=== PATIENT | female | born 1990 | race Caucasian/White ===

== ENCOUNTER 2018-06-25 11:14 | Inpatient (IN) ==
[2018-06-25] MEDS ORDERED: HUMULIN R SUBQ ONE (11:35)
[2018-06-25] MEDS ORDERED: NS 1,000 ML IV ONE ×2 (12:18→12:47)
[2018-06-25] MEDS ORDERED: LEVAQUIN 500 MG/D5W 500 MG/100 ML IVPB IV ONE (12:19)
[2018-06-25 12:46] LABS: BASO# 0.04 X1000 (0.0-0.2); BASO% 0.4 % (0.0-0.8); EOS# 0.04 X1000 (0.0-0.7); EOS% 0.4 % (0.0-10.0); HEMATOCRIT 44.8 % (37.0-47.0); IMM GRAN# 0.03 X1000 (0.0-0.04); IMM GRAN% 0.3 % (0.0-0.5); LYMPH# 1.05 X1000 (1.2-3.4); MCHC 33.5 g/dL (33-37); MCV 95.5 FL (81-99); MONO# 0.85 X1000 (0.11-0.59); MONO% 8.9 % (1.7-9.3); MPV 9.2 FL (7.4-10.4); NEUT# 7.51 X1000 (1.4-6.5); PLT 399 X1000 (130-400); RBC 4.69 XMIL (4.2-5.4); RDW 11.7 % (11.5-14.5); WBC 9.52 X1000 (4.8-10.8)
[2018-06-25 13:30] LABS: AGAP 16; ALB/GLOB RATIO 0.9; ALBUMIN 3.8 g/dL (3.5-5.0); ALKALINE PHOSPHATASE 236 U/L (32-104); BUN 30 mg/dL (8-22); CALCIUM 9.1 mg/dL (8.8-10.2); CHLORIDE 88 mmol/L (98-107); COSMO 284; CREATININE 0.9 mg/dL (0.5-0.9); ESTIMATED GFR > 60; GLUCOSE 478 mg/dL (70-104); GOT 57 U/L (10-30); GPT 42 U/L (10-36); POTASSIUM 5.7 mmol/L (3.5-5.1); SODIUM 128 mmol/L (136-145); TCO2 24 mmol/L (25-35); TOTAL BILIRUBIN 0.63 mg/dL (0.20-1.00); TOTAL PROTEIN 8.1 g/dL (6.3-8.3)
[2018-06-25 13:40] LABS: URINE SOURCE CLEAN CATCH
[2018-06-25 13:48] LABS: BILIRUBIN URINE NEGATIVE (NEGATIVE); BLOOD URINE MODERATE (NEGATIVE); COLOR ORANGE; GLUCOSE URINE >1000 mg/dL (NEGATIVE); KETONE URINE 10 mg/dL (NEGATIVE); LEUKOCYTES URINE LARGE (NEGATIVE); NITRITE URINE POSITIVE (NEGATIVE); PH URINE 5.5; PROTEIN URINE 50 mg/dL (NEGATIVE); SP GRAVITY URINE 1.021; TURBIDITY URINE TURBID (CLEAR); UROBILINOGEN URINE NORMAL (NORMAL)
[2018-06-25 13:54] LABS: UR EPITHELIAL CELLS <10 /HPF (<10); URINE BACTERIA 4+ /HPF; URINE WBC TNTC /HPF (<10)
[2018-06-25 14:04] LABS: URINE YEAST NONE SEEN
[2018-06-25] MEDS ORDERED: SODIUM BICARBONATE 4.2% IV ONE (14:09)
[2018-06-25] MEDS ORDERED: SODIUM BICARBONATE 8.4% IV PUSH ONE (14:16)
[2018-06-25] MEDS ORDERED: ZOFRAN IV PRN (14:18)
[2018-06-25] MEDS ORDERED: TYLENOL PO PRN (14:18)
[2018-06-25 14:32] LABS: ALLEN TEST NO; BE -5.4 mmoll (-3.0-3.0); BLOOD TYPE ARTERIAL; HCO3-(ACT) 20.7 mmoll (20.0-26.0); METHB 0.5 % (0.0-1.5); MODALITY ROOM AIR; O2(CT) 18.4 mL/dL (15.0-23.0); O2HB 95.9 % (95.0-99.0); PCO2(98.6) 41 mmHg (35-45); PO2(98.6) 91 mmHg (60-100); SAMPLE BLOOD; THB 13.6 g/dL (11.5-17.4); pH(98.6) 7.31 (7.35-7.45)
[2018-06-25] MEDS ORDERED: KAYEXALATE PO ONE (14:41)
[2018-06-25] MEDS: MAXIPIME 1 GM in NS 50 ML IV SCH (14:45)
[2018-06-25] MEDS: NS 1,000 ML IV SCH ×2 (15:30→22:18)
--- NOTE | 2018-06-25 15:31 | PROVIDER DOCUMENTATION ---
This chart was entered by Pilar Wong Scribe, acting as scribe for Augusto Du MD. HPI-General Adult - General Chief Complaint: High Blood Sugar Stated Complaint: HIGH BLOOD SUGAR Time Seen by Provider: 06/25/18 11:31 Source: patient, family Allergies/Adverse Reactions: Patient Allergies Allergy/AdvReac Type Severity Reaction Status Date / Time sulfamethoxazole Allergy Intermediate HIVES Verified 06/25/18 13:35 [From Bactrim] trimethoprim [From Bactrim] Allergy Intermediate HIVES Verified 06/25/18 13:35 Home Medications: Home Medication List Medication Instructions Recorded Confirmed Last Taken Type Insulin Glargine [Lantus] 30 units SQ QAM 08/16/15 06/25/18 06/25/18 History Insulin Lispro [Humalog] 10 unit SUBQ TID 08/26/15 06/25/18 06/25/18 History Insulin NPH Hum/Reg Insulin Hm 100 unit SQ BID 30 Days #1 05/27/18 06/25/18 Rx [Humulin 70/30 Kwikpen] insuln.pen - History of Present Illness -Gen Adult Nature of Presenting Problems: 28 y/o female presents to ED with hyperglycemia and dysuria onset 11 hours ago. Pt reports she ran out of insulin 11 hours ago. Pt states she "feels awful." Pt also reports painful urination and vomiting. Pt is alert and oriented. Location of Pain/Injury: reports: generalized Pain Radiation: reports: no radiation Quality of Pain: reports: aching, burning, sharp Severity: reports: mild Onset/Duration: reports: this morning (11 hours ago) Timing: reports: still present Context/Activities at Onset: reports: none Modifying Factors: improves with: other medication (insulin). worse with: urinating Associated Symptoms: reports: vomiting, other (hyperglycemia; "feels awful;" dysuria; painful urination) Similar Symptoms Previously?: No Recently seen or treated by another doctor?: No - Diabetes Related Context Context: reports: high blood sugar Review of Systems - Adult - REVIEW OF SYSTEMS - ADULT Constitutional: reports: other ("feels awful"). denies: chills, fever Eyes: reports: no symptoms reported Ears, Nose, Mouth & Throat: reports: no symptoms reported Cardiovascular: denies: chest pain, palpitations Respiratory: denies: cough, shortness of breath Gastrointestinal: reports: vomiting. denies: abdominal pain, diarrhea, nausea Genitourinary: reports: dysuria, other (painful urination) Musculoskeletal: denies: back pain, joint pain Integumentary: reports: no symptoms reported Neurological: denies: dizziness/vertigo, seizure Psychiatric: reports: no symptoms reported Endocrine: reports: other (hyperglycemia). denies: goiter Hematologic/Lymphatic: reports: no symptoms reported Allergic/Immunologic: reports: no symptoms reported All Other Systems: Reviewed and Negative Past History - Adult - PAST MEDICAL HISTORY-ADULT Review of Records: reports: Old Records Reviewed, Nursing Assessment Review, Medications Reviewed Major Childhood Illnesses: reports: denies history Cardiovascular: reports: denies history Respiratory: reports: denies history Gastrointestinal: reports: denies history Obstetrical/Gynecological: reports: denies history Genitourinary: reports: denies history Musculoskeletal: reports: denies history Neurological: reports: denies history Psychiatric: reports: denies history Endocrine/Immune: reports: Diabetes Other Conditions: reports: denies history - PRIOR SURGERIES/PROCEDURES Surgical/Procedure History: reports: BTL, , orthopedic (extremity) (R knee), other (D&C) - PRIOR HOSPITALIZATIONS Prior Hospitalizations: reports: none - IMMUNIZATION STATUS Childhood Immunizations: See Nurse Assessment Flu Vaccine: See Nurse Assessment - FAMILY HISTORY Family History: reviewed, not pertinent - SOCIAL HISTORY Smoking: less than 1 pack/day Provider spent 3-5 mins advising pt. on dangers of tobacco.: Discussed manners to quit use, and f/u contacts for add'l counseling. Substance Use: other Alcohol Use Frequency: occasionally Living Situation: family Physical Exam-General - PHYSICAL EXAM-ADULT Initial Vital Signs Reviewed: Yes - CONSTITUTIONAL General Appearance: appears well, no apparent distress, lethargic - EYES Eyes: PERRL/EOMI, pink conjunctivae - HEAD, EARS, NOSE, MOUTH & THROAT HENMT: normocephalic/atraumatic, moist mucous membranes, normal ENT inspection - NECK Neck: non-tender, full range of motion - RESPIRATORY Respiratory: chest non-tender, lungs clear, normal breath sounds - CARDIOVASCULAR Cardiovascular: tachycardia - GASTROINTESTINAL (ABDOMEN) Abdominal Exam: normal bowel sounds, soft, tenderness (suprapubic) - MUSCULOSKELETAL Back Exam: normal inspection, no CVA tenderness Extremity: normal range of motion, non-tender, normal gait - SKIN Integumentary: normal color, warm/dry - NEUROLOGIC Neurologic: grossly normal - PSYCHIATRIC Psych/Mental Status: normal mood/affect, normal thought content, normal thought process Progress - PLAN OF CARE/RESULTS Progress/Plan/Lab Results: Vital Signs - 8 hr 06/25/18 11:19 Temperature 98.2 F Pulse Rate 136 H Respiratory Rate 16 Blood Pressure 108/90 O2 Sat by Pulse Oximetry 99 Laboratory Results - last 24 hr 06/25/18 06/25/18 11:24 12:30 WBC 9.52 RBC 4.69 Hgb 15.0 Hct 44.8 MCV 95.5 MCH 32.0 H MCHC 33.5 RDW Std Deviation 11.7 Plt Count 399 MPV 9.2 Immature Gran % (Auto) 0.3 Neut % (Auto) 79.0 H Lymph % (Auto) 11.0 L Gillespie % (Auto) 8.9 Eos % (Auto) 0.4 Baso % (Auto) 0.4 Immature Gran # (Auto) 0.03 Neut # (Auto) 7.51 H Lymph # (Auto) 1.05 L Gillespie # (Auto) 0.85 H Eos # (Auto) 0.04 Baso # (Auto) 0.04 POC Glucose 474 H Orders Category Date Time Status Glucose Finger Stick [FSBS/Accucheck Result] NOW Care 06/25/18 12:55 Active Saline Loc NOW Care 06/25/18 11:34 Active CBC WITH ELECTRONIC DIFF [HEME] Stat Lab 06/25/18 12:30 Completed COMPREHENSIVE METABOLIC PANEL [CHEM] Stat Lab 06/25/18 12:30 Received MAGNESIUM [CHEM] Stat Lab 06/25/18 12:30 Received UA [URINALYSIS W/POSS RFLX CULT] [URINALYSIS] Stat Lab 06/25/18 11:34 Uncollected 0.9% Sodium Chloride Inj [Ns] 1,000 ml Med 06/25/18 12:18 Active IV 999 mls/hr 0.9% Sodium Chloride Inj [Ns] 1,000 ml Med 06/25/18 12:47 Active IV 999 mls/hr Insulin Human Regular [Humulin R] Med 06/25/18 11:35 Discontinued 6 unit SUBQ NOW ONE Levofloxacin 500 mg/D5w [Levaquin 500 mg/D5w] Med 06/25/18 12:19 Active 500 mg in 100 ml IV NOW EKG [EKG] Stat Ther 06/25/18 11:25 Ordered Laboratory Tests 06/25/18 06/25/18 06/25/18 11:24 12:30 12:30 WBC 9.52 RBC 4.69 Hgb 15.0 Hct 44.8 MCV 95.5 MCH 32.0 H MCHC 33.5 RDW Std Deviation 11.7 Plt Count 399 MPV 9.2 Immature Gran % (Auto) 0.3 Neut % (Auto) 79.0 H Lymph % (Auto) 11.0 L Gillespie % (Auto) 8.9 Eos % (Auto) 0.4 Baso % (Auto) 0.4 Immature Gran # (Auto) 0.03 Neut # (Auto) 7.51 H Lymph # (Auto) 1.05 L Gillespie # (Auto) 0.85 H Eos # (Auto) 0.04 Baso # (Auto) 0.04 Sodium 128 L Potassium 5.7 H Chloride 88 L Carbon Dioxide 24 L Anion Gap 16 BUN 30 H Creatinine 0.9 Estimated GFR/1.73 m2 > 60 BUN/Creatinine Ratio 33 Glucose 478 H* POC Glucose 474 H Calculated Osmolality 284 Calcium 9.1 Magnesium Total Bilirubin 0.63 AST 57 H ALT 42 H Alkaline Phosphatase 236 H Total Protein 8.1 Albumin 3.8 Globulin 4.3 Albumin/Globulin Ratio 0.9 Urine Source Urine Color Urine Turbidity Urine pH Ur Specific Vina Urine Protein Ur Glucose (Stick) Ur Ketones (Stick) Urine Blood Urine Nitrite Urine Bilirubin Urobilinogen Dipstick Urine Leukocytes Urine WBC (Auto) Urine RBC (Auto) U Epithel Cells (Auto) Urine Bacteria (Auto) Urine Crystals Small Round Cells Urine Casts Urine Yeast-like Cells 06/25/18 06/25/18 06/25/18 12:30 13:15 13:29 WBC RBC Hgb Hct MCV MCH MCHC RDW Std Deviation Plt Count MPV Immature Gran % (Auto) Neut % (Auto) Lymph % (Auto) Gillespie % (Auto) Eos % (Auto) Baso % (Auto) Immature Gran # (Auto) Neut # (Auto) Lymph # (Auto) Gillespie # (Auto) Eos # (Auto) Baso # (Auto) Sodium Potassium Chloride Carbon Dioxide Anion Gap BUN Creatinine Estimated GFR/1.73 m2 BUN/Creatinine Ratio Glucose POC Glucose 476 H Calculated Osmolality Calcium Magnesium 1.9 Total Bilirubin AST ALT Alkaline Phosphatase Total Protein Albumin Globulin Albumin/Globulin Ratio Urine Source CLEAN CATCH Urine Color ORANGE Urine Turbidity TURBID Urine pH 5.5 Ur Specific Vina 1.021 Urine Protein 50 A Ur Glucose (Stick) >1000 A Ur Ketones (Stick) 10 A Urine Blood MODERATE A Urine Nitrite POSITIVE A Urine Bilirubin NEGATIVE Urobilinogen Dipstick NORMAL Urine Leukocytes LARGE A Urine WBC (Auto) TNTC A Urine RBC (Auto) 10-20 A U Epithel Cells (Auto) <10 Urine Bacteria (Auto) 4+ Urine Crystals Not Reportable Small Round Cells Not Reportable Urine Casts Not Reportable Urine Yeast-like Cells NONE SEEN A/P: Pt in DKA, started DKA protocol. will admit to ICU for higher level of care. Result Diagrams: 06/25/18 12:30 06/25/18 12:30 - REASSESSMENT Reassessment #1 Time Reassessed: 11:45 Status: unchanged Reassessment #2 Time Reassessed: 13:30 Status: unchanged (awiaitng Tx) - EKG 1 Time of EKG reading by physician:: 12:30 EKG Read and Signed by:: Augusto Du EKG Interpretation (*Must complete 3 of following elements*): Abnormal Rate: 123 Rhythm: Unusual P axis, possible ectopic atrial tach [place]: normal QRS: other (L posterior fascicular block; cannot rule out anterior infarct) OK Interval: normal ST Wave: normal - CONSULTS/PCP/HOSPITALIST Notification #1 *Consult/PCP/Hospitalist*: Ivis sharma Dr. Time Discussed: 14:29 Reason/Comments: DKA Consult Disposition: Admit Departure - Departure Date of Disposition Decision: 06/25/18 Time of Disposition Decision: 14:29 DIAGNOSIS: Tobacco abuse disorder DKA (diabetic ketoacidoses) Qualifiers: Diabetes mellitus complication detail: without coma UTI (urinary tract infection) Qualifiers: Urinary tract infection type: site unspecified Hematuria presence: with hematuria Qualified Code(s): N39.0 - Urinary tract infection, site not specified ; R31.9 - Hematuria, unspecified Disposition: ADMITTED INPATIENT 09 Certified Medical Emergency: Emergent Condition: Fair - Critical Care Note This patient required my direct & personal management of CC.: No Attestation - Physician/ ALFREDO Attestation Patient care was provided by Advanced Practice Provider:: No The physician spent face to face time with patient:: Yes Advanced Practice Provider documentation review:: Supervising physician onsite and consulted in the evaluation and care of this patient. The physician did have a face to face encounter with the patient. This chart was documented by the indicated scribe, (Pilar Wong, Eddie) and accurately reflects the services I performed and decisions made by me, Augusto Du MD, as attested by the provider's signature.
--- NOTE | 2018-06-25 15:45 | HISTORY AND PHYSICAL ---
PRIMARY CARE PROVIDER: Dr. Foster. CHIEF COMPLAINT: Nausea, vomiting, burning with urination. HISTORY OF PRESENT ILLNESS: Ms. Eugene Nuñez is a 28-year-old female with a medical history of diabetes mellitus type 1, frequent DKA, anxiety, depression, who states that the only insulin she has been able to take is regular insulin with her last dose being this morning. Her other prescription insulin she has not had filled due to her Medicaid being stopped. She states that she applied one month ago and is waiting for a response. She claims to have had some nausea and vomiting with abdominal pain. The last time she had vomiting was yesterday morning or Tuesday morning with generalized stomach pain. She is able to tolerate fluids now. She also has complaints of urinary urgency with dysuria and foul smell. Denies any fever with this. She claims that her sugar has been running high, so when she came here her blood glucose level was 478 with a decreased anion gap and acidosis. So, will admit and treat her for DKA. She is alert and will answer questions without any problems. Will admit to [facility]. PAST MEDICAL HISTORY: 1. Diabetes mellitus type 1. 2. Frequent DKA, at least two times in the last six months. 3. Anxiety. 4. Depression. SOCIAL HISTORY: Half pack per day for three years. Denies alcohol or illicit drug use. FAMILY HISTORY: She denies any medical family history with her mother or father. ALLERGIES: Bactrim. HOME MEDICATIONS: 1. Lantus 30 units subcutaneously daily, but she has not been taking that. 2. Insulin Lispro 10 units subcutaneously t.i.d. She has also not been taking that. 3. Humulin 70/30 100 units subcutaneously twice a day. She has not been able to take that as well. 4. She states she takes insulin that she can get from [facility]. REVIEW OF SYSTEMS: A 14-point review of systems are complete and all are negative except for those mentioned above in the HPI. Positives are burning with voiding, foul smell with urine, urinary frequency, nausea, vomiting, and stomach pain for two days. PHYSICAL EXAMINATION: VITAL SIGNS: Temperature 98.2, heart rate 136, respiratory rate 16, blood pressure 108/90, O2 saturation 99% on room air. She is 5 ft 5 inches tall and weighs 115 pounds. BMI is 19.9. GENERAL: Ms. Eugene Nuñez is a 28-year-old female. She is in no acute distress. She is able to answer questions appropriately. HEENT: Atraumatic, normocephalic. Pupils are equal, round, and reactive to light. Extraocular movements intact. Mucous membranes are dry. NECK: Trachea midline. CARDIOVASCULAR: S1 and S2. Tachycardic rate and rhythm. No rubs, gallops or murmurs. No lower extremity edema. Has +2 dorsalis and radial pulses. Negative JVD or carotid bruits. PULMONARY: Clear to auscultate. Bilateral breath sounds. No accessory muscle use or work of breathing noted. GI: Soft. Tender. Nondistended. Positive bowel sounds x4. EXTREMITIES: Moves all extremities equally with full range of motion. NEUROLOGIC: Alert and oriented x3. Follows commands. Sensory is intact. SKIN: Warm, dry, intact. LABORATORY DATA: White blood cells 9000, hemoglobin 15, hematocrit 44, platelet count 399. ABGs on room air, pH 7.31, pCO2 41, pO2 91, bicarb 20, base excess negative 5, saturation 95%. Lactate 4.8. Sodium 128, potassium 5.7, BUN 30, creatinine 0.9, glucose 478. Calcium 9.1, phosphorus 5.1, magnesium 1.9, bilirubin 0.63. AST 57, ALT 42, alkaline phosphatase 236, albumin 3.8. Triglycerides 203. Total cholesterol 177. LDL 117. HDL 38. Urinalysis with 50 protein, over 1000 glucose, 10 ketones, moderate blood, positive nitrites, large leukocytes, too numerous to count white blood cells, 10 to 20 red blood cells, 4+ bacteria. IMAGING: None. ASSESSMENT/PLAN: 1. Diabetes mellitus type 1 with diabetic ketoacidosis. Mild diabetic ketoacidosis. Will initiate diabetic ketoacidosis protocol. Give her intravenous fluids. Start her on an insulin drip and moderate her in the [facility]. She is not severely acidotic so she can go ahead and start having clears. Will do antiemetics for nausea. 2. Lactic acidosis. This is secondary to diabetic ketoacidosis. She will receive intravenous fluid hydration. 3. Urinary tract infection with normal white blood cell count and she has bacteria and nitrates in her urine with urinary symptoms, so she will be on cefepime. She did get a one-time dose of Levaquin. 4. Anxiety and depression. 5. Tobacco abuse. Cessation discussed. 6. Medical noncompliance. She states is due to losing her Medicaid. Apparently she has applied for it about a month ago and is waiting for results or response. 7. Deep venous thrombosis prophylaxis with sequential compression devices. Dictated by DAPHNE Villasenor for Zachariah Chaves MD Addendum: Patient seen and examined by myself. Agree with DECORATING MACHINE OPERATOR note. It reflects my assessment and plan. Patient is being admitted to hospital for DKA. She was not using her insulin recently but it is mild. Will start insulin drip. I think it could have been triggered by UTI. Urine culture ordered. Will start Cefepime and adjust antibiotics accordingly. cc: DAPHNE Villasenor MD Kenneth E. Mashburn, MD [facility] HOSPITALJames
[2018-06-25] MEDS: HUMULIN R 100 UNIT in NS 100 ML IV SCH ×2 (16:30→17:47)
[2018-06-25 17:38] LABS: AMYLASE 19 U/L (20-200); CK PROFILE 40 U/L (24-173); LIPASE 16 U/L (13-60)
[2018-06-25 17:41] LABS: HEMOGLOBIN A1C 9.6 % (4.8-6.0)
[2018-06-25 18:00] LABS: ACETONE SERUM NEGATIVE (NEGATIVE)
--- NOTE | 2018-06-25 18:28 | Diag Imaging Result Doc PS360 ---
EXAM: US RENAL 2 (RETROPER) COMPLETE INDICATION: suspected pyelonephritis TECHNIQUE: COMPARISON: None. FINDINGS: The kidneys are grossly normal in echotexture with no discrete renal mass or hydronephrosis. The right kidney measures 12.1 cm and the left kidney measures 9.5 cm in the greatest longitudinal axes. The renal cortices measure up to 0.8 cm in thickness. Urinary bladder is at least partially distended. The urinary bladder wall is somewhat thickened diffusely measuring up to 7 mm in thickness. Correlate clinically to exclude cystitis. IMPRESSION: Diffuse thickening of the urinary bladder wall suggesting possible cystitis. Grossly unremarkable kidneys. Electronically signed by Ga Gallagher 06/25/2018 6:26 PM
[2018-06-25 18:46] LABS: ALLEN TEST NO; BE 1.7 mmoll (-3.0-3.0); BLOOD TYPE ARTERIAL; HCO3-(ACT) 26.2 mmoll (20.0-26.0); METHB 0.1 % (0.0-1.5); O2(CT) 17.6 mL/dL (15.0-23.0); O2HB 96.4 % (95.0-99.0); PCO2(98.6) 42 mmHg (35-45); PO2(98.6) 93 mmHg (60-100); SAMPLE BLOOD; SAO2 98.7 % (95.0-100.0); THB 12.9 g/dL (11.5-17.4); pH(98.6) 7.41 (7.35-7.45)
[2018-06-25] MEDS ORDERED: D5 NS 1,000 ML ONE (18:55)
[2018-06-25] MEDS ORDERED: MAGNESIUM SULFATE 2 GM/S.W.I. 2 GM/50 ML IVPB IV PRN (18:59)
[2018-06-25] MEDS ORDERED: POTASSIUM CHLORIDE 40 MEQ/SWI 40 MEQ/100 ML IVPB IV PRN (18:59)
[2018-06-25] MEDS ORDERED: POTASSIUM CHLORIDE 20% LIQUID PO PRN (18:59)
[2018-06-25] MEDS ORDERED: SODIUM BICARBONATE 8.4% 100 MEQ in D5W 500 ML IV PRN (18:59)
[2018-06-25] MEDS: D5 NS 1,000 ML IV SCH (18:59)
[2018-06-25] MEDS ORDERED: D50W SYRINGE IV PRN (18:59)
[2018-06-25] MEDS ORDERED: SODIUM BICARBONATE 8.4% 50 MEQ in D5W 250 ML IV PRN (18:59)
[2018-06-25] MEDS ORDERED: POTASSIUM CHLORIDE 20 MEQ/SWI 20 MEQ/100 ML IVPB IV PRN (18:59)
[2018-06-25] MEDS ORDERED: SODIUM PHOSPHATE 30 MMOL in D5W 250 ML IV PRN (18:59)
[2018-06-25] MEDS ORDERED: POTASSIUM CHLORIDE 10% LIQUID PO PRN (18:59)
[2018-06-26 00:10] LABS: AGAP 13; BUN 13 mg/dL (8-22); CALCIUM 7.7 mg/dL (8.8-10.2); CHLORIDE 97 mmol/L (98-107); COSMO 275; CREATININE 0.6 mg/dL (0.5-0.9); ESTIMATED GFR > 60; GLUCOSE 160 mg/dL (70-104); MAGNESIUM 1.6 mg/dL (1.5-2.7); POTASSIUM 3.6 mmol/L (3.5-5.1); SODIUM 136 mmol/L (136-145); TCO2 26 mmol/L (25-35)
[2018-06-26] MEDS: D5 NS 1,000 ML IV SCH (02:56)
[2018-06-26] MEDS: MAXIPIME 1 GM in NS 50 ML IV SCH ×2 (03:00→17:17)
[2018-06-26 05:30] LABS: BASO# 0.02 X1000 (0.0-0.2); BASO% 0.4 % (0.0-0.8); EOS# 0.09 X1000 (0.0-0.7); EOS% 1.9 % (0.0-10.0); HEMATOCRIT 36.2 % (37.0-47.0); LYMPH# 1.55 X1000 (1.2-3.4); LYMPH% 32.5 % (20.5-51.1); MCH 32.2 PG (27-31); MCHC 33.1 g/dL (33-37); MCV 97.1 FL (81-99); MONO# 0.56 X1000 (0.11-0.59); MONO% 11.7 % (1.7-9.3); MPV 8.5 FL (7.4-10.4); NEUT# 2.55 X1000 (1.4-6.5); NEUT% 53.5 % (42.2-75.2); PLT 290 X1000 (130-400); RBC 3.73 XMIL (4.2-5.4); RDW 11.5 % (11.5-14.5); WBC 4.77 X1000 (4.8-10.8)
[2018-06-26 05:45] LABS: AGAP 11; BUN 10 mg/dL (8-22); CHLORIDE 101 mmol/L (98-107); COSMO 282; CREATININE 0.5 mg/dL (0.5-0.9); ESTIMATED GFR > 60; GLUCOSE 166 mg/dL (70-104); MAGNESIUM 1.7 mg/dL (1.5-2.7); PHOSPHORUS 2.7 mg/dL (2.7-4.5); POTASSIUM 3.2 mmol/L (3.5-5.1); SODIUM 140 mmol/L (136-145); TCO2 28 mmol/L (25-35)
[2018-06-26 06:04] LABS: ALLEN TEST YES; BE 3.9 mmoll (-3.0-3.0); BLOOD TYPE ARTERIAL; HCO3-(ACT) 27.9 mmoll (20.0-26.0); METHB 0.8 % (0.0-1.5); MODALITY ROOM AIR; O2(CT) 16.2 mL/dL (15.0-23.0); O2HB 95.6 % (95.0-99.0); PCO2(98.6) 46 mmHg (35-45); PO2(98.6) 94 mmHg (60-100); SAMPLE BLOOD; SAO2 97.9 % (95.0-100.0); pH(98.6) 7.41 (7.35-7.45)
[2018-06-26] MEDS: NS 1,000 ML IV SCH ×4 (06:30→21:11)
[2018-06-26] MEDS ORDERED: POTASSIUM CHLORIDE 20% LIQUID PO ONE (06:31)
--- NOTE | 2018-06-26 07:01 | EKG Report ---
Test Performed on : 06/26/2018 06:53:16 AM Test Reason : dka Blood Pressure : / mmHG Vent. Rate : 096 BPM Atrial Rate : 096 BPM P-R Int : 134 ms QRS Dur : 080 ms QT Int : 404 ms P-R-T Axes : 077 057 061 degrees QTc Int : 510 ms Normal sinus rhythm. Normal ECG When compared with ECG of 25-JUN-2018 11:31, (Unconfirmed) Arm lead reversal is now corrected Nonspecific T wave abnormality now evident in Anterior leads Confirmed by Ami HERRERA, Corwin Rivera ([id number]) on 06/26/2018 11:54:47 AM
[2018-06-26] MEDS: HUMALOG SUBQ SCH ×6 (08:00→20:50)
--- NOTE | 2018-06-26 08:22 | EKG Report ---
Test Performed on : 06/25/2018 11:31:28 AM Test Reason : TACHYCARDIA/HYPERGLYCEMIA Blood Pressure : / mmHG Vent. Rate : 123 BPM Atrial Rate : 123 BPM P-R Int : 120 ms QRS Dur : 084 ms QT Int : 314 ms P-R-T Axes : 146 136 140 degrees QTc Int : 449 ms Suspect arm lead reversal, interpretation assumes no reversal Unusual P axis, possible ectopic atrial tachycardia. Left posterior fascicular block Cannot rule out Anterior infarct , age undetermined Abnormal ECG When compared with ECG of 18-MAY-2014 22:52, Ectopic atrial rhythm. has replaced Sinus rhythm. Nonspecific T wave abnormality now evident in Inferior leads Nonspecific T wave abnormality now evident in Lateral leads Unconfirmed Result
[2018-06-26] MEDS: PRILOSEC PO SCH (10:00)
[2018-06-26] MEDS ORDERED: LEVAQUIN 500 MG in NS 100 ML IV SCH (12:00)
[2018-06-26] MEDS ORDERED: OFIRMEV 1000 MG/ISOTONIC SOLN 1,000 MG/100 ML BOTTLE IV PRN (14:14)
--- NOTE | 2018-06-26 14:29 | PROGRESS NOTE ---
DATE: 06/26/2018 SUBJECTIVE: Patient reports feeling fine. Reports no nausea or vomiting. Reports moderate to severe back pain and she requests pain medications for that. OBJECTIVE: Vital Signs: Temperature degrees 97.2, heart rate 88, respiratory rate 16, blood pressure 104/70, O2 saturation 100% on room air. General Examination: This is a 28-year-old female lying in bed, in no acute distress. Cardiovascular: S1, S2 heard. No murmurs, gallops, or rubs. Regular rate and rhythm. Respiratory: Clear bilaterally to auscultation. No work of breathing or using accessory muscles. Abdomen: Soft. Nontender to palpation. Bowel sounds present. No organomegaly. Extremities: No clubbing, cyanosis, or edema. Peripheral pulses present in both legs. Neurological: Patient is alert and oriented x3. Moves 4 extremities. LABORATORY DATA: White cell count 4.77, hemoglobin 12.0, hematocrit 36.2, platelets 220,000. ABG shows pH 7.41, with pCO2 46, PO2 94. BMP remarkable for glucose 166, potassium 3.2. The microbiology shows urine culture that is positive for gram-negative rods. ASSESSMENT AND PLAN: 1. Diabetic ketoacidosis. That condition is resolved. She has been placed on home medications and insulin sliding scale. We will continue with the same management. 2. Urinary tract infection. Clinically, this patient is feeling better. No burning on urination. The patient is on cefepime. We are awaiting results of urine culture. 3. Anxiety and depression. We will continue home medications. 4. Tobacco abuse. Patient advised to stop smoking. 5. Back pain. We will provide pain medications for her. 6. Disposition. I think if we have the results of the urine culture tomorrow and we can treat the infection with oral antibiotics she can be discharged. cc: Zachariah Chaves MD
[2018-06-26 20:35] LABS: AGAP 15; BUN 11 mg/dL (8-22); CHLORIDE 97 mmol/L (98-107); COSMO 277; CREATININE 0.6 mg/dL (0.5-0.9); ESTIMATED GFR > 60; GLUCOSE 194 mg/dL (70-104); POTASSIUM 3.1 mmol/L (3.5-5.1); SODIUM 136 mmol/L (136-145); TCO2 24 mmol/L (25-35)
[2018-06-26] MEDS ORDERED: INSULIN PEN NEEDLES ONE (22:28)
[2018-06-26] MEDS: BASAGLAR SUBQ SCH (23:13)
[2018-06-27] MEDS ORDERED: KLOR-CON PO ONE (00:08)
[2018-06-27] MEDS ORDERED: OXY IR PO ONE (00:09)
[2018-06-27] MEDS: MAXIPIME 1 GM in NS 50 ML IV SCH ×3 (03:43→15:37)
[2018-06-27] MEDS: NS 1,000 ML IV SCH ×3 (04:48→15:45)
[2018-06-27] MEDS: HUMALOG SUBQ SCH ×6 (05:59→21:21)
[2018-06-27 07:58] LABS: AGAP 10; BUN 12 mg/dL (8-22); CALCIUM 7.9 mg/dL (8.8-10.2); CHLORIDE 98 mmol/L (98-107); COSMO 284; CREATININE 0.5 mg/dL (0.5-0.9); ESTIMATED GFR > 60; GLUCOSE 381 mg/dL (70-104); POTASSIUM 4.6 mmol/L (3.5-5.1); SODIUM 134 mmol/L (136-145); TCO2 26 mmol/L (25-35)
[2018-06-27] MEDS: PRILOSEC PO SCH (08:54)
[2018-06-27] MEDS: LEVAQUIN 500 MG/D5W 500 MG/100 ML IVPB IV SCH (21:20)
[2018-06-27] MEDS: BASAGLAR SUBQ SCH (21:20)
[2018-06-27] MEDS: AMBIEN PO PRN (21:21)
--- NOTE | 2018-06-27 23:38 | PROGRESS NOTE ---
DATE: 06/27/2018 SUBJECTIVE: This patient states that she is feeling better, but she is complaining of lower back pain. Her blood sugar is still uncontrolled. As per the patient, when she takes the insulin glargine during the night, the next day in the morning, her blood sugar is between high 60s and 120. Then her blood sugar increases and is really high before lunch and before dinner, so I have increased her dose of Humalog from 10 to 15 before breakfast and before lunch. I will keep the Humalog 10 before dinner. I will continue with sliding scale insulin and pattern of blood sugar. She seems to be feeling a little bit better. Also, she is complaining of insomnia. I will start this patient on a low dose of Ambien. OBJECTIVE: Vital Signs: Temperature 98.2 degrees, pulse 95, respiratory rate 20, blood pressure 117/68, oxygen saturation 97 on room air. HEENT: Head normocephalic, no trauma. PERRLA. Neck: Supple. No JVD. No masses. Central trachea. Chest: Clear to auscultation. No wheezing. No rales. Abdomen: Soft. A little bit tender to palpation at the level of the periumbilical area. Extremities: No edema. No clubbing. No cyanosis. Neurological: The patient is alert and oriented x3. No focal deficits. LABORATORY: Sodium 134, potassium 4.6, chloride 98, bicarbonate 26, BUN 12, creatinine 0.5, glucose 381, calcium 7.9. ASSESSMENT AND PLAN: 1. Diabetic ketoacidosis, resolved. We have placed this patient back on her home medications. Also, I have placed this patient on Humalog 3 times a day, but I increased a little bit the dose before breakfast and lunch. We will continue with sliding scale insulin and pattern of blood sugar as well. 2. Urinary tract infection. I have placed this patient on levofloxacin because she has a positive culture that showed Escherichia coli that is basically pansensitive. We will continue with the same management. 3. Uncontrolled diabetes. Her hemoglobin A1c is 9.6. I explained to her that she needs to follow a diet and use her medications as prescribed. 4. Tobacco abuse. This patient has been highly advised against tobacco use. I will continue with daily cessation education. 5. Anxiety and depression. She is not taking anything at home, but she is complaining of insomnia during the night. She asked for any kind of medication, so I will put her on a low dose of Ambien and I will monitor. 6. Back pain. Continue with the same management. 7. Disposition: This patient seems to be doing better. Blood culture showed E. coli which is pansensitive. I have started this patient on levofloxacin. I will try to control her blood sugar so she can go home. cc: Dash Velarde MD
[2018-06-28] MEDS: NS 1,000 ML IV SCH ×3 (03:04→20:44)
[2018-06-28] MEDS: HUMALOG SUBQ SCH ×6 (06:17→22:00)
[2018-06-28 07:48] LABS: AGAP 10; BUN 10 mg/dL (8-22); CALCIUM 7.9 mg/dL (8.8-10.2); CHLORIDE 102 mmol/L (98-107); COSMO 280; CREATININE 0.4 mg/dL (0.5-0.9); ESTIMATED GFR > 60; GLUCOSE 65 mg/dL (70-104); POTASSIUM 3.3 mmol/L (3.5-5.1); SODIUM 142 mmol/L (136-145); TCO2 30 mmol/L (25-35)
[2018-06-28] MEDS: PRILOSEC PO SCH (09:28)
[2018-06-28] MEDS ORDERED: KLOR-CON PO ONE (11:15)
--- NOTE | 2018-06-28 13:49 | PROGRESS NOTE ---
DATE: 06/28/2018 SUBJECTIVE: This patient states that she is feeling better. Her blood sugar in the morning is better controlled. I will continue with the plan that I had yesterday, I increased the Humalog before breakfast and lunch. Hopefully, tomorrow we will be able to discharge this patient if the blood sugar is controlled. OBJECTIVE: Vital Signs: Temperature 97.2, pulse 80, respiratory rate 16, blood pressure 132/92, oxygen saturation 100% on room air. HEENT: Head normocephalic. No trauma. PERRLA. Neck: Supple. No JVD. No masses. Central trachea. Chest: Clear to auscultation. No wheezing. No rales. Abdomen: Soft, a little bit tender to palpation at the level of the periumbilical area. Extremities: No edema. No clubbing. No cyanosis. Neurological: The patient is alert and oriented x3. No focal deficits. LABORATORY: Sodium 142, potassium 3.3 chloride 102, bicarbonate 30, BUN 10, creatinine 0.4, glucose 65 in the morning and 128 recently. Calcium 7.9. ASSESSMENT AND PLAN: 1. Diabetic ketoacidosis, resolved. I will continue with the same management for now. It looks like the blood sugar is better controlled. We will monitor. 2. Uncontrolled diabetes. Hemoglobin A1c is 9.6. I have increased the dose of the Humalog at breakfast and lunch. Let us see how she does but it has been controlled so far. 3. Urinary tract infection. Continue with levofloxacin. 4. Tobacco use. This patient has been highly advised against tobacco use. I will continue with daily cessation education. 5. Anxiety and depression, aware. She is not depressed or anxious at this moment. 6. Back pain. Continue with same management. DISPOSITION: This patient is doing better. Hopefully, I will be able to discharge this patient after controlling her blood sugar. cc: Dash Velarde MD
[2018-06-28] MEDS ORDERED: HUMALOG SUBQ SCH ×2 (16:00)
[2018-06-28] MEDS: AMBIEN PO PRN (20:44)
[2018-06-28] MEDS: LEVAQUIN 500 MG/D5W 500 MG/100 ML IVPB IV SCH (20:44)
[2018-06-28] MEDS: BASAGLAR SUBQ SCH (22:00)
[2018-06-29] MEDS ORDERED: TYLENOL PO ONE (02:38)
[2018-06-29 06:55] LABS: AGAP 8; BUN 16 mg/dL (8-22); CALCIUM 8.3 mg/dL (8.8-10.2); CHLORIDE 102 mmol/L (98-107); COSMO 283; CREATININE 0.4 mg/dL (0.5-0.9); ESTIMATED GFR > 60; GLUCOSE 72 mg/dL (70-104); SODIUM 142 mmol/L (136-145); TCO2 32 mmol/L (25-35)
[2018-06-29] MEDS: HUMALOG SUBQ SCH ×4 (07:40→10:54)
[2018-06-29] MEDS: NS 1,000 ML IV SCH (08:17)
[2018-06-29] MEDS: PRILOSEC PO SCH (08:18)
[2018-06-29] MEDS ORDERED: INSULIN PEN NEEDLES ONE (14:49)
[2018-06-29 15:25] VITALS: BP 135/94
--- NOTE | 2018-07-01 02:19 | DISCHARGE SUMMARY ---
ADMISSION DATE: 06/25/2018 DISCHARGE DATE: 06/29/2018 DISCHARGE DIAGNOSES: 1. Diabetic ketoacidosis, resolved. 2. Uncontrolled diabetes with a hemoglobin A1c of 9.6. 3. Urinary tract infection due to Escherichia coli. 4. Tobacco abuse. 5. Anxiety and depression. HOSPITAL COURSE: A 36-year-old female with a past medical history of type 1 diabetes, frequent DKA, anxiety and depression, admitted on 07/03/2018. As per the patient, the only insulin that she was able to take was the regular insulin, with her last dose being the morning of admission, but she had not been being able to fill the rest of the prescription because she lost her insurance. She came in with hyperglycemia and signs of DKA. She had some nausea, vomiting, and abdominal pain. Also, she has urinary frequency with dysuria and foul smell. She denies any fever or chills. She claims that her sugar has been running high. Upon admission, the blood sugar was around 478 with high anion gap. We initiated the DKA protocol. She received IV fluids. We took care of electrolytes. This patient was placed on antibiotics as well. Probably DKA was triggered by the UTI and the medication noncompliance. The patient was improving on a daily basis. The anion gap closed. We received a urine culture that showed E. Coli. On discharge examination, the patient is alert and oriented x3, no focal deficits. LABORATORY: Sodium 142, potassium 4,0, chloride 102, bicarbonate 32, BUN 16, creatinine 0.4, anion gap 8, glucose 72, calcium 8.3. DISCHARGE PLAN: Followup by her primary care doctor in 1 or 2 weeks. 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 DISCHARGE MEDICATIONS: 1. Insulin glargine 40 units subcutaneous at bedtime. 2. Insulin lispro 15 units subcutaneous before breakfast and lunch, and 10 units before dinner. 3. Zolpidem 5 mg p.o. at bedtime as needed for insomnia. 4. Levofloxacin 500 mg p.o. daily. TIME DISCHARGING THIS PATIENT: 35 minutes. cc: Dash Velarde MD
== END 2018-06-29 16:28 | disposition home or self-care (01) | DRG 638 ==
LOC: ED 11:14 → SUATTDRO 14:33 → EDIPHOLD 14:33 → 4N 06-26 10:03
PROVIDERS: ATTEND Internal Medicine
CPT/HCPCS: 76770; 80048; 80053; 80061; 81001; 82009; 82150; 82550; 82805; 82948; 83036; 83605; 83690; 83721; 83735; 84100; 84484; 84703; 85025; 87040; 87077; 87088; 87186; 93005; 96365; 96366; 96368; 99285; A9270; J0131; J0692; J1815; J1956; J7030; J7042; XXXXX

== ENCOUNTER 2019-01-04 09:49 | Inpatient (IN) ==
[2019-01-04] MEDS ORDERED: NS 1,000 ML IV ONE (09:57)
[2019-01-04] MEDS ORDERED: HUMULIN R IV ONE (09:57)
--- NOTE | 2019-01-04 09:57 | PROVIDER DOCUMENTATION ---
HPI-Abdominal Pain/GI Problem - General Stated Complaint: hyperglycemic Time Seen by Provider: 01/04/19 09:52 Allergies/Adverse Reactions: Patient Allergies Allergy/AdvReac Type Severity Reaction Status Date / Time sulfamethoxazole Allergy Intermediate HIVES Verified 07/24/18 18:45 [From Bactrim] trimethoprim [From Bactrim] Allergy Intermediate HIVES Verified 07/24/18 18:45 Home Medications: Home Medication List Medication Instructions Recorded Confirmed Last Taken Type Insulin Lispro [Humalog] 10 unit SUBQ TID AC 08/26/15 06/26/18 06/25/18 History Insulin Glargine [Basaglar] 40 unit SUBQ QHS #1 insuln.pen 06/29/18 Unknown Rx Levofloxacin [Levaquin] 500 mg PO DAILY #3 tab 06/29/18 Unknown Rx Zolpidem [Ambien] 5 mg PO HS PRN PRN #10 tab 06/29/18 Unknown Rx Naproxen Sodium [Anaprox Ds] 550 mg PO Q12H PRN #20 tab 08/28/18 Unknown Rx Past History - Adult - PAST MEDICAL HISTORY-ADULT Major Childhood Illnesses: reports: denies history Cardiovascular: reports: denies history Respiratory: reports: denies history Gastrointestinal: reports: denies history Obstetrical/Gynecological: reports: denies history Genitourinary: reports: denies history Musculoskeletal: reports: denies history Neurological: reports: denies history Psychiatric: reports: denies history Endocrine/Immune: reports: Diabetes Other Conditions: reports: denies history - PRIOR SURGERIES/PROCEDURES Surgical/Procedure History: reports: BTL, , orthopedic (extremity) (R knee), other (D&C) - PRIOR HOSPITALIZATIONS Prior Hospitalizations: reports: none - IMMUNIZATION STATUS Childhood Immunizations: See Nurse Assessment Flu Vaccine: See Nurse Assessment - FAMILY HISTORY Family History: reviewed, not pertinent Progress - PLAN OF CARE/RESULTS Progress/Plan/Lab Results: Orders Category Date Time Status ED: Urine Bedside ORDERED Care 01/04/19 09:53 Ordered Nursing- Obtain EKG ONCE Care 01/04/19 09:53 Ordered ABG [RESP] Stat Lab 01/04/19 09:53 Ordered CBC WITH ELECTRONIC DIFF [HEME] Stat Lab 01/04/19 09:53 Uncollected COMPREHENSIVE METABOLIC PANEL [CHEM] Stat Lab 01/04/19 09:53 Uncollected URINALYSIS W/POSS RFLX CULT [URINALYSIS] Stat Lab 01/04/19 09:53 Uncollected EKG [EKG] Stat Ther 01/04/19 09:53 Ordered Departure - Departure Referrals and Follow-Ups: Mikie Bui Jr, MD [Primary Care Provider] -
[2019-01-04] MEDS ORDERED: ZOFRAN IV ONE (09:58)
[2019-01-04 10:27] LABS: BASO# 0.06 X1000 (0.0-0.2); BASO% 0.7 % (0.0-0.8); EOS# 0.04 X1000 (0.0-0.7); EOS% 0.4 % (0.0-10.0); HEMATOCRIT 50.6 % (37.0-47.0); HEMOGLOBIN 16.7 g/dL (12.0-16.0); IMM GRAN# 0.03 X1000 (0.0-0.04); IMM GRAN% 0.3 % (0.0-0.5); LYMPH# 1.99 X1000 (1.2-3.4); LYMPH% 22.4 % (20.5-51.1); MCH 30.8 PG (27-31); MCV 93.4 FL (81-99); MONO# 0.23 X1000 (0.11-0.59); MONO% 2.6 % (1.7-9.3); MPV 8.9 FL (7.4-10.4); NEUT# 6.54 X1000 (1.4-6.5); NEUT% 73.6 % (42.2-75.2); PLT 546 X1000 (130-400); RBC 5.42 XMIL (4.2-5.4); RDW 12.9 % (11.5-14.5); WBC 8.89 X1000 (4.8-10.8)
[2019-01-04 10:41] LABS: ALLEN TEST YES; BE -13.6 mmoll (-3.0-3.0); BLOOD TYPE ARTERIAL; HCO3-(ACT) 14.3 mmoll (20.0-26.0); METHB 0.7 % (0.0-1.5); O2HB 96.3 % (95.0-99.0); PCO2(98.6) 23 mmHg (35-45); PO2(98.6) 110 mmHg (60-100); SAMPLE BLOOD; SAO2 98.6 % (95.0-100.0); THB 16.9 g/dL (11.5-17.4); pH(98.6) 7.28 (7.35-7.45)
[2019-01-04 10:54] LABS: ALBUMIN 4.3 g/dL (3.5-5.0); CALCIUM 9.9 mg/dL (8.8-10.2); CREATININE 1.2 mg/dL (0.5-0.9); MAGNESIUM 2.2 mg/dL (1.5-2.7); PHOSPHORUS 5.2 mg/dL (2.7-4.5); POTASSIUM 4.5 mmol/L (3.5-5.1); TOTAL BILIRUBIN 0.35 mg/dL (0.20-1.00); TOTAL PROTEIN 8.7 g/dL (6.3-8.3)
--- NOTE | 2019-01-04 11:10 | EKG Report ---
Test Performed on : 01/04/2019 11:07:45 AM Test Reason : possible dka Blood Pressure : / mmHG Vent. Rate : 134 BPM Atrial Rate : 134 BPM P-R Int : 096 ms QRS Dur : 086 ms QT Int : 384 ms P-R-T Axes : 041 064 045 degrees QTc Int : 573 ms Sinus tachycardia. with short [place] T wave abnormality, consider inferior ischemia Abnormal ECG When compared with ECG of 26-JUN-2018 06:53, Nonspecific T wave abnormality now evident in Lateral leads Unconfirmed Result
--- NOTE | 2019-01-04 11:14 | PROVIDER DOCUMENTATION ---
This chart was entered by Farideh Calderon Scribe, acting as scribe for Luan Sam MD. HPI-Abdominal Pain/GI Problem - General Chief Complaint: High Blood Sugar Stated Complaint: hyperglycemic Time Seen by Provider: 01/04/19 09:52 Source: patient, EMS Allergies/Adverse Reactions: Patient Allergies Allergy/AdvReac Type Severity Reaction Status Date / Time sulfamethoxazole Allergy Intermediate HIVES Verified 07/24/18 18:45 [From Bactrim] trimethoprim [From Bactrim] Allergy Intermediate HIVES Verified 07/24/18 18:45 Home Medications: Home Medication List Medication Instructions Recorded Confirmed Last Taken Type Insulin Lispro [Humalog] 10 unit SUBQ TID AC 08/26/15 06/26/18 06/25/18 History Insulin Glargine [Basaglar] 40 unit SUBQ QHS #1 insuln.pen 06/29/18 Unknown Rx Levofloxacin [Levaquin] 500 mg PO DAILY #3 tab 06/29/18 Unknown Rx Zolpidem [Ambien] 5 mg PO HS PRN PRN #10 tab 06/29/18 Unknown Rx Naproxen Sodium [Anaprox Ds] 550 mg PO Q12H PRN #20 tab 08/28/18 Unknown Rx - History of Present Illness-ABD Nature of Presenting Problems: 28 yof presents to the ed with c/o elevated BGL greater then 500 and has not been able to stabilize with insulin. pt has previous DKA and this feels the same. pt has had nausea but denies vomiting Abdominal Pain Onset Location: reports: generalized abdomen Pain Radiation: reports: no radiation Quality of Pain: reports: other (nausea) Severity in ED: reports: moderate Onset/Duration: reports: last night Timing: reports: still present, getting worse Activities at Onset: reports: light activity Exposure to sick contacts?: No Modifying Factors: improves with: nothing Associated Symptoms: reports: genitourinary problems (frequent urination), malaise, nausea. denies: back/neck pain, chest pain, cough, fever/chills, shortness of breath, vomiting Last BM: last night Dark Stools Present?: reports: none noticed Rectal Bleeding: reports: none # of Diarrhea Episodes: 0 Rectal Pain: reports: none # of Vomiting Episodes: 0 Bruising or Bleeding Gums?: No Similar Symptoms Previously?: Yes (DKA) Recently seen or treated by another doctor?: No Review of Systems - Adult - REVIEW OF SYSTEMS - ADULT Constitutional: reports: see HPItrista. denies: chills, fever Eyes: reports: no symptoms reported Ears, Nose, Mouth & Throat: reports: no symptoms reported Cardiovascular: denies: orthopnea, palpitations, syncope Respiratory: denies: shortness of breath, wheezing Gastrointestinal: reports: see HPI, abdominal pain, nausea. denies: diarrhea, vomiting Genitourinary: reports: see HPI, frequency Musculoskeletal: reports: no symptoms reported Integumentary: reports: no symptoms reported Neurological: denies: dizziness/vertigo, headache/migraines Psychiatric: reports: no symptoms reported Endocrine: reports: no symptoms reported Hematologic/Lymphatic: reports: no symptoms reported Allergic/Immunologic: reports: no symptoms reported All Other Systems: Reviewed and Negative Past History - Adult - PAST MEDICAL HISTORY-ADULT Review of Records: reports: Old Records Reviewed, Nursing Assessment Review, Medications Reviewed, Social history reviewed & non-contributory. Major Childhood Illnesses: reports: denies history Cardiovascular: reports: denies history Respiratory: reports: denies history Gastrointestinal: reports: denies history Obstetrical/Gynecological: reports: denies history Genitourinary: reports: denies history Musculoskeletal: reports: denies history Neurological: reports: denies history Psychiatric: reports: denies history Endocrine/Immune: reports: Diabetes Diabetes Type: Type 1 Diabetes controlled by:: Insulin Dependent Other Conditions: reports: denies history - PRIOR SURGERIES/PROCEDURES Surgical/Procedure History: reports: BTL, , orthopedic (extremity) (R knee), other (D&C) - PRIOR HOSPITALIZATIONS Prior Hospitalizations: reports: none - IMMUNIZATION STATUS Childhood Immunizations: See Nurse Assessment Flu Vaccine: See Nurse Assessment - FAMILY HISTORY Family History: reviewed, not pertinent - SOCIAL HISTORY Smoking: cigarettes, greater than 1 pack/day Provider spent 3-5 mins advising pt. on dangers of tobacco.: Discussed manners to quit use, and f/u contacts for add'l counseling. Substance Use: denies Alcohol Use Frequency: never Living Situation: family Physical Exam-General - PHYSICAL EXAM-ADULT Initial Vital Signs Reviewed: Yes - CONSTITUTIONAL General Appearance: alert, mild distress, thin - EYES Eyes: PERRL/EOMI, pink conjunctivae - HEAD, EARS, NOSE, MOUTH & THROAT HENMT: moist mucous membranes - NECK Neck: full range of motion, supple, normal inspection - RESPIRATORY Respiratory: chest non-tender, lungs clear, normal breath sounds - CARDIOVASCULAR Cardiovascular: normal peripheral pulses, tachycardia (138) - GASTROINTESTINAL (ABDOMEN) Abdominal Exam: normal bowel sounds, non tender, soft - LYMPHATIC Lymphatic: no adenopathy - MUSCULOSKELETAL Back Exam: normal inspection, no CVA tenderness, no vertebral tenderness Extremity: normal range of motion, non-tender, normal gait, normal inspection, no pedal edema, no calf tenderness, normal capillary refill, pelvis stable - SKIN Integumentary: normal color, normal turgor, warm/dry - NEUROLOGIC Neurologic: grossly normal - PSYCHIATRIC Psych/Mental Status: normal mood/affect, normal thought content, normal thought process, oriented x 3 Progress - PLAN OF CARE/RESULTS Progress/Plan/Lab Results: Vital Signs - 8 hr 01/04/19 10:17 Temperature 98 F Pulse Rate 138 H Respiratory Rate 16 Blood Pressure 162/95 O2 Sat by Pulse Oximetry 99 Laboratory Results - last 24 hr 01/04/19 01/04/19 01/04/19 10:11 10:11 10:29 WBC 8.89 RBC 5.42 H Hgb 16.7 H Hct 50.6 H MCV 93.4 MCH 30.8 MCHC 33.0 RDW Std Deviation 12.9 Plt Count 546 H MPV 8.9 Immature Gran % (Auto) 0.3 Neut % (Auto) 73.6 Lymph % (Auto) 22.4 [place] % (Auto) 2.6 Eos % (Auto) 0.4 Baso % (Auto) 0.7 Immature Gran # (Auto) 0.03 Neut # (Auto) 6.54 H Lymph # (Auto) 1.99 [place] # (Auto) 0.23 Eos # (Auto) 0.04 Baso # (Auto) 0.06 POC Glucose 399 H Acetone Level MODERATE A Orders Category Date Time Status ED: Urine Bedside ORDERED Care 01/04/19 09:53 Active Nursing- Obtain EKG ONCE Care 01/04/19 09:53 Active cxr [CHEST-1 VIEW] [RAD] Stat Exams 01/04/19 09:57 Ordered ABG [RESP] Routine Lab 01/04/19 09:53 Ordered ACETONE SERUM [CHEM] Stat Lab 01/04/19 10:11 Completed AMYLASE [CHEM] Stat Lab 01/04/19 10:11 Received CBC WITH ELECTRONIC DIFF [HEME] Stat Lab 01/04/19 10:11 Completed COMPREHENSIVE METABOLIC PANEL [CHEM] Stat Lab 01/04/19 10:11 Received LIPASE [CHEM] Stat Lab 01/04/19 10:11 Received MAGNESIUM [CHEM] Stat Lab 01/04/19 10:11 Received TROPONIN T Stat Lab 01/04/19 10:01 Received URINALYSIS W/POSS RFLX CULT [URINALYSIS] Stat Lab 01/04/19 09:53 Uncollected phos [PHOSPHORUS] [CHEM] Stat Lab 01/04/19 10:11 Received 0.9% Sodium Chloride Inj [Ns] 1,000 ml Med 01/04/19 09:57 Active IV 999 mls/hr Insulin Human Regular [Humulin R] Med 01/04/19 09:57 Discontinued 10 unit IV NOW ONE Ondansetron [Zofran] Med 01/04/19 09:58 Discontinued 4 mg IV NOW ONE EKG [EKG] Stat Ther 01/04/19 09:53 Ordered Result Diagrams: 01/04/19 10:11 01/04/19 10:11 - REASSESSMENT Reassessment #1 Time Reassessed: 10:22 (BGL is improving pt still does not feel good) Status: improving Reassessment #2 Time Reassessed: 11:07 ( at beside) Status: unchanged - EKG 1 Time of EKG reading by physician:: 11:07 EKG Read and Signed by:: Luan Sam EKG Interpretation (*Must complete 3 of following elements*): Abnormal Rate: 134 Rhythm: sinus tachycardia with short MA [place]: normal QRS: normal MA Interval: normal ST Wave: normal Comments: T wave abnormality, consider inferior ischemia - XRAY 1 XRAY: Bilateral XRAY Study: Chest Impression: See EMR Report (waiting on results) - CONSULTS/PCP/HOSPITALIST Notification #1 *Consult/PCP/Hospitalist*: hospitalist dr huber Time Discussed: 11:09 Consult Disposition: Admit Departure - Departure Date of Disposition Decision: 01/04/19 Time of Disposition Decision: 11:09 DIAGNOSIS: Tobacco abuse disorder DKA (diabetic ketoacidoses) Qualifiers: Diabetes mellitus type: type 1 Diabetes mellitus complication detail: without coma Qualified Code(s): E10.10 - Type 1 diabetes mellitus with ketoacidosis without coma Disposition: ADMITTED INPATIENT 09 Certified Medical Emergency: Emergent Condition: Fair Referrals and Follow-Ups: Mikie Bui Jr, MD [Primary Care Provider] - - Critical Care Note This patient required my direct & personal management of CC.: Yes Total Time (mins): 38 Critical Care Statement: This patient required my direct personal management to treat or rule out processes, the absence of which, could potentiallly result in sudden, clinically significant life or limb threatening deterioration. Attestation - Physician/ ALFREDO Attestation Patient care was provided by Advanced Practice Provider:: No The physician spent face to face time with patient:: Yes Advanced Practice Provider documentation review:: Supervising physician onsite and consulted in the evaluation and care of this patient. The physician did have a face to face encounter with the patient. This chart was documented by the indicated scribe, (Farideh Calderon Scribe) and accurately reflects the services I performed and decisions made by me, Luan Sam MD, as attested by the provider's signature.
--- NOTE | 2019-01-04 11:49 | Diag Imaging Result Doc PS360 ---
CHEST-1 VIEW - 01/04/2019 INDICATION: dka COMPARISON: 05/25/2018 FINDINGS: The lungs are normally expanded and clear. Heart size and mediastinal contours are normal. No pneumothorax or pleural effusion. IMPRESSION: Negative exam. Electronically signed by Mikie Villarreal 01/04/2019 11:46 AM
[2019-01-04] MEDS ORDERED: HUMALOG SUBQ ONE (12:54)
[2019-01-04] MEDS ORDERED: ZOFRAN IV PRN (12:54)
[2019-01-04] MEDS ORDERED: NS 500 ML IV ONE (13:27)
[2019-01-04] MEDS: D5 NS 1,000 ML IV SCH ×2 (13:39→22:09)
[2019-01-04] MEDS: TYLENOL PO PRN (13:42)
--- NOTE | 2019-01-04 13:47 | HISTORY AND PHYSICAL ---
PRIMARY CARE PHYSICIAN: Dr. Mikie Bui. CHIEF COMPLAINT: Elevated blood sugar greater than 500. Unable to stabilize with insulin. Also, she had nausea but no vomiting. HISTORY OF PRESENTING ILLNESS: This is a 28-year-old female who presents to [facility] ER with complaints of increased blood sugar at home of greater than 500, was unable to stabilize it with her insulin. She also had some nausea but no vomiting. When she arrived, she had a blood glucose of 529, an acetone level of moderate. Her sodium was 132, BUN of 28 and creatinine 1.2. Her anion gap was 4, so she will be admitted to the intensive care unit for further evaluation and treatment. PAST MEDICAL HISTORY: Diabetes type 1, frequent DKA's, anxiety and depression. PAST SURGICAL HISTORY: None. FAMILY HISTORY: Reviewed and noncontributory. SOCIAL HISTORY: She currently lives with family. Denies any tobacco, alcohol or illicit drug use. Smokes a half a pack of cigarettes a day, and has done so for the past 3 to 4 years. Denies any alcohol or illicit drug use. ALLERGIES: Sulfa. HOME MEDICATIONS: Current list will need to be obtained, reviewed, reconciled and restarted as appropriate. We will place an order for nursing to update and confirm home medications. LABORATORY DATA: White blood cell count of 8.89, hemoglobin 16.7, hematocrit 50.6, and platelets 546,000. ABG with a pH of 7.28, pCO2 of 23, PO2 110, and bicarb 14.3, and this was on room air. Sodium 132, potassium 4.5, chloride 81, CO2 11, anion gap 40, BUN of 28, creatinine 1.2, glucose 529, magnesium 2.2, amylase 22, lipase 16, and acetone level was moderate. REVIEW OF SYSTEMS: She denied any fever, chills, blurred vision, dizziness, chest pain, coughing, or shortness of breath. She denied any abdominal pain, constipation, diarrhea, burning or hurting with urination. PHYSICAL EXAMINATION: On arrival, she had a temperature of 98 degrees, pulse 138, respirations 16, blood pressure 162/95, and saturating 99% on room air. GENERAL: This is a 28-year-old female who is lying in the bed. HEENT: Normocephalic, atraumatic. Normal ENT inspection. Oropharynx and nares are clear. Pupils are equal, round, and reactive to light and accommodation. Extraocular movements are intact. NECK: Normal inspection. Normal range of motion. LUNGS: Clear to auscultation bilaterally with equal lung expansion and chest wall movement. HEART: Regular rate and rhythm. No murmurs, rubs, or gallops. ABDOMEN: Soft, nontender, and nondistended. Bowel sounds are present x4 quadrants. MUSCULOSKELETAL: She has 5/5 strength x4 extremities. NEUROLOGICAL: The cranial nerves 2-12 appear grossly intact. ASSESSMENT: 1. Diabetes type 1 with diabetic ketoacidosis. 2. Tachycardia secondary to #1. 3. Mild acute kidney injury secondary to #1. PLAN: She will be admitted to the intensive care unit, and placed on the DKA protocol. Insulin drip per the protocol with algorithm 1. Placed on a diabetic diet. Update and confirm home medications as previously identified. Further orders after seen by attending. Dictated by DAPHNE Torrez for Reid Allen MD cc: DAPHNE Torrez MD
[2019-01-04 15:22] LABS: AGAP 22; BUN 23 mg/dL (8-22); CHLORIDE 92 mmol/L (98-107); COSMO 273; CREATININE 0.8 mg/dL (0.5-0.9); ESTIMATED GFR > 60; GLUCOSE 79 mg/dL (70-104); MAGNESIUM 1.8 mg/dL (1.5-2.7); POTASSIUM 4.1 mmol/L (3.5-5.1); SODIUM 135 mmol/L (136-145); TCO2 21 mmol/L (25-35)
[2019-01-04 16:33] LABS: AGAP 15; BUN 21 mg/dL (8-22); CALCIUM 8.4 mg/dL (8.8-10.2); CHLORIDE 95 mmol/L (98-107); COSMO 272; CREATININE 0.8 mg/dL (0.5-0.9); ESTIMATED GFR > 60; GLUCOSE 76 mg/dL (70-104); MAGNESIUM 1.7 mg/dL (1.5-2.7); POTASSIUM 4.1 mmol/L (3.5-5.1); SODIUM 135 mmol/L (136-145); TCO2 25 mmol/L (25-35)
[2019-01-04 17:21] LABS: URINE SOURCE CATH
[2019-01-04 17:30] LABS: BILIRUBIN URINE SMALL (NEGATIVE); BLOOD URINE NEGATIVE (NEGATIVE); COLOR YELLOW; GLUCOSE URINE >1000 mg/dL (NEGATIVE); KETONE URINE 80 mg/dL (NEGATIVE); LEUKOCYTES URINE NEGATIVE (NEGATIVE); NITRITE URINE NEGATIVE (NEGATIVE); PH URINE 5.5; PROTEIN URINE TRACE mg/dL (NEGATIVE); SP GRAVITY URINE 1.022; TURBIDITY URINE CLEAR (CLEAR); UROBILINOGEN URINE 3 mg/dL (NORMAL)
[2019-01-04 17:31] LABS: UR EPITHELIAL CELLS <10 /HPF (<10); URINE BACTERIA NEGATIVE /HPF; URINE RBC <10 /HPF (<10); URINE WBC <10 /HPF (<10)
[2019-01-04 17:33] LABS: UR AMPHETAMINES QUAL PRESUMPTIVE POSITIVE (NONE DETECT); UR BARBITUATES QUAL NONE DETECTED (NONE DETECT); UR BENZODIAZEPIN QUAL NONE DETECTED (NONE DETECT); UR OPIATES QUAL NONE DETECTED (NONE DETECT)
[2019-01-04 17:34] LABS: UR CANNABINOIDS QUAL NONE DETECTED (NONE DETECT); UR COCAINE QUAL NONE DETECTED (NONE DETECT); UR METHADONE QUAL NONE DETECTED (NONE DETECT); UR OXYCODONE QUAL NONE DETECTED (NONE DETECT); UR PCP QUAL NONE DETECTED (NONE DETECT)
[2019-01-04] MEDS: HUMALOG SUBQ SCH ×2 (20:13→22:10)
[2019-01-05] MEDS: D5 NS 1,000 ML IV SCH (05:59)
[2019-01-05] MEDS: HUMALOG SUBQ SCH ×6 (06:14→23:21)
[2019-01-05 06:44] LABS: BASO# 0.04 X1000 (0.0-0.2); BASO% 0.7 % (0.0-0.8); EOS% 1.9 % (0.0-10.0); HEMATOCRIT 38.8 % (37.0-47.0); HEMOGLOBIN 13.1 g/dL (12.0-16.0); IMM GRAN# 0.02 X1000 (0.0-0.04); IMM GRAN% 0.4 % (0.0-0.5); LYMPH# 2.74 X1000 (1.2-3.4); LYMPH% 50.7 % (20.5-51.1); MCH 31.3 PG (27-31); MCHC 33.8 g/dL (33-37); MCV 92.8 FL (81-99); MONO# 0.47 X1000 (0.11-0.59); MONO% 8.7 % (1.7-9.3); NEUT# 2.03 X1000 (1.4-6.5); NEUT% 37.6 % (42.2-75.2); PLT 384 X1000 (130-400); RBC 4.18 XMIL (4.2-5.4); RDW 12.6 % (11.5-14.5)
[2019-01-05 06:58] LABS: AGAP 13; BUN 11 mg/dL (8-22); CHLORIDE 98 mmol/L (98-107); COSMO 284; CREATININE 0.6 mg/dL (0.5-0.9); ESTIMATED GFR > 60; GLUCOSE 252 mg/dL (70-104); POTASSIUM 4.1 mmol/L (3.5-5.1); SODIUM 138 mmol/L (136-145); TCO2 27 mmol/L (25-35)
[2019-01-05] MEDS: NS 1,000 ML IV SCH ×2 (08:55→20:45)
--- NOTE | 2019-01-05 09:10 | PROGRESS NOTE ---
DATE: 01/05/2019 SUBJECTIVE: She does feel better. She is less drowsy. She is hungry. She ate most of her breakfast and said she is still hungry. OBJECTIVE: Temperature 99.5 degrees, pulse 95, respirations 14, and blood pressure 124/82. Pupils are equal and round.Lungs: Clear in all lung pimentel. Cardiovascular: Regular rhythm and rate without murmur or S3. Abdomen: Soft. Skin: Warm and dry. Urine output is 2600 mL. ASSESSMENT AND PLAN: Diabetes mellitus type 1 with ketoacidosis and volume depletion with dehydration. Doing better with fluids. She is on sliding scale got her on p.o. intake so we will continue. Her blood sugars have been 413 and 186, 252 and 358. I am going to stop her IV fluids from D5 normal saline, change her normal saline at 85 mL an hour. Her home regimen for insulin was insulin glargine. She is taking hemoglobin 10 to 15 units subcu t.i.d. We may try and put her on her 70/30 and keep her base at 40 units, and give her 70/30 twice a day. cc: Reid Allen MD
[2019-01-05] MEDS: NOVOLOG MIX 70/30 SUBQ SCH ×2 (09:17→20:45)
[2019-01-05] MEDS ORDERED: INSULIN PEN NEEDLES ONE (09:19)
[2019-01-05] MEDS: TYLENOL PO PRN (20:45)
[2019-01-06] MEDS: HUMALOG SUBQ SCH ×5 (04:58→20:53)
[2019-01-06 05:41] LABS: AGAP 11; BUN 11 mg/dL (8-22); CALCIUM 7.7 mg/dL (8.8-10.2); CHLORIDE 102 mmol/L (98-107); COSMO 281; CREATININE 0.5 mg/dL (0.5-0.9); ESTIMATED GFR > 60; GLUCOSE 172 mg/dL (70-104); MAGNESIUM 1.8 mg/dL (1.5-2.7); POTASSIUM 3.8 mmol/L (3.5-5.1); SODIUM 139 mmol/L (136-145); TCO2 26 mmol/L (25-35)
[2019-01-06] MEDS: NS 1,000 ML IV SCH (07:59)
[2019-01-06] MEDS: NOVOLOG MIX 70/30 SUBQ SCH ×2 (08:00→20:56)
--- NOTE | 2019-01-06 09:31 | PROGRESS NOTE ---
DATE: 01/06/2019 Ms. Hu is feeling better. No nausea. OBJECTIVE: Vital Signs: Temp is 98.9 degrees, pulse 80, respirations 14, blood pressure 110/79. HEENT: Pupils are equal and round. Lungs: Are clear in all lung pimentel. Cardiovascular: Regular rhythm and rate without murmur or S3. Abdomen: Is soft. Skin: Is warm and dry. Urine output is 4800 mL. Blood sugar 309, 179, 179. ASSESSMENT AND PLAN: Diabetes mellitus type 1 with ketoacidosis, volume depletion, doing much better. I will turn her IV fluids off. She is drinking and eating well. Acidosis has resolved. I think she can move to the floor. We will take the Viveros catheter out. Bicarb was 26. Blood sugars 199, 172, 176, 179. Let her ambulate a little bit. Hopefully, she can go home tomorrow morning. cc: Reid Allen MD
[2019-01-06] MEDS: NICODERM PATCH TD SCH (11:32)
[2019-01-06] MEDS: TYLENOL PO PRN (18:53)
[2019-01-07] MEDS: HUMALOG SUBQ SCH ×7 (00:18→22:11)
[2019-01-07 07:08] LABS: AGAP 12; BUN 20 mg/dL (8-22); CALCIUM 8.3 mg/dL (8.8-10.2); CHLORIDE 97 mmol/L (98-107); COSMO 283; CREATININE 0.9 mg/dL (0.5-0.9); ESTIMATED GFR > 60; GLUCOSE 150 mg/dL (70-104); POTASSIUM 3.5 mmol/L (3.5-5.1); SODIUM 139 mmol/L (136-145); TCO2 30 mmol/L (25-35)
[2019-01-07] MEDS: NICODERM PATCH TD SCH (08:19)
[2019-01-07] MEDS: NOVOLOG MIX 70/30 SUBQ SCH ×2 (08:19→22:12)
--- NOTE | 2019-01-07 13:19 | PROGRESS NOTE ---
DATE: 01/07/2019 SUBJECTIVE: Ms. Hu does feel a little better. She is still pretty weak and tired. She has a hematoma on her right arm and some ribs that are bruised, and so she is sore. OBJECTIVE: She remains afebrile, pulse 70, respirations 16, blood pressure 105/70. Pupils are equal. Lungs are clear in all lung pimentel. Cardiovascular Examination: Regular rhythm and rate without murmur or S3. Abdomen is soft. Skin is warm and dry. ASSESSMENT AND PLAN: 1. Diabetes mellitus type 1. Presented with ketoacidosis. Her acidosis has resolved. She is eating. We will keep her here another 24 hours. Hopefully, she can go home tomorrow. 2. Hematoma on her right forearm and some bruised ribs. 3. Continue current insulin, getting 70/30 with 12 units twice a day. She is on a nicotine patch and on a Humalog sliding scale. Her electrolytes look good. Last several blood sugars 274, 150, 209, and 232. cc: Reid Allen MD
[2019-01-08] MEDS: HUMALOG SUBQ SCH ×4 (03:31→09:39)
[2019-01-08 07:37] VITALS: BP 109/72
[2019-01-08] MEDS: NOVOLOG MIX 70/30 SUBQ SCH (08:36)
[2019-01-08] MEDS: NICODERM PATCH TD SCH (08:36)
--- NOTE | 2019-01-08 09:45 | DISCHARGE SUMMARY ---
ADMISSION DATE: 01/04/2019 DISCHARGE DATE: 01/08/2019 She is a patient of Dr. Mikie Bui. She came in with blood sugar greater than 500, acidosis, positive ketones consistent with diabetic ketoacidosis. Given IV fluids. Followed diabetic protocol with insulin. She showed steady improvement. She was pretty lethargic for the first 48 hours, with nausea, but she was able to eat, and we took her off IV fluids. Her acidosis resolved, and felt she could go home. She wants to go to rehab and try and go into a drug rehab at [place]. I will give her a NicoDerm patch. She is on Novolin 70/30 twice a day, and that is really all of her medications for discharge. She did have a little hematoma on her right forearm and some bruising on her ribs, so plan to discharge her on 01/08/2019. cc: Reid Allen MD
== END 2019-01-08 10:39 | disposition home or self-care (01) | DRG 638 ==
LOC: SUPCPDRO → ED 09:49 → ICU 11:30 → 3N 01-06 15:49
PROVIDERS: ATTEND Emergency Medicine

== ENCOUNTER 2019-03-18 07:24 | Inpatient (IN) ==
[2019-03-18] MEDS ORDERED: HUMULIN R IV ONE (07:29)
[2019-03-18] MEDS ORDERED: D50W SYRINGE IV PRN ×2 (07:29→10:30)
[2019-03-18] MEDS ORDERED: ZOFRAN IV ONE (07:29)
[2019-03-18] MEDS ORDERED: NS 1,000 ML IV SCH ×3 (07:30→10:30)
[2019-03-18] MEDS ORDERED: HUMULIN R (PARKWAY) ONE (07:33)
[2019-03-18 07:55] LABS: HEMOGLOBIN 16.1 g/dL (12.0-16.0); MCH 29.2 PG (27-31); MCHC 32.2 g/dL (33-37); MCV 90.7 FL (81-99); MPV 9.7 FL (7.4-10.4); RBC 5.51 XMIL (4.2-5.4); RDW 13.3 % (11.5-14.5); WBC 13.7 X1000 (4.8-10.8)
[2019-03-18 08:02] LABS: ALBUMIN 4.6 g/dL (3.5-5.0); CALCIUM 9.7 mg/dL (8.8-10.2); CREATININE 1.2 mg/dL (0.5-0.9); MAGNESIUM 1.7 mg/dL (1.5-2.7); PHOSPHORUS 6.3 mg/dL (2.7-4.5); POTASSIUM 5.7 mmol/L (3.5-5.1); TOTAL BILIRUBIN 0.5 mg/dL (0.20-1.00)
[2019-03-18 08:05] LABS: BE -23.2 mmoll (-3.0-3.0); BLOOD TYPE ARTERIAL; HCO3-(ACT) 6.8 mmoll (20.0-26.0); METHB 0.8 % (0.0-1.5); O2(CT) 21.6 mL/dL (15.0-23.0); O2HB 95.9 % (95.0-99.0); PO2(98.6) 131 mmHg (60-100); SAMPLE BLOOD; SAO2 98.1 % (95.0-100.0); THB 15.9 g/dL (11.5-17.4)
--- NOTE | 2019-03-18 08:07 | PROVIDER DOCUMENTATION ---
HPI-Abdominal Pain/GI Problem - General Chief Complaint: DKA ALERT Stated Complaint: chest pain Time Seen by Provider: 03/18/19 07:51 Source: patient Allergies/Adverse Reactions: Patient Allergies Allergy/AdvReac Type Severity Reaction Status Date / Time No Known Allergies Allergy Verified 03/18/19 07:36 Home Medications: Home Medication List Medication Instructions Recorded Confirmed Last Taken Type Insulin Glargine,Hum.rec.anlog 40 unit SQ HS 03/18/19 03/18/19 03/17/19 History [Lantus Solostar] - History of Present Illness-ABD Nature of Presenting Problems: type 1 diabetic with vomiting begining last night.also 4-5 diarrhea black in color she says taking 10 units prior to meals and 40 lantus. says she leaves it off if sugars are good. Abdominal Pain Onset Location: reports: generalized abdomen Pain Radiation: reports: no radiation Quality of Pain: reports: aching Severity in ED: reports: moderate Onset/Duration: reports: last night Timing: reports: still present Activities at Onset: reports: sleep Exposure to sick contacts?: No Modifying Factors: improves with: nothing Associated Symptoms: reports: fatigue, loss of appetite, nausea, vomiting, weakness Last BM: last night Dark Stools Present?: reports: black Rectal Bleeding: reports: none # of Diarrhea Episodes: 4 Rectal Pain: reports: none # of Vomiting Episodes: 6 Emesis Description: reports: none Bruising or Bleeding Gums?: No Similar Symptoms Previously?: Yes Recently seen or treated by another doctor?: No Review of Systems - Adult - REVIEW OF SYSTEMS - ADULT Constitutional: reports: fatique Eyes: reports: no symptoms reported Ears, Nose, Mouth & Throat: reports: no symptoms reported Cardiovascular: reports: palpitations Respiratory: reports: cough. denies: wheezing Gastrointestinal: reports: abdominal pain, diarrhea, nausea, vomiting Genitourinary: reports: no symptoms reported Musculoskeletal: reports: no symptoms reported Integumentary: reports: no symptoms reported Neurological: reports: no symptoms reported Psychiatric: reports: no symptoms reported Endocrine: reports: no symptoms reported Hematologic/Lymphatic: reports: no symptoms reported Allergic/Immunologic: reports: no symptoms reported Past History - Adult - PAST MEDICAL HISTORY-ADULT Review of Records: reports: Nursing Assessment Review, Medications Reviewed, Social history reviewed & non-contributory. Major Childhood Illnesses: reports: denies history Cardiovascular: reports: CHF Respiratory: reports: denies history Gastrointestinal: reports: denies history Obstetrical/Gynecological: reports: denies history Genitourinary: reports: denies history Musculoskeletal: reports: denies history Neurological: reports: denies history Psychiatric: reports: denies history Endocrine/Immune: reports: Diabetes Diabetes Type: Type 1 Diabetes controlled by:: Insulin Dependent - PRIOR SURGERIES/PROCEDURES Surgical/Procedure History: reports: BTL, - SOCIAL HISTORY Smoking: cigarettes Substance Use: none/never Alcohol Use Frequency: never Physical Exam-General - PHYSICAL EXAM-ADULT Initial Vital Signs Reviewed: Yes - CONSTITUTIONAL General Appearance: moderate distress - EYES Eyes: PERRL/EOMI, pink conjunctivae - HEAD, EARS, NOSE, MOUTH & THROAT HENMT: negative: moist mucous membranes - NECK Neck: supple - RESPIRATORY Respiratory: lungs clear, increased rate - CARDIOVASCULAR Cardiovascular: tachycardia - GASTROINTESTINAL (ABDOMEN) Abdominal Exam: non tender, soft, no organomegaly - LYMPHATIC Lymphatic: no adenopathy - MUSCULOSKELETAL Back Exam: normal inspection Extremity: normal range of motion, non-tender, normal gait - SKIN Integumentary: normal color, normal turgor - 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, grossly normal - PSYCHIATRIC Psych/Mental Status: oriented x 3 Progress - PLAN OF CARE/RESULTS Progress/Plan/Lab Results: Vital Signs - 8 hr 03/18/19 07:21 Temperature 98.0 F Pulse Rate 140 H Respiratory Rate 21 Blood Pressure 132/100 O2 Sat by Pulse Oximetry 99 Laboratory Results - last 24 hr 03/18/19 03/18/19 03/18/19 07:25 07:25 07:25 WBC 13.70 H RBC 5.51 H Hgb 16.1 H Hct 50.0 H MCV 90.7 MCH 29.2 MCHC 32.2 L RDW Std Deviation 13.3 Plt Count 498 H MPV 9.7 Sodium 130 L Potassium 5.7 H Chloride 86 L Carbon Dioxide 8 L Anion Gap 36 BUN 17 Creatinine 1.2 H Estimated GFR/1.73 m2 53 BUN/Creatinine Ratio 14 Calculated Osmolality 297 Calcium 9.7 Phosphorus Magnesium 1.7 Total Bilirubin 0.50 AST 42 H ALT 32 Alkaline Phosphatase 190 H Troponin T < 0.010 Total Protein 9.0 H Albumin 4.6 Globulin 4.0 Albumin/Globulin Ratio 1.0 Lipase 7 L Serum , Qual Acetone Level 03/18/19 03/18/19 03/18/19 07:25 07:25 07:25 WBC RBC Hgb Hct MCV MCH MCHC RDW Std Deviation Plt Count MPV Sodium Potassium Chloride Carbon Dioxide Anion Gap BUN Creatinine Estimated GFR/1.73 m2 BUN/Creatinine Ratio Calculated Osmolality Calcium Phosphorus 6.5 H Magnesium Total Bilirubin AST ALT Alkaline Phosphatase Troponin T Total Protein Albumin Globulin Albumin/Globulin Ratio Lipase Serum , Qual NEGATIVE Acetone Level LARGE A Orders Category Date Time Status Cardiac Monitoring DIRECTED Care 03/18/19 07:29 Active Daily Weights 0500 Care 03/18/19 07:29 Active FSBS/Accucheck Result Q1H Care 03/18/19 07:29 Active If symptomatic Hypoglycemia As Ordered Care 03/18/19 07:29 Active Intake and Output-Strict ORDERED Care 03/18/19 07:29 Active Notify physician if: ORDERED Care 03/18/19 07:29 Active Vital Signs Order ROUTINE Care 03/18/19 07:29 Active CHEST-PORTABLE [RAD] Stat Exams 03/18/19 07:29 Ordered ABG [RESP] Routine Lab 03/18/19 07:30 Ordered ACETONE SERUM [CHEM] Stat Lab 03/18/19 07:25 Completed AMYLASE [CHEM] Stat Lab 03/18/19 07:25 Received BASIC METABOLIC PANEL [CHEM] Q4H Lab 03/18/19 11:30 Ordered BASIC METABOLIC PANEL [CHEM] Q4H Lab 03/18/19 15:30 Ordered BASIC METABOLIC PANEL [CHEM] Q4H Lab 03/18/19 19:30 Ordered BASIC METABOLIC PANEL [CHEM] Q4H Lab 03/18/19 23:30 Ordered BLOOD CULTURE [BLDCUL] Stat Lab 03/18/19 07:38 Ordered BNP [PRO B-NATRIURETIC PEPTIDE] Stat Lab 03/18/19 07:25 Received CBC WITH NO DIFF [HEME] Stat Lab 03/18/19 07:25 Completed CK PROFILE [SP CHEM] Stat Lab 03/18/19 07:25 Received COMPREHENSIVE METABOLIC PANEL [CHEM] Stat Lab 03/18/19 07:25 Results LACTATE, PLASMA [CHEM] Stat Lab 03/18/19 07:38 Ordered LIPASE [CHEM] Stat Lab 03/18/19 07:25 Results MAGNESIUM [CHEM] Lab 03/18/19 11:30 Uncollected MAGNESIUM [CHEM] Lab 03/18/19 15:30 Uncollected MAGNESIUM [CHEM] Lab 03/18/19 19:30 Uncollected MAGNESIUM [CHEM] Lab 03/18/19 23:30 Uncollected MAGNESIUM [CHEM] Stat Lab 03/18/19 07:25 Results PHOSPHORUS [CHEM] Q4H Lab 03/18/19 07:25 Completed PHOSPHORUS [CHEM] Q4H Lab 03/18/19 11:30 Ordered PHOSPHORUS [CHEM] Q4H Lab 03/18/19 15:30 Ordered PHOSPHORUS [CHEM] Q4H Lab 03/18/19 19:30 Ordered PHOSPHORUS [CHEM] Q4H Lab 03/18/19 23:30 Ordered PHOSPHORUS [CHEM] Stat Lab 03/18/19 07:25 Received TEST-SERUM [PREG] Stat Lab 03/18/19 07:25 Completed TROPONIN T Stat Lab 03/18/19 07:[address] W/POSS RFLX CULT [URINALYSIS] Stat Lab 03/18/19 07:30 Uncollected URINE DRUG SCREEN PL Stat Lab 03/18/19 07:29 Uncollected 0.9% Sodium Chloride Inj [Ns] 1,000 ml Med 03/18/19 07:30 Active IV 1,000 mls/hr Dextrose 50% Syringe [D50w Syringe] Med 03/18/19 07:29 Active See Protocol IV DIRECTED PRN PRN Insulin Human Regular (Dawn [Humulin R (Dawn)] Med 03/18/19 07:33 Discontinued 10 units .ROUTE .STK-MED ONE Insulin Human Regular [Humulin R] Med 03/18/19 07:29 Discontinued 10 unit IV ONCE ONE Ondansetron [Zofran] Med 03/18/19 07:29 Discontinued 4 mg IV NOW ONE EKG [EKG] Stat Ther 03/18/19 07:29 Ordered Result Diagrams: 03/18/19 07:25 03/18/19 07:25 - EKG 1 Time of EKG reading by physician:: 08:12 EKG Read and Signed by:: William Johnson EKG Interpretation (*Must complete 3 of following elements*): Abnormal Rate: 137 Rhythm: sinus tachycardia [place]: normal QRS: normal [place] Interval: normal ST Wave: normal Departure - Departure Date of Disposition Decision: 03/18/19 Time of Disposition Decision: 08:14 DIAGNOSIS: DKA (diabetic ketoacidoses) Disposition: ADMITTED INPATIENT 09 Certified Medical Emergency: Emergent Condition: Stable - Critical Care Note This patient required my direct & personal management of CC.: Yes Total Time (mins): 45 Critical Care Statement: This patient required my direct personal management to treat or rule out processes, the absence of which, could potentiallly result in sudden, clinically significant life or limb threatening deterioration. Attestation - Physician/ ALFREDO Attestation Patient care was provided by Advanced Practice Provider:: No The physician spent face to face time with patient:: Yes Advanced Practice Provider documentation review:: Supervising physician onsite and consulted in the evaluation and care of this patient. The physician did have a face to face encounter with the patient.
[2019-03-18 08:19] LABS: CK INDEX 0.9 (0.0-2.5); CK-MB 4.57 ng/mL (0.0-5.0)
[2019-03-18] MEDS ORDERED: MAGNESIUM SULFATE 2 GM/S.W.I. 2 GM/50 ML IVPB IV PRN (08:24)
[2019-03-18] MEDS: NS 1,000 ML IV SCH ×3 (08:30→10:41)
[2019-03-18 08:37] LABS: OCCULT BLOOD 1 NEGATIVE (NEGATIVE)
[2019-03-18 08:39] LABS: BILIRUBIN URINE NEGATIVE (NEGATIVE); BLOOD URINE TRACE (NEGATIVE); CLARITY CLEAR (CLEAR); COLOR YELLOW; KETONE URINE 3+(Large) mg/dL (NEGATIVE); LEUKOCYTES URINE NEGATIVE (NEGATIVE); NITRITE URINE NEGATIVE (NEGATIVE); PROTEIN URINE 1+(30 mg/dL) mg/dL (NEGATIVE); UROBILINOGEN URINE NORMAL
[2019-03-18 08:40] LABS: URINE BACTERIA 2+ /HFP; URINE CAST NONE SEEN /LPF; URINE CRYSTAL NONE SEEN /HPF; URINE EPITHELIAL CELLS <10 /HPF (<10); URINE RBC <10 /HPF (<10); URINE SOURCE CATH; URINE WBC <10 /HPF (<10); URINE YEAST NONE SEEN /HPF
[2019-03-18 08:41] LABS: ALLEN TEST YES; MODALITY ROOM AIR
[2019-03-18 08:43] LABS: pH(98.6) 7.08 (7.35-7.45)
[2019-03-18 08:44] LABS: PCO2(98.6) 16 mmHg (35-45)
[2019-03-18 08:46] LABS: UR AMPHETAMINES QUAL PRESUMPTIVE POSITIVE (NONE DETECT); UR BARBITUATES QUAL NONE DETECTED (NONE DETECT); UR BENZODIAZEPIN QUAL NONE DETECTED (NONE DETECT); UR CANNABINOIDS QUAL NONE DETECTED (NONE DETECT); UR COCAINE QUAL NONE DETECTED (NONE DETECT); UR METHADONE QUAL NONE DETECTED (NONE DETECT); UR METHAMPHETAMINE QUAL NONE DETECTED (NONE DETECT); UR OPIATES QUAL NONE DETECTED (NONE DETECT); UR OXYCODONE QUAL NONE DETECTED (NONE DETECT); UR PCP QUAL NONE DETECTED (NONE DETECT); UR PROPOXYPHENE QUAL NONE DETECTED (NONE DETECT); UR TCA QUAL NONE DETECTED (NONE DETECT)
[2019-03-18 09:00] LABS: INR 1.04; PROTIME 14.1 Seconds (11.0-16.0); PTT 24.6 Seconds (22.3-41.8)
[2019-03-18] MEDS ORDERED: HUMULIN R (PARKWAY) 100 UNITS in NS 100 ML SUBQ SCH (09:00)
--- NOTE | 2019-03-18 09:01 | Diag Imaging Result Doc PS360 ---
EXAM: CHEST-PORTABLE INDICATION: dka TECHNIQUE: One view COMPARISON: 01/04/2019 FINDINGS: The lungs are grossly clear. There is no discrete pleural fluid collection or pneumothorax. The cardiomediastinal silhouette and central vasculature are grossly unremarkable. IMPRESSION: No evidence of acute pathology by plain radiograph. Electronically signed by Ga Gallagher 03/18/2019 8:59 AM
[2019-03-18] MEDS ORDERED: HUMULIN R 100 UNIT in NS 100 ML IV SCH (10:30)
[2019-03-18] MEDS ORDERED: SODIUM BICARBONATE 8.4% 100 MEQ in STERILE WATER INJ. 500 ML IV PRN (10:30)
[2019-03-18] MEDS ORDERED: ZOFRAN IV PRN (10:30)
[2019-03-18] MEDS ORDERED: SODIUM PHOSPHATE 30 MMOL in D5W 250 ML IV PRN (10:30)
[2019-03-18] MEDS ORDERED: TYLENOL PO PRN (10:30)
[2019-03-18] MEDS ORDERED: POTASSIUM CHLORIDE 40 MEQ/SWI 40 MEQ/100 ML IVPB IV PRN (10:30)
[2019-03-18] MEDS ORDERED: POTASSIUM CHLORIDE 20% LIQUID PO PRN (10:30)
[2019-03-18] MEDS: D5 NS 1,000 ML IV SCH ×2 (11:41→20:26)
[2019-03-18 12:05] LABS: AGAP 22; BUN 12 mg/dL (8-22); CHLORIDE 107 mmol/L (98-107); COSMO 282; CREATININE 0.8 mg/dL (0.5-0.9); ESTIMATED GFR > 60; GLUCOSE 120 mg/dL (70-104); PHOSPHORUS 1.9 mg/dL (2.7-4.5); POTASSIUM 4.1 mmol/L (3.5-5.1); SODIUM 141 mmol/L (136-145); TCO2 12 mmol/L (25-35)
[2019-03-18] MEDS: MAGNESIUM SULFATE 2 GM/S.W.I. 2 GM/50 ML IVPB IV PRN ×2 (12:34→22:02)
[2019-03-18 14:27] LABS: BILIRUBIN URINE NEGATIVE (NEGATIVE); BLOOD URINE 3+ (NEGATIVE); CLARITY CLEAR (CLEAR); COLOR YELLOW; KETONE URINE 3+(Large) mg/dL (NEGATIVE); LEUKOCYTES URINE NEGATIVE (NEGATIVE); NITRITE URINE NEGATIVE (NEGATIVE); PROTEIN URINE 1+(30 mg/dL) mg/dL (NEGATIVE); UROBILINOGEN URINE NORMAL
[2019-03-18 14:31] LABS: URINE BACTERIA 1+ /HFP; URINE EPITHELIAL CELLS <10 /HPF (<10); URINE RBC 20-40 /HPF (<10)
[2019-03-18 14:32] LABS: URINE WBC <10 /HPF (<10)
[2019-03-18 14:33] LABS: URINE CAST NONE SEEN /LPF; URINE CRYSTAL NONE SEEN /HPF; URINE SOURCE CATH; URINE YEAST NONE SEEN /HPF
--- NOTE | 2019-03-18 15:28 | HISTORY AND PHYSICAL ---
CHIEF COMPLAINT: Elevated glucose levels, along with abdominal pain, nausea, vomiting, and diarrhea. HISTORY OF PRESENT ILLNESS: This is a 28-year-old female who frequently gets DKA. Presents to the ER with complaint of having abdominal pain associated with nausea, vomiting, and diarrhea, and elevated blood glucose levels since last night. She has already been admitted at least 4 times during this year for DKA. She states that she has been fully compliant with her insulin regimen, although she has not been seeing any one from endocrinology. She has also not been on any insulin pump despite the fact that she is getting frequent DKAs. PAST MEDICAL HISTORY: 1. Type 1 diabetes mellitus. 2. Anxiety disorder. 3. Depression. 4. Gastroparesis/gastroesophageal reflux disease. PAST SURGICAL HISTORY: None. FAMILY HISTORY: Noncontributory. SOCIAL HISTORY: The patient lives with family. She denies using any tobacco products nor does she drink any alcohol. She denies using any street drugs either. ALLERGIES: She reports to be allergic to sulfa. CURRENT HOME MEDICATIONS: 1. Lantus 40 units subcutaneously every 24 hours. 2. Lispro insulin 10 units 3 times a day with meals. REVIEW OF SYSTEMS: A full 14-point review of systems was obtained. That was pretty much the same as already has been explained in the HPI. PHYSICAL EXAMINATION: VITAL SIGNS: Temperature 98.8 degrees, pulse 120 per minute, blood pressure 116/73, respiratory rate 24 per minute, pulse oximetry 100% on room air. GENERAL: The patient is alert and oriented x3. She does not appear to be in any acute distress. HEENT: Within normal limits. NECK: Supple without any thyromegaly. LYMPHATICS: No lymphadenopathy noted in the neck region. CHEST: Chest wall is nontender. CARDIOVASCULAR SYSTEM: First and second heart sounds are audible with regular tachycardia. No murmurs are present. RESPIRATORY SYSTEM: Bilateral lung air entry is good without any rales or rhonchi. GASTROINTESTINAL SYSTEM: Abdomen is soft and nondistended. It is nontender on palpation and bowel sounds are normal on auscultation. GENITOURINARY: Deferred. NEUROLOGIC: No focal deficits are present. PSYCHIATRIC: Normal affect noted. INTEGUMENTARY: Skin is warm, dry, and without any rash. DIAGNOSTIC DATA: CBC shows WBC count of 13.70. Rest of the CBC is nondiagnostic. PT and PTT are within normal limits. ABG done on room air shows pH of 7.08, pCO2 of 16, and PO2 of 131. Chemistry showed phosphorus level of 1.9 and magnesium level of 1.4. Glucose levels were found to be 120. This BMP was done at 11:23 this morning. In comparison, on admission, her labs showed glucose levels of 730. Anion gap was found to be 36 at that time. Urinalysis shows ketones and no WBCs. It also shows 3+ glucose. Chest x-ray done at the emergency room did not show any evidence of acute pathology. ECG done at the emergency room this morning at 7:21 a.m. showed sinus tachycardia with a ventricular rate of 137 beats per minute. No acute ischemic abnormalities were noted. IMPRESSION: 1. Diabetic ketoacidosis in this 28-year-old patient with history of type 1 diabetes mellitus. 2. Abdominal pain, nausea, vomiting and diarrhea secondary to diabetic ketoacidosis. 3. Hypomagnesemia and hypophosphatemia. PLAN: The patient has been admitted to the intensive care unit and has been initiated on insulin IV drip as per protocol. Her glucose levels are already lower to normal levels. She is feeling better and has not been having any nausea, vomiting, or diarrhea anymore. Her abdominal pain has also subsided. I am, therefore, going to proceed with a full liquid diet. She will receive Protonix 40 mg orally once daily for acid reflux and would give her IV fluids for hydration. We will continue with the rest of supportive care as well. Further recommendations to be given as per hospital course. cc: Chichi Mariscal MD
[2019-03-18 15:51] LABS: BE -13.6 mmoll (-3.0-3.0); BLOOD TYPE ARTERIAL; HCO3-(ACT) 14.3 mmoll (20.0-26.0); METHB 0.8 % (0.0-1.5); O2(CT) 18.9 mL/dL (15.0-23.0); O2HB 95.7 % (95.0-99.0); PCO2(98.6) 25 mmHg (35-45); PO2(98.6) 101 mmHg (60-100); SAMPLE BLOOD
[2019-03-18 15:54] LABS: ALLEN TEST YES; MODALITY ROOM AIR; pH(98.6) 7.27 (7.35-7.45)
[2019-03-18 16:18] LABS: ESTIMATED GFR > 60
[2019-03-18 16:23] LABS: AGAP 24; BUN 9 mg/dL (8-22); CALCIUM 7.4 mg/dL (8.8-10.2); CHLORIDE 106 mmol/L (98-107); COSMO 280; CREATININE 0.7 mg/dL (0.5-0.9); GLUCOSE 164 mg/dL (70-104); MAGNESIUM 1.8 mg/dL (1.5-2.7); POTASSIUM 4.3 mmol/L (3.5-5.1); SODIUM 139 mmol/L (136-145); TCO2 10 mmol/L (25-35)
[2019-03-18] MEDS: POTASSIUM CHLORIDE 10% LIQUID PO PRN ×2 (16:45→22:02)
[2019-03-18] MEDS: MORPHINE IV PRN ×2 (16:45→22:03)
[2019-03-18] MEDS: NICODERM PATCH TD SCH (18:51)
[2019-03-18 19:55] LABS: HEMOGLOBIN A1C 12.6 % (4.8-6.0)
[2019-03-18 20:02] LABS: BE -7.3 mmoll (-3.0-3.0); BLOOD TYPE ARTERIAL; HCO3-(ACT) 19.2 mmoll (20.0-26.0); METHB 0.8 % (0.0-1.5); O2(CT) 18.2 mL/dL (15.0-23.0); O2HB 95.5 % (95.0-99.0); PCO2(98.6) 31 mmHg (35-45); PO2(98.6) 94 mmHg (60-100); SAMPLE BLOOD; THB 13.5 g/dL (11.5-17.4); pH(98.6) 7.35 (7.35-7.45)
[2019-03-18 20:04] LABS: ALLEN TEST YES; MODALITY ROOM AIR
[2019-03-18 20:48] LABS: AGAP 17; BUN 7 mg/dL (8-22); CALCIUM 8.6 mg/dL (8.8-10.2); CHLORIDE 109 mmol/L (98-107); COSMO 281; CREATININE 0.7 mg/dL (0.5-0.9); ESTIMATED GFR > 60; GLUCOSE 164 mg/dL (70-104); MAGNESIUM 1.5 mg/dL (1.5-2.7); POTASSIUM 4.4 mmol/L (3.5-5.1); SODIUM 140 mmol/L (136-145); TCO2 14 mmol/L (25-35)
[2019-03-18] MEDS ORDERED: MAALOX PLUS LIQUID PO ONE (23:25)
[2019-03-19 00:30] LABS: ESTIMATED GFR > 60
[2019-03-19 00:32] LABS: AGAP 18; BUN 6 mg/dL (8-22); CALCIUM 7.9 mg/dL (8.8-10.2); CHLORIDE 108 mmol/L (98-107); COSMO 285; CREATININE 0.7 mg/dL (0.5-0.9); GLUCOSE 201 mg/dL (70-104); PHOSPHORUS 1.3 mg/dL (2.7-4.5); POTASSIUM 4.2 mmol/L (3.5-5.1); SODIUM 141 mmol/L (136-145); TCO2 15 mmol/L (25-35)
[2019-03-19 00:41] LABS: CK PROFILE 274 U/L (24-173)
[2019-03-19] MEDS: POTASSIUM CHLORIDE 20 MEQ/SWI 20 MEQ/100 ML IVPB IV PRN ×2 (00:47→07:00)
[2019-03-19 01:27] LABS: CK-MB 2.64 ng/mL (0.0-5.0)
[2019-03-19] MEDS: REGLAN IV SCH ×2 (02:08→09:49)
[2019-03-19] MEDS: D5 NS 1,000 ML IV SCH (02:30)
[2019-03-19 05:53] LABS: BE -3.7 mmoll (-3.0-3.0); BLOOD TYPE ARTERIAL; METHB 0.9 % (0.0-1.5); O2(CT) 19.5 mL/dL (15.0-23.0); O2HB 94.8 % (95.0-99.0); PCO2(98.6) 35 mmHg (35-45); PO2(98.6) 79 mmHg (60-100); SAMPLE BLOOD; SAO2 97.3 % (95.0-100.0); THB 14.6 g/dL (11.5-17.4); pH(98.6) 7.38 (7.35-7.45)
[2019-03-19 06:03] LABS: ALLEN TEST YES; MODALITY ROOM AIR
[2019-03-19 06:43] LABS: AGAP 8; ALBUMIN 3.1 g/dL (3.5-5.0); ALKALINE PHOSPHATASE 117 U/L (32-104); BUN 4 mg/dL (8-22); CALCIUM 7.7 mg/dL (8.8-10.2); CHLORIDE 109 mmol/L (98-107); COSMO 270; CREATININE 0.5 mg/dL (0.5-0.9); ESTIMATED GFR > 60; GLUCOSE 191 mg/dL (70-104); GOT 22 U/L (10-30); GPT 19 U/L (10-36); MAGNESIUM 1.9 mg/dL (1.5-2.7); SODIUM 134 mmol/L (136-145); TCO2 18 mmol/L (25-35); TOTAL PROTEIN 5.9 g/dL (6.3-8.3)
[2019-03-19 06:49] LABS: BASO# 0.02 X1000 (0.0-0.2); BASO% 0.2 % (0.0-0.8); EOS# 0.13 X1000 (0.0-0.7); EOS% 1.3 % (0.0-10.0); HEMATOCRIT 38.3 % (37.0-47.0); HEMOGLOBIN 12.1 g/dL (12.0-16.0); IMM GRAN# 0.02 X1000 (0.0-0.04); IMM GRAN% 0.2 % (0.0-0.5); LYMPH# 2.33 X1000 (1.2-3.4); LYMPH% 23.6 % (20.5-51.1); MCH 28.5 PG (27-31); MCHC 31.6 g/dL (33-37); MCV 90.1 FL (81-99); MONO# 0.75 X1000 (0.11-0.59); MONO% 7.6 % (1.7-9.3); MPV 9.5 FL (7.4-10.4); NEUT# 6.64 X1000 (1.4-6.5); NEUT% 67.1 % (42.2-75.2); PLT 328 X1000 (130-400); RBC 4.25 XMIL (4.2-5.4); RDW 13.2 % (11.5-14.5); WBC 9.89 X1000 (4.8-10.8)
[2019-03-19 08:24] VITALS: BP 109/66
[2019-03-19] MEDS: NICODERM PATCH TD SCH (09:49)
[2019-03-19] MEDS: MORPHINE IV PRN (09:59)
[2019-03-19] MEDS ORDERED: LANTUS INSULIN SUBQ ONE (10:35)
[2019-03-19] MEDS ORDERED: HUMALOG (PARKWAY) SUBQ SCH (11:00)
--- NOTE | 2019-03-20 04:49 | DISCHARGE SUMMARY ---
ADMISSION DATE: 03/18/2019 DISCHARGE DATE: 03/19/2019 DISCHARGE DIAGNOSIS: Diabetic ketoacidosis. HISTORY: The patient is a type 1 diabetic. She has had multiple admissions for DKA. Please see admission details per Dr. Mariscal. She was placed on an insulin drip. Her gap closed. It was nearly closed, but not quite closed at 23:00. The next set of labs was not done until 5:00, but her gap was closed then. Her sugars have come down. From what I understand, patient's significant other was upset about not seeing a physician. She had seen a physician for a few minutes before, but I do not think it was her complaining as much as the or significant other. The nurse did alert me to that. I ordered to get off the insulin drip, put her on Lantus, and start a regular diet, but apparently that was not sufficient. She left AMA prior to any further adjustments. In any case, patient's DKA had resolved, but we were not able to make any other further adjustments. I did not evaluate the patient prior to discharge. cc: MD Mikie Nuñez MD
[2019-03-20] MEDS ORDERED: LANTUS INSULIN SUBQ SCH (09:00)
== END 2019-03-19 11:20 | disposition left against medical advice (07) | DRG 639 ==
LOC: P.ED 07:24 → SUATTDRO 08:42 → P.ICU 08:42
PROVIDERS: ATTEND Internal Medicine

== ENCOUNTER 2019-04-09 20:55 | Inpatient (IN) ==
[2019-04-09] MEDS ORDERED: NS 1,000 ML IV ONE (21:32)
[2019-04-09] MEDS ORDERED: LR 1,000 ML IV ONE (21:33)
[2019-04-09] MEDS ORDERED: HUMULIN R IV ONE (21:33)
[2019-04-09] MEDS ORDERED: ZOFRAN IV ONE (21:33)
[2019-04-09 21:57] LABS: BASO# 0.02 X1000 (0.0-0.2); BASO% 0.2 % (0.0-0.8); HEMATOCRIT 48.9 % (37.0-47.0); HEMOGLOBIN 15.5 g/dL (12.0-16.0); IMM GRAN# 0.03 X1000 (0.0-0.04); IMM GRAN% 0.4 % (0.0-0.5); LYMPH% 20.2 % (20.5-51.1); MCHC 31.7 g/dL (33-37); MCV 91.6 FL (81-99); MONO% 3.6 % (1.7-9.3); MPV 9.5 FL (7.4-10.4); NEUT# 6.36 X1000 (1.4-6.5); NEUT% 75.6 % (42.2-75.2); PLT 445 X1000 (130-400); RBC 5.34 XMIL (4.2-5.4); RDW 13.9 % (11.5-14.5); WBC 8.41 X1000 (4.8-10.8)
[2019-04-09 21:58] LABS: ALLEN TEST YES; BE -20.2 mmoll (-3.0-3.0); BLOOD TYPE ARTERIAL; HCO3-(ACT) 9.1 mmoll (20.0-26.0); METHB 1.4 % (0.0-1.5); O2(CT) 21.4 mL/dL (15.0-23.0); PO2(98.6) 150 mmHg (60-100); SAMPLE BLOOD; SAO2 98.3 % (95.0-100.0); THB 15.7 g/dL (11.5-17.4)
[2019-04-09 22:00] LABS: MODALITY ROOM AIR
[2019-04-09 22:01] LABS: PCO2(98.6) 15 mmHg (35-45); pH(98.6) 7.18 (7.35-7.45)
[2019-04-09] MEDS ORDERED: XYLOCAINE-MPF 1% INJ ONE (22:15)
[2019-04-09] MEDS ORDERED: ROCEPHIN IM ONE (22:15)
--- NOTE | 2019-04-09 22:19 | Diag Imaging Result Doc PS360 ---
CHEST-PORTABLE - 04/09/2019 INDICATION: dka, tachycard COMPARISON: 03/18/2019 FINDINGS: Stable small pulmonary nodule in the left upper lobe. There is suggestion of a left infrahilar infiltrate. Heart size is normal. No pneumothorax or pleural effusion. IMPRESSION: Left infrahilar bronchopneumonia. Electronically signed by Mikie Vlilarreal 04/09/2019 10:17 PM
[2019-04-09 22:30] LABS: BILIRUBIN URINE NEGATIVE (NEGATIVE); BLOOD URINE NEGATIVE (NEGATIVE); COLOR STRAW; GLUCOSE URINE >1000 mg/dL (NEGATIVE); KETONE URINE >150 mg/dL (NEGATIVE); LEUKOCYTES URINE NEGATIVE (NEGATIVE); NITRITE URINE NEGATIVE (NEGATIVE); PH URINE 5.5; PROTEIN URINE TRACE mg/dL (NEGATIVE); SP GRAVITY URINE 1.027; TURBIDITY URINE CLEAR (CLEAR); UR EPITHELIAL CELLS <10 /HPF (<10); URINE BACTERIA NEGATIVE /HPF; URINE RBC <10 /HPF (<10); URINE SOURCE CATH; URINE WBC <10 /HPF (<10); UROBILINOGEN URINE NORMAL (NORMAL)
[2019-04-09] MEDS ORDERED: HUMULIN R 100 UNIT in NS 100 ML IV SCH (22:30)
[2019-04-09 22:44] LABS: UR AMPHETAMINES QUAL NONE DETECTED (NONE DETECT); UR BARBITUATES QUAL NONE DETECTED (NONE DETECT); UR BENZODIAZEPIN QUAL NONE DETECTED (NONE DETECT); UR CANNABINOIDS QUAL NONE DETECTED (NONE DETECT); UR COCAINE QUAL NONE DETECTED (NONE DETECT); UR METHADONE QUAL NONE DETECTED (NONE DETECT); UR OPIATES QUAL NONE DETECTED (NONE DETECT); UR OXYCODONE QUAL NONE DETECTED (NONE DETECT); UR PCP QUAL NONE DETECTED (NONE DETECT)
[2019-04-09 22:50] LABS: ALB/GLOB RATIO 1.1; CALCIUM 9.2 mg/dL (8.8-10.2); CREATININE 1.3 mg/dL (0.5-0.9); MAGNESIUM 2.1 mg/dL (1.5-2.7); POTASSIUM 5.6 mmol/L (3.5-5.1); TOTAL BILIRUBIN 0.22 mg/dL (0.20-1.00); TOTAL PROTEIN 7.6 g/dL (6.3-8.3)
[2019-04-09] MEDS ORDERED: ZITHROMAX 500 MG/NS 500 MG/250 ML IVPB IV ONE (23:00)
--- NOTE | 2019-04-09 23:01 | PROVIDER DOCUMENTATION ---
This chart was entered by Destiny Hale Scribe, acting as scribe for Ángel Cam MD. HPI-General Adult - General Chief Complaint: Nausea/Vomiting Stated Complaint: hyperglycemia, fever Time Seen by Provider: 04/09/19 21:00 Source: patient Allergies/Adverse Reactions: Patient Allergies Allergy/AdvReac Type Severity Reaction Status Date / Time sulfamethoxazole Allergy Intermediate HIVES Verified 01/04/19 12:09 [From Bactrim] trimethoprim [From Bactrim] Allergy Intermediate HIVES Verified 01/04/19 12:09 Home Medications: Home Medication List Medication Instructions Recorded Confirmed Last Taken Type Insulin Aspart [Novolog Flexpen] 10 units SQ AC 03/18/19 03/18/19 Unknown History Insulin Glargine,Hum.rec.anlog 40 unit SQ HS 03/18/19 03/18/19 03/17/19 History [Lantus Solostar] - History of Present Illness -Gen Adult Nature of Presenting Problems: pt is a 28 yr old female presenting via EMS with 3 day complaint of elevated BGL, fatigue, nausea, vomiting and diarrhea. pt reports hx of IDDM, recent DKA admissions. Location of Pain/Injury: reports: abdomen Pain Radiation: reports: no radiation Quality of Pain: reports: aching Severity: reports: moderate Onset/Duration: reports: 3 days ago Timing: reports: still present, getting worse Context/Activities at Onset: reports: rest Associated Symptoms: reports: diarrhea, fatigue, malaise, nausea, vomiting. denies: chest pain, fever/chills, genitourinary problems Similar Symptoms Previously?: Yes Recently seen or treated by another doctor?: Yes - Diabetes Related Context Context: reports: high blood sugar, prior DKA hospitalization Review of Systems - Adult - REVIEW OF SYSTEMS - ADULT Constitutional: reports: chills, fatique. denies: fever Eyes: denies: blurred vision, double vision Ears, Nose, Mouth & Throat: denies: ear pain, sinus problem, throat pain Cardiovascular: denies: chest pain, palpitations, syncope Respiratory: denies: cough, dyspnea on exertion, shortness of breath Gastrointestinal: reports: abdominal pain, diarrhea, nausea, vomiting Genitourinary: denies: dysuria, frequency, flank pain Musculoskeletal: reports: muscle weakness Integumentary: reports: no symptoms reported Neurological: denies: dizziness/vertigo, headache/migraines, syncope Psychiatric: reports: no symptoms reported Endocrine: reports: no symptoms reported Hematologic/Lymphatic: reports: no symptoms reported Allergic/Immunologic: reports: no symptoms reported All Other Systems: Reviewed and Negative Past History - Adult - PAST MEDICAL HISTORY-ADULT Review of Records: reports: Old Records Reviewed, Nursing Assessment Review, Medications Reviewed, Social history reviewed & non-contributory. Major Childhood Illnesses: reports: denies history Cardiovascular: reports: CHF Respiratory: reports: denies history Gastrointestinal: reports: denies history Obstetrical/Gynecological: reports: denies history Genitourinary: reports: denies history Musculoskeletal: reports: denies history Neurological: reports: denies history Psychiatric: reports: denies history Endocrine/Immune: reports: Diabetes Other Conditions: reports: denies history - PRIOR SURGERIES/PROCEDURES Surgical/Procedure History: reports: BTL, - PRIOR HOSPITALIZATIONS Prior Hospitalizations: reports: none - IMMUNIZATION STATUS Childhood Immunizations: See Nurse Assessment Flu Vaccine: See Nurse Assessment - FAMILY HISTORY Family History: reviewed, not pertinent - SOCIAL HISTORY Smoking: cigarettes Provider spent 3-5 mins advising pt. on dangers of tobacco.: Discussed manners to quit use, and f/u contacts for add'l counseling. Substance Use: denies Living Situation: family Physical Exam-General - PHYSICAL EXAM-ADULT Initial Vital Signs Reviewed: Yes - CONSTITUTIONAL General Appearance: alert, no apparent distress, lethargic, slow to respond - EYES Eyes: PERRL/EOMI - HEAD, EARS, NOSE, MOUTH & THROAT HENMT: normocephalic/atraumatic, normal ENT inspection. negative: moist mucous membranes (markedly dry oral mucosa) - NECK Neck: non-tender, full range of motion, supple, normal inspection - RESPIRATORY Respiratory: lungs clear, normal breath sounds - CARDIOVASCULAR Cardiovascular: normal peripheral pulses, tachycardia - GASTROINTESTINAL (ABDOMEN) Abdominal Exam: normal bowel sounds, soft, tenderness (mild general tenderness) - LYMPHATIC Lymphatic: no adenopathy - MUSCULOSKELETAL Back Exam: normal inspection Extremity: normal range of motion, non-tender, normal inspection - SKIN Integumentary: normal color, normal turgor, warm/dry - NEUROLOGIC Neurologic: grossly normal, no motor/sensory deficits - PSYCHIATRIC Psych/Mental Status: normal mood/affect Progress - PLAN OF CARE/RESULTS Progress/Plan/Lab Results: Vital Signs - 8 hr 04/09/19 20:59 Temperature 98.1 F Pulse Rate 141 H Respiratory Rate 19 Blood Pressure 109/56 O2 Sat by Pulse Oximetry 99 Laboratory Results - last 24 hr 04/09/19 04/09/19 04/09/19 21:30 21:32 21:40 WBC 8.41 RBC 5.34 Hgb 15.5 Hct 48.9 H MCV 91.6 MCH 29.0 MCHC 31.7 L RDW Std Deviation 13.9 Plt Count 445 H MPV 9.5 Immature Gran % (Auto) 0.4 Neut % (Auto) 75.6 H Lymph % (Auto) 20.2 L [place] % (Auto) 3.6 Eos % (Auto) 0.0 Baso % (Auto) 0.2 Immature Gran # (Auto) 0.03 Neut # (Auto) 6.36 Lymph # (Auto) 1.70 [place] # (Auto) 0.30 Eos # (Auto) 0.00 Baso # (Auto) 0.02 Specimen Type ARTERIAL Sample Site R RADIAL pH 7.18 L* pCO2 15 L* pO2 150 H HCO3 9.1 L Base Excess -20.2 L Oxyhemoglobin 96.0 ABG O2 Sat (Calculated) 21.4 ABG O2 Saturation 98.3 ABG Carboxyhemoglobin 0.90 ABG Methemoglobin 1.4 Reid Test YES A-a O2 Difference -19.0 Total Hemoglobin 15.7 Lactate 2.50 H Liter Flow 0.0 Blood Gas Modality ROOM AIR FiO2 % 21.0 POC Glucose 500 H D 04/09/19 22:08 WBC RBC Hgb Hct MCV MCH MCHC RDW Std Deviation Plt Count MPV Immature Gran % (Auto) Neut % (Auto) Lymph % (Auto) [place] % (Auto) Eos % (Auto) Baso % (Auto) Immature Gran # (Auto) Neut # (Auto) Lymph # (Auto) [place] # (Auto) Eos # (Auto) Baso # (Auto) Specimen Type Sample Site pH pCO2 pO2 HCO3 Base Excess Oxyhemoglobin ABG O2 Sat (Calculated) ABG O2 Saturation ABG Carboxyhemoglobin ABG Methemoglobin Reid Test A-a O2 Difference Total Hemoglobin Lactate Liter Flow Blood Gas Modality FiO2 % POC Glucose 500 H Orders Category Date Time Status Cardiac Monitoring DIRECTED Care 04/09/19 21:30 Active Saline Loc NOW Care 04/09/19 21:30 Active CHEST-PORTABLE [RAD] Stat Exams 04/09/19 21:31 Taken ABG [RESP] Routine Lab 04/09/19 21:30 Completed ACETONE SERUM [CHEM] Stat Lab 04/09/19 21:40 Received BLOOD CULTURE [BLDCUL] Stat Lab 04/09/19 21:30 Ordered CBC WITH ELECTRONIC DIFF [HEME] Stat Lab 04/09/19 21:40 Completed COMPREHENSIVE METABOLIC PANEL [CHEM] Stat Lab 04/09/19 21:40 Received LACTATE, PLASMA [CHEM] Stat Lab 04/09/19 21:40 Received MAGNESIUM [CHEM] Stat Lab 04/09/19 21:40 Received TEST-URINE [PREG] Stat Lab 04/09/19 21:31 Uncollected TROPONIN T Stat Lab 04/09/19 21:40 Received URINALYSIS W/POSS RFLX CULT [URINALYSIS] Stat Lab 04/09/19 21:31 Uncollected URINE DRUG SCREEN Stat Lab 04/09/19 21:31 Uncollected 0.9% Sodium Chloride Inj [Ns] 1,000 ml Med 04/09/19 21:32 Active IV 999 mls/hr Insulin Human Regular [Humulin R] Med 04/09/19 21:33 Discontinued 10 unit IV NOW ONE Lactated Ringers Inj [Lr] 1,000 ml Med 04/09/19 21:33 Active IV 999 mls/hr Ondansetron [Zofran] Med 04/09/19 21:33 Discontinued 8 mg IV NOW ONE Result Diagrams: 04/09/19 21:40 04/09/19 21:40 - XRAY 1 XRAY Study: Chest Impression: See EMR Report (left blanquita-hilar bronchopneumonia) - CONSULTS/PCP/HOSPITALIST Notification #1 *Consult/PCP/Hospitalist*: DR CASTELLON Time Discussed: 23:01 Consult Disposition: Admit (ICU) Departure - Departure Date of Disposition Decision: 04/09/19 Time of Disposition Decision: 23:01 DIAGNOSIS: Tobacco abuse disorder, Lactic acidosis, Vomiting DKA (diabetic ketoacidoses) Qualifiers: Diabetes mellitus type: type 2 Diabetes mellitus ferry terminal agent insulin use: without ferry terminal agent use Diabetes mellitus complication detail: without coma Qualified Code(s): E11.10 - Type 2 diabetes mellitus with ketoacidosis without coma Disposition: ADMITTED INPATIENT 09 Certified Medical Emergency: Emergent Condition: Fair - Critical Care Note This patient required my direct & personal management of CC.: Yes Total Time (mins): 30 Critical Care Statement: This patient required my direct personal management to treat or rule out processes, the absence of which, could potentiallly result in sudden, clinically significant life or limb threatening deterioration. Attestation - Physician/ ALFREDO Attestation Patient care was provided by Advanced Practice Provider:: No The physician spent face to face time with patient:: Yes Advanced Practice Provider documentation review:: Supervising physician onsite and consulted in the evaluation and care of this patient. The physician did have a face to face encounter with the patient. This chart was documented by the indicated scribe, (Destiny Hale, Eddie) and accurately reflects the services I performed and decisions made by me, Ángel Cam MD, as attested by the provider's signature.
[2019-04-10] MEDS ORDERED: REGLAN IV ONE (00:12)
[2019-04-10] MEDS ORDERED: MORPHINE IV ONE (00:12)
[2019-04-10] MEDS ORDERED: D50W SYRINGE IV PRN (00:41)
[2019-04-10] MEDS ORDERED: HUMULIN R IV ONE (00:41)
[2019-04-10] MEDS ORDERED: POTASSIUM CHLORIDE 20 MEQ/SWI 20 MEQ/100 ML IVPB IV PRN (00:41)
[2019-04-10] MEDS ORDERED: MAGNESIUM SULFATE 2 GM/S.W.I. 2 GM/50 ML IVPB IV PRN (00:41)
[2019-04-10] MEDS ORDERED: SODIUM PHOSPHATE 30 MMOL in D5W 250 ML IV PRN (00:41)
[2019-04-10] MEDS ORDERED: POTASSIUM CHLORIDE 40 MEQ/SWI 40 MEQ/100 ML IVPB IV PRN (00:41)
[2019-04-10] MEDS ORDERED: D5 NS 1,000 ML IV PRN (00:41)
[2019-04-10] MEDS ORDERED: HUMULIN R 100 UNIT in NS 100 ML IV SCH (00:45)
[2019-04-10] MEDS ORDERED: NS 1,000 ML IV ONE ×2 (00:50→00:51)
[2019-04-10] MEDS: NS 1,000 ML IV SCH ×2 (03:06→09:40)
[2019-04-10 03:39] LABS: CALCIUM 8.3 mg/dL (8.8-10.2); CREATININE 1.2 mg/dL (0.5-0.9); PHOSPHORUS 3.8 mg/dL (2.7-4.5); POTASSIUM 4.2 mmol/L (3.5-5.1)
[2019-04-10] MEDS: SODIUM CHLORIDE 0.9% INJ SCH ×2 (03:44→14:20)
[2019-04-10] MEDS: PROTONIX IV SCH ×2 (03:44→14:20)
[2019-04-10 04:47] LABS: ALLEN TEST YES; BE -11.2 mmoll (-3.0-3.0); BLOOD TYPE ARTERIAL; HCO3-(ACT) 16.1 mmoll (20.0-26.0); METHB 0.8 % (0.0-1.5); O2HB 95.9 % (95.0-99.0); PCO2(98.6) 28 mmHg (35-45); PO2(98.6) 93 mmHg (60-100); SAMPLE BLOOD; SAO2 97.3 % (95.0-100.0); THB 17.8 g/dL (11.5-17.4); pH(98.6) 7.29 (7.35-7.45)
[2019-04-10 04:48] LABS: MODALITY ROOM AIR
[2019-04-10 05:06] LABS: BASO# 0.01 X1000 (0.0-0.2); BASO% 0.1 % (0.0-0.8); EOS# 0.01 X1000 (0.0-0.7); EOS% 0.1 % (0.0-10.0); HEMOGLOBIN 13.4 g/dL (12.0-16.0); IMM GRAN# 0.04 X1000 (0.0-0.04); IMM GRAN% 0.3 % (0.0-0.5); LYMPH# 2.11 X1000 (1.2-3.4); LYMPH% 16.9 % (20.5-51.1); MCHC 31.9 g/dL (33-37); MCV 90.9 FL (81-99); MONO# 0.37 X1000 (0.11-0.59); MPV 9.1 FL (7.4-10.4); NEUT# 9.92 X1000 (1.4-6.5); NEUT% 79.6 % (42.2-75.2); PLT 366 X1000 (130-400); RBC 4.62 XMIL (4.2-5.4); RDW 13.6 % (11.5-14.5); WBC 12.46 X1000 (4.8-10.8)
[2019-04-10 05:44] LABS: AGAP 25; BUN 8 mg/dL (8-22); CALCIUM 7.2 mg/dL (8.8-10.2); CHLORIDE 108 mmol/L (98-107); COSMO 291; ESTIMATED GFR > 60; GLUCOSE 135 mg/dL (70-104); MAGNESIUM 1.8 mg/dL (1.5-2.7); PHOSPHORUS 2.8 mg/dL (2.7-4.5); POTASSIUM 4.2 mmol/L (3.5-5.1); SODIUM 146 mmol/L (136-145); TCO2 13 mmol/L (25-35)
[2019-04-10] MEDS ORDERED: DUONEB (A & A) INH PRN (06:36)
[2019-04-10] MEDS ORDERED: KLOR-CON PO PRN (07:18)
[2019-04-10] MEDS ORDERED: KLOR-CON PO ONE (07:30)
[2019-04-10] MEDS: ZOSYN 3.375 GM in NS 50 ML IV SCH ×3 (07:33→18:04)
[2019-04-10] MEDS ORDERED: D5 1/2 NS + KCL 20 MEQ 1,000 ML IV SCH (10:00)
[2019-04-10 10:18] LABS: AGAP 22; BUN 6 mg/dL (8-22); CALCIUM 7.3 mg/dL (8.8-10.2); CHLORIDE 107 mmol/L (98-107); COSMO 291; ESTIMATED GFR > 60; GLUCOSE 179 mg/dL (70-104); MAGNESIUM 1.7 mg/dL (1.5-2.7); PHOSPHORUS 2.6 mg/dL (2.7-4.5); SODIUM 145 mmol/L (136-145); TCO2 16 mmol/L (25-35)
--- NOTE | 2019-04-10 10:37 | HISTORY AND PHYSICAL ---
PRIMARY CARE PROVIDER: Dr. Mikie Bui. CHIEF COMPLAINT: Nausea and vomiting. HISTORY OF PRESENT ILLNESS: Ms. Hu is a 28-year-old female with a past medical history most notable for diabetes mellitus type 1, anxiety, depression, gastroparesis and gastroesophageal reflux disease. She presented to the ER complaining of elevated blood sugar, fatigue, nausea, vomiting, and diarrhea for approximately 3 days. The patient states that she has been having coffee-ground appearance to her emesis as well. She did report that she did become choked a few times while vomiting. It is possible that she may have aspirated. Though she denies any cough or shortness of breath. She denies any abdominal pain. She reports as previously mentioned nausea, vomiting, and diarrhea. She denies any hematochezia or melena. She denies any dysuria or urinary frequency. She denies any pain, numbness, tingling or swelling in extremities. The patient states that she has not been out of her insulin. She has been taking it as prescribed. She denies any chest pain as well. Upon evaluation in the ER, the patient was noted to be tachycardic, had heart rate in the 130s to high 140s. Temperature was 98.1 degrees, respirations 21, blood pressure is 109/56 with a MAP of 70. Oxygen saturation was 99% on room air. Initial serum glucose was 651. She had sodium 131, potassium 5.6, chloride 84, serum bicarbonate is 7, and anion gap was 40. She did have a positive serum acetone as well. Arterial blood gases did show acidosis with pH of 7.18, pCO2 of 15, and HCO3 of 9.1. Urine did not show any signs of infection. Urine was negative. Chest x- ray did show that she had a left infrahilar bronchopneumonia. Blood cultures were obtained as well as a sputum culture. Given her reports of coffee-grounds emesis, we did do a Gastroccult which was positive. DKA protocol has been initiated. She will be placed in the ICU for close monitoring. REVIEW OF SYSTEMS: A 14 point review of systems was conducted with the patient. All were negative except for pertinent positives mentioned above in HPI. PAST MEDICAL HISTORY: 1. Diabetes mellitus type 1. 2. Anxiety disorder. 3. Depression. 4. Gastroparesis. 5. Gastroesophageal reflux disease. PAST SURGICAL HISTORY: The patient has no known past surgical history. SOCIAL HISTORY: The patient reports that she lives with her family. She denies any alcohol, tobacco, or illicit drug use. She reports her mother has a history of diabetes mellitus as well. ALLERGIES: Patient reports allergies to sulfa and Bactrim. HOME MEDICATIONS: We are waiting for the patient's home medication list to be verified at this time. Once this has been performed, we will continue appropriate medicines. DIAGNOSTIC DATA/LABORATORY RESULTS: White blood cell count is 8410, hemoglobin 15.5, hematocrit 48.9, and platelet count is 445,000. Sodium 131, potassium 5.6, chloride 84, serum bicarb 37, anion gap is 40, BUN 12, and creatinine is 1.3, GFR is 48, glucose 651, calcium 9.2, and magnesium 2.1. Liver function tests within normal limits and alkaline phosphatase elevated at 171. Troponin was less than 0.01. Plasma lactate was 2.3. Serum acetone level was positive. Urinalysis was obtained via catheter. It was positive for trace protein, greater than 1000 glucose, though was negative for blood, nitrites, leukocytes, white blood cells, or bacteria. Her urine was negative. Urine drug screen was negative. Arterial blood gases were obtained on room air, and did show a pH of 7.18, pCO2 of 15, PO2 of 150, HCO3 of 9.1 with a base excess of - 20.2, and O2 saturation of 98.3. Chest x-ray showed a left infrahilar bronchopneumonia. PHYSICAL EXAMINATION: VITAL SIGNS: Temperature 98.9 degrees, heart rate 130, respirations 16, blood pressure is 138/94, and oxygen saturation is 100% on room air. GENERAL: Ms. Hu is a 28-year-old, female. She was resting on the ER stretcher. The patient is very drowsy though she is arousable to verbal and light tactile stimulation. She did have active repeatedly be stimulated to stay awake. She would answer questions appropriately. She was alert and oriented to person, place, time, and situation. HEENT: Head is atraumatic, normocephalic. Pupils are equal, round, reactive to light, were 3 mm bilaterally and brisk. Oral mucosa was dry. Oropharynx is clear. NECK: Supple. Trachea midline. CARDIOVASCULAR: The patient has S1-S2 present. No murmurs, gallops, rubs appreciated with a tachycardic rate that is regular. PULMONARY: The patient has symmetrical chest expansion bilaterally. Lung sounds are clear to auscultation in bilateral full pimentel. ABDOMEN: Soft. The patient did report some generalized tenderness upon palpation. Bowel sounds are present in all 4 quadrants, and were normoactive. EXTREMITIES: No cyanosis or edema noted. Pulse, motor, and sensory were intact in all extremities. Radial pulses and pedal pulses were 2+ bilaterally. INTEGUMENTARY: The patient's skin is pink, warm, and dry. NEUROLOGICAL: The patient is alert and oriented. As mentioned above, the patient is very drowsy, though is arousable with verbal and light tactile stimulation. She did have to repeatedly be stimulated and asked questions more than once though would eventually answer my questions and answer them appropriately. She is alert and oriented to person, place, time, and situation. She is able move all extremities. ASSESSMENT AND PLAN: 1. DKA. The patient has been placed on the DKA protocol. She will be on insulin drip. She did receive a total of 3 L normal saline bolus. We will continue with the continuous normal saline infusion as well. She does have orders for electrolyte replacement as well as q.4 hours electrolyte labs of BMP, Mag and phosphorus. We will repeat ABG in the morning. She has been placed in ICU. We will continue to monitor her condition closely. 2. Intractable nausea, vomiting with coffee-grounds emesis. The patient's Gastroccult was positive. She will be NPO. We have placed orders for antiemetic as needed. We also placed her on Protonix 40 mg IV q.12 hours. We have placed a consult with Dr. Garcias, gastroenterology. We will await his evaluation and further recommendations for management. 3. Possible upper gastrointestinal bleed. We will continue treatment as mentioned above for #1. 4. Left infrahilar bronchopneumonia. Given the patient's nausea, vomiting, and reports that she did become choked a few times during her vomiting episodes, there is a possibility of aspiration pneumonia. We have placed her with antibiotics of Zosyn. Blood cultures have been obtained. Sputum culture has been ordered. We will do DuoNeb treatments as needed, incentive spirometry, and frequent encouragement to turn, cough and deep breathe. 5. Deep vein thrombosis prophylaxis provided with sequential compression devices. 6. The patient has been placed in the ICU for close monitoring. Do vital signs per ICU protocol. We will follow the DKA protocol as well. Further orders and recommendations pending hospital course, diagnostic studies, and physician evaluation. Dictated by DAPHNE Bae for Alonso Castañeda MD cc: Alonso Castañeda MD
--- NOTE | 2019-04-10 10:38 | PROGRESS NOTE ---
DATE: 04/10/2019 SUBJECTIVE: This morning Ms. Hu refers to be doing fairly okay. No new complaints. She is not having any more nausea or vomiting. Ms. Hu came in yesterday because of nausea and vomiting, was found to be in DKA. Ms. Hu was actually in the hospital mid last month and left AMA, also because of DKA. OBJECTIVE: Current vitals: Blood pressure is 106/57, pulse of 134, respirations 18, temperature is 99.4 degrees. General: Ms. Hu is a 28-year-old female. She is in bed in no distress. Mucosa is pink and moist, anicteric and acyanotic. Neck: Supple. Chest was clear to auscultation. No crepitations. No rhonchi. Cardiovascular: Regular rate and rhythm. No murmurs, no rubs, no gallops. GI: Abdomen was soft, nontender. Bowel sounds present. Extremities: No pedal edema. 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 LABORATORY DATA: WBC is 12.46, hemoglobin of 13.4, platelet count of 366,000. Chemistries also reviewed. Sodium is 146, potassium 4.2, chloride is 108, bicarb is 13, patient is still in a gap of 35, glucose is 149. A chest x-ray on admission showed a left infrahilar bronchopneumonia. The patient is currently on Zosyn. ASSESSMENT: 1. Intractable nausea and vomiting on presentation secondary to diabetic ketoacidosis. 2. Diabetes mellitus type 1, complicated with diabetic ketoacidosis. Patient is currently under the protocol. 3. Coffee-grounds emesis, most likely due to Esthela-Cole tears. Patient has been evaluated by GI. They recommend a PPI and just continue medical management. 4. Hemoconcentration secondary to volume depletion, improved. 5. Suspected medication noncompliance. 6. Left infrahilar bronchopneumonia on chest x-ray. The patient is on antimicrobial therapy. 7. High anion gap metabolic acidosis due to diabetic ketoacidosis. PLAN: In general, I think Ms. Hu is doing well. Her bicarb is improving. Gap is closing, still her gap is 25, down from 40 on admission. We are going to continue with the protocol. We will give her some ice chips and sips of water. Once the gap closes, then we will start to feed her and get her back to her home insulin regimen. I have switched her fluid to half-normal saline D5 with potassium because of her sodium. cc: Osmel Mckinney MD
[2019-04-10 14:40] LABS: AGAP 15; BUN 4 mg/dL (8-22); CALCIUM 7.5 mg/dL (8.8-10.2); CHLORIDE 105 mmol/L (98-107); COSMO 281; CREATININE 0.9 mg/dL (0.5-0.9); ESTIMATED GFR > 60; GLUCOSE 145 mg/dL (70-104); MAGNESIUM 2.4 mg/dL (1.5-2.7); PHOSPHORUS 2.2 mg/dL (2.7-4.5); POTASSIUM 4.2 mmol/L (3.5-5.1); SODIUM 141 mmol/L (136-145); TCO2 21 mmol/L (25-35)
[2019-04-10] MEDS ORDERED: LANTUS INSULIN SUBQ ONE (15:36)
[2019-04-10] MEDS: 1/2 NS 1,000 ML IV SCH (16:41)
[2019-04-10] MEDS: HUMALOG SUBQ SCH ×2 (17:20→21:01)
--- NOTE | 2019-04-10 18:35 | GASTROENTEROLOGY CONSULTATION ---
DATE: 04/10/2019 REASON FOR CONSULT: GI bleed, coffee-grounds emesis. HISTORY OF PRESENT ILLNESS: Ms. Hu 28-year-old female with a past medical history of diabetes type 1, anxiety, depression, gastroparesis, and GERD, presented to the ER with complains of elevated blood sugar, fatigue, nausea, vomiting, and diarrhea which she states was going on for the last 3 days. The patient was reluctant in answering any questions demanded that she gets something to eat and then she will answer. After requesting her she started to respond, mentioned that she was vomiting and her emesis looked like coffee ground in appearance. She has denied any shortness of breath, chest pain, abdominal pain. She said that she was out of her insulin and she had not taken it which made her sugar levels to spike up. While in the ER gastric occult test was done and it was positive, A chest x-ray was done and it showed left infrahilar bronchopneumonia. Patient has been in and out of the hospital many time, June, January and March, she left [facility] when she was here in March. Her potassium and sodium on admission was 5.6 and 131, today it is 4.2 and 141. Bicarb and onion gap on admission was 7 and 40, now it is 21 and 15. Her glucose was 651, today it is 145. PAST MEDICAL HISTORY: Diabetes type 1, anxiety, depression, gastroparesis, GERD. SURGICAL HISTORY: Denied any surgeries. SOCIAL HISTORY: Denies any alcohol, tobacco, or illicit drugs. Currently lives with family. FAMILY HISTORY: Mother had diabetes. ALLERGIES: Sulfa and Bactrim. HOME MEDICATIONS: Lantus SoloStar 40 units at bedtime, insulin NovoLog 10 units in the morning. REVIEW OF SYSTEMS: As per HPI. Otherwise, 12 point review of system is negative. PHYSICAL EXAMINATION: Vital Signs: Temperature 99.4 degrees, pulse 117, respirations 17, blood pressure 122/71, oxygen saturation 97% on room air. Weight is 159 pounds. BMI is 26.5 kg/m2. General: She is alert and oriented x2. Drowsy. Refusing to answer any questions appropriately. HEENT: Pale conjunctivae. No icterus. PERRL. Neck: Supple. Lungs: Clear to auscultation in the anterior pimentel. Cardiovascular: She is tachycardic. Abdomen: Soft. Generalized tenderness. Nondistended. Bowel sounds heard in all 4 quadrants. Extremities: No cyanosis, clubbing, or edema. Pedal pulses 2+, present bilaterally. Neurologic: Alert and oriented x2. Nonfocal. Cranial nerves 2-12 grossly intact. LABORATORY DATA: WBCs 12.46, RBC 4.62, hemoglobin 13.4, hematocrit 42.2, platelet count 366,000. Sodium 145, potassium 4.0, chloride 107, carbon dioxide 16, anion gap 22, BUN 6, creatinine 1.0, glucose 179, calcium 7.3, phosphorus 2.6, magnesium 1.7. Urinalysis showed trace of protein and greater than 1,000 of glucose. Toxicology report showed acetone levels were large. IMPRESSIONS: Nausea/Vomiting Coffee ground emesis GERD Gastroparesis DKA Type I diabetes Anxiety/Depression Electrolyte imbalance PLAN: We would continue with therapeutic care, treat her DKA and her sugar levels, once the patient is stabilized will plan to do an EGD if the symptoms still persist or worsens. She is currently on Protonix 40 mg for GI bleed. She is on antibiotic Zosyn for her bronchopneumonia. She is receiving IV fluids 1/2 NS @ 85 mls/hr. Her sugar levels are managed by insulin Humalog and Lantus. We will continue to monitor her CBC, BMP, and follow the plan of care per PCP. This plan was discussed with Dr. Bergeron. Thank you for your consult. Please call us for any further questions or concerns. Dictated by DAPHNE Rosado for William Bergeron MD Physician Attestation I have seen and examined the patient. I have discussed and reviewed the the note by Shalini SERNA and agree with findings and plan as documented. In brief, Ms. Eugene Hu is a 28 year old woman with poorly controlled IDDM1 admitted with N/V, abdominal pain, and coffee ground emesis in setting of DKA. Patient reports symptoms initially started in with NBNB emesis with retching that became bloody. DDx include Esthela Sammy tear, esophagitis, gastritis; less likely PUD. She is on PPI IV BID. Recommend correcting metabolic derangements and trending H/H. I suspect she may have decreased hgb with fluid resuscitation. Will follow with you. Please call with questions. MTDD
[2019-04-10] MEDS ORDERED: TYLENOL PO ONE (22:26)
[2019-04-11] MEDS: ZOSYN 3.375 GM in NS 50 ML IV SCH ×2 (00:49→05:51)
[2019-04-11] MEDS: PROTONIX IV SCH (04:26)
[2019-04-11] MEDS: 1/2 NS 1,000 ML IV SCH (04:26)
[2019-04-11] MEDS ORDERED: TYLENOL PO PRN (06:00)
[2019-04-11 06:11] LABS: HEMATOCRIT 41.6 % (37.0-47.0); HEMOGLOBIN 13.4 g/dL (12.0-16.0); MCHC 32.2 g/dL (33-37); MPV 8.5 FL (7.4-10.4); RBC 4.62 XMIL (4.2-5.4); RDW 13.6 % (11.5-14.5); WBC 8.84 X1000 (4.8-10.8)
[2019-04-11] MEDS: HUMALOG SUBQ SCH ×2 (07:02→10:41)
[2019-04-11 07:24] LABS: AGAP 10; ALBUMIN 2.6 g/dL (3.5-5.0); BUN 3 mg/dL (8-22); CALCIUM 8.2 mg/dL (8.8-10.2); CHLORIDE 103 mmol/L (98-107); COSMO 279; CREATININE 0.8 mg/dL (0.5-0.9); ESTIMATED GFR > 60; GLUCOSE 161 mg/dL (70-104); POTASSIUM 3.5 mmol/L (3.5-5.1); SODIUM 140 mmol/L (136-145); TCO2 27 mmol/L (25-35)
[2019-04-11] MEDS ORDERED: LANTUS INSULIN SUBQ SCH (09:00)
[2019-04-11 10:47] VITALS: BP 144/88
[2019-04-11] MEDS ORDERED: HUMALOG SUBQ SCH (17:00)
--- NOTE | 2019-04-11 18:27 | GASTROENTEROLOGY PROGRESS NOTE ---
DATE: 04/11/2019 SUBJECTIVE: Ms. Hu 28 year old female was resting in bed. She denied any nausea, vomiting, or abdominal pain. She said that she was able to eat her breakfast well. She has denied having a bowel movement. She says that it has been quite a few days that she has not had one. OBJECTIVE: Vital Signs: Temperature 98.1 degrees, pulse is 105, respirations 16, blood pressure 144/88, oxygen saturation 98% on room air. The patient's weight is 171 pounds. BMI is 26.6 kg/m2. General: She is alert, oriented x3, and in no acute distress. HEENT: Pale conjunctivae. No icterus. PERRL. Neck: Supple. Lungs: Clear to auscultation in the anterior pimentel. Cardiovascular: The patient is tachycardic. Abdomen: Soft, nontender, nondistended. Active bowel sounds heard in all 4 quadrants. Extremities: No clubbing. No cyanosis. No edema. Pedal pulses 2+ present bilaterally. Neurologic: She is alert, oriented x3. LABS: WBCs are 8.84, RBCs 4.62, hemoglobin 13.4, hematocrit is 41.6, platelet count is 285,000. Sodium 140, potassium 3.5, chloride 103, carbon dioxide is 27, anion gap 10, BUN is 3, creatinine is 0.8, glucose is 161, calcium 8.2, phosphorus 3.0, albumin 2.6. IMPRESSIONS: Nausea/Vomiting Coffee ground emesis Gastroparesis Type I diabetes DKA Anxiety/Depression Electrolyte imbalance resolved PLAN: We will continue our current plan of care. The patient's glucose levels are 161. Her electrolytes are within normal limits. The patient has denied any nausea, vomiting, or abdominal pain. We will continue to monitor the patient and follow the plan of care per PCP. Patient is getting discharged. This plan was discussed with Dr. Bergeron. Please call us for any questions or concerns. Dictated by DAPHNE Rosado for William Bergeron MD Physician Attestation I have seen and examined the patient. I have discussed and reviewed the the note by Shalini SERNA and agree with findings and plan as documented. In brief, Ms. Eugene Hu is a 28 year old woman with poorly controlled IDDM1 admitted with N/V, abdominal pain, and coffee ground emesis in setting of DKA. No further N/V or hematemesis. Hgb stable. Patient tolerating diet. No melena. Recommend transition PPI to PO daily. Follow-up as outpatient with GI as needed. Will sign off. Please call with questions. MTDD
--- NOTE | 2019-04-12 12:17 | DISCHARGE SUMMARY ---
ADMISSION DATE: 04/10/2019 DISCHARGE DATE: 04/11/2019 DISPOSITION: Home. FOLLOWUP: 1. Dr. Myron Yañez. 2. The patient also refers that she has an appointment with an microbiology laboratory manager in [place] in about a week. CONSULTATION DURING THIS ADMISSION: GI was consulted. The patient was seen by Dr. Bergeron. IMAGING STUDIES OF SIGNIFICANCE: A chest x-ray did show left infrahilar bronchopneumonia. INVASIVE PROCEDURES DONE DURING THIS ADMISSION: None. ADMISSION DIAGNOSES: 1. Diabetic ketoacidosis. 2. Intractable nausea and vomiting with coffee-grounds emesis. 3. Possible gastrointestinal. 4. Left infrahilar bronchopneumonia. DIAGNOSES AT THE TIME OF DISCHARGE: 1. Intractable nausea and vomiting on presentation secondary to diabetic ketoacidosis, resolved. 2. Diabetes mellitus type 1, complicated with diabetic ketoacidosis. The patient was admitted to the ICU, went through the pro diabetic ketoacidosis protocol. She is currently back on her regular insulin and she is doing well. 3. Coffee-grounds emesis, most likely due to Esthela-Cole tear. The patient is on proton pump inhibitor. Evaluated by GI. 4. Hemoconcentration secondary to volume depletion, improved. 5. Left infrahilar bronchopneumonia on chest x-ray. Patient is on antimicrobial therapy. 6. Suspected medication noncompliance. DISCHARGE MEDICATIONS: 1. Glargine 40 units subcutaneous at bedtime. 2. Aspart 10 units with meals. 3. Augmentin 875 p.o. b.i.d. PRESENTING COMPLAINT: Nausea and vomiting. HISTORY OF PRESENTING COMPLAINT: Ms Hu is a 28-year-old female with a history of diabetes mellitus type 1 on insulin therapy, came to the emergency department because of nausea and vomiting. Upon presentation, she was found to be very dehydrated and in DKA. She was admitted to the ICU for medical management. HOSPITAL COURSE: Ms Hu was admitted to the ICU, was adequately fluid resuscitated and was placed on the DKA protocol. She responded very well. The following day, gap had closed. Bicarb had normalized. Nausea and vomiting resolved. She was started on clear liquids and advance to a diabetic diet this morning. She has been tolerating her diet and she has been responding well to her home regimen. She was also started on antibiotics because of a left perihilar infection, which we think could have decompensated her glucose. We think Ms. Hu is now back to her baseline. CURRENT VITAL SIGNS: Blood pressure is 135/93, pulse is 95, respiration is 16, temperature is a 98.1 degrees. Ms. Hu is a clinical stable condition for discharge. FOLLOWUP: She will follow up with Dr. Myron Yañez. All the discharge instructions have been discussed with her and she voiced understanding. We have also stressed the need for medication compliance and follow-up appointments. cc: MD Myron Gordon MD
== END 2019-04-11 10:55 | disposition home or self-care (01) | DRG 637 ==
LOC: ED 20:55 → SUATTDRO 04-10 01:42 → ICU 04-10 01:42
PROVIDERS: ATTEND Internal Medicine

== ENCOUNTER 2019-05-19 07:07 | Inpatient (IN) ==
[2019-05-19] MEDS ORDERED: NS 1,000 ML IV ONE ×4 (07:18→10:27)
[2019-05-19] MEDS ORDERED: HUMULIN R IV ONE (07:42)
--- NOTE | 2019-05-19 07:48 | PROVIDER DOCUMENTATION ---
HPI-General Adult - General Chief Complaint: Nausea/Vomiting Stated Complaint: N/V Time Seen by Provider: 05/19/19 07:18 Source: patient, old records Allergies/Adverse Reactions: Patient Allergies Allergy/AdvReac Type Severity Reaction Status Date / Time sulfamethoxazole Allergy Intermediate HIVES Verified 01/04/19 12:09 [From Bactrim] trimethoprim [From Bactrim] Allergy Intermediate HIVES Verified 01/04/19 12:09 Home Medications: Home Medication List Medication Instructions Recorded Confirmed Last Taken Type Insulin Aspart [Novolog Flexpen] 10 units SQ AC 03/18/19 03/18/19 Unknown History Insulin Glargine,Hum.rec.anlog 40 unit SQ HS 03/18/19 03/18/19 03/17/19 History [Lantus Solostar] Amoxicillin/Potassium Clav 1 ea PO BID #10 tab 04/11/19 Unknown Rx [Augmentin 875-125 Tablet] - History of Present Illness -Gen Adult Nature of Presenting Problems: pt w/ hx of brittle Type I DM presents per EMS w/ cc: 2 days vomiting, reports suspected DKA. recent DKA 1 mo. ago complicating pneumonia. pt denies fever or obvious infection at this time. Review of Systems - Adult - REVIEW OF SYSTEMS - ADULT Constitutional: reports: no symptoms reported. denies: fever Eyes: reports: no symptoms reported Ears, Nose, Mouth & Throat: reports: no symptoms reported Cardiovascular: reports: no symptoms reported Respiratory: reports: no symptoms reported Gastrointestinal: reports: abdominal pain, nausea, vomiting Genitourinary: reports: no symptoms reported Musculoskeletal: reports: no symptoms reported Integumentary: reports: no symptoms reported Neurological: reports: no symptoms reported Psychiatric: reports: no symptoms reported Endocrine: reports: no symptoms reported Hematologic/Lymphatic: reports: no symptoms reported Allergic/Immunologic: reports: no symptoms reported All Other Systems: Reviewed and Negative Past History - Adult - PAST MEDICAL HISTORY-ADULT Review of Records: reports: Old Records Reviewed Major Childhood Illnesses: reports: denies history Cardiovascular: reports: CHF Respiratory: reports: denies history Gastrointestinal: reports: denies history Obstetrical/Gynecological: reports: denies history Genitourinary: reports: denies history Musculoskeletal: reports: denies history Neurological: reports: denies history Psychiatric: reports: denies history Endocrine/Immune: reports: Diabetes Other Conditions: reports: denies history - PRIOR SURGERIES/PROCEDURES Surgical/Procedure History: reports: BTL, - PRIOR HOSPITALIZATIONS Prior Hospitalizations: reports: none - IMMUNIZATION STATUS Childhood Immunizations: See Nurse Assessment Flu Vaccine: See Nurse Assessment - FAMILY HISTORY Family History: reviewed, not pertinent Physical Exam-General - PHYSICAL EXAM-ADULT Initial Vital Signs Reviewed: Yes - CONSTITUTIONAL General Appearance: moderate distress, thin, slow to respond. negative: obtunded, combative - EYES Eyes: PERRL/EOMI. negative: meningismus, scleral icterus - HEAD, EARS, NOSE, MOUTH & THROAT HENMT: normocephalic/atraumatic, normal ENT inspection. negative: moist mucous membranes - NECK Neck: supple - RESPIRATORY Respiratory: lungs clear - CARDIOVASCULAR Cardiovascular: normal peripheral pulses, regular rate, rhythm - GASTROINTESTINAL (ABDOMEN) Abdominal Exam: soft, no pulsatile mass. negative: distended, guarding, rigid, rebound - MUSCULOSKELETAL Back Exam: no CVA tenderness Extremity: normal range of motion Peripheral Pulses: radial (R): 2+, radial (L): 2+ - SKIN Integumentary: normal color, warm/dry. 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, grossly normal - PSYCHIATRIC Psych/Mental Status: normal thought content, oriented x 3 Progress - PLAN OF CARE/RESULTS Progress/Plan/Lab Results: Vital Signs - 8 hr 05/19/19 07:15 Temperature 97.6 F Pulse Rate 141 H Respiratory Rate 18 Blood Pressure 90/50 O2 Sat by Pulse Oximetry 98 Orders Category Date Time Status FSBS/Accucheck Result NOW Care 05/19/19 07:19 Active Viveros Cath Insertion ORDERED Care 05/19/19 07:43 Active Use DKA Protocol (paper) ORDERED Care 05/19/19 07:40 Active Use DKA Protocol (paper) ORDERED Care 05/19/19 07:40 Active CHEST-1 VIEW [RAD] Stat Exams 05/19/19 07:43 Ordered CBC WITH DIFF [HEME] Stat Lab 05/19/19 07:19 Uncollected COMPREHENSIVE METABOLIC PANEL [CHEM] Stat Lab 05/19/19 07:19 Uncollected URINALYSIS W/POSS RFLX CULT [URINALYSIS] Stat Lab 05/19/19 07:43 Uncollected 0.9% Sodium Chloride Inj [Ns] 1,000 ml Med 05/19/19 07:18 Active IV 250 mls/hr Insulin Human Regular [Humulin R] Med 05/19/19 07:42 Discontinued 10 unit IV NOW ONE Result Diagrams: 05/19/19 07:57 05/19/19 14:19 - REASSESSMENT Reassessment #2 Time Reassessed: 09:49 Status: unchanged (pt continues to retch despite 2 doses IV Zofran. pH 7.27 w/ elev lactate also, however appears to be DKA. U/A reveals no infection (UDS pending still, as is CXR). pt on DKA protocol, remains tachycardic. needs more aggressive fluids, RN is starting 2nd IV. will consult for admit.) - CONSULTS/PCP/HOSPITALIST Notification #1 *Consult/PCP/Hospitalist*: Hodan Time Discussed: 09:59 Consult Disposition: Will see in ED Departure - Departure Date of Disposition Decision: 05/19/19 Time of Disposition Decision: 11:15 DIAGNOSIS: DKA (diabetic ketoacidoses) Disposition: ADMITTED INPATIENT 09 Certified Medical Emergency: Emergent Condition: Critical - Critical Care Note This patient required my direct & personal management of CC.: Yes Total Time (mins): 50 Critical Care Statement: This patient required my direct personal management to treat or rule out processes, the absence of which, could potentiallly result in sudden, clinically significant life or limb threatening deterioration. Attestation - Physician/ ALFREDO Attestation The physician spent face to face time with patient:: Yes Advanced Practice Provider documentation review:: Supervising physician onsite and consulted in the evaluation and care of this patient. The physician did have a face to face encounter with the patient.
[2019-05-19 08:23] LABS: BASO# 0.02 X1000 (0.0-0.2); BASO% 0.1 % (0.0-0.8); HEMATOCRIT 48.4 % (37.0-47.0); HEMOGLOBIN 15.2 g/dL (12.0-16.0); IMM GRAN# 0.04 X1000 (0.0-0.04); IMM GRAN% 0.3 % (0.0-0.5); LYMPH# 1.15 X1000 (1.2-3.4); LYMPH% 7.6 % (20.5-51.1); MCH 28.8 PG (27-31); MCHC 31.4 g/dL (33-37); MCV 91.8 FL (81-99); MONO# 0.76 X1000 (0.11-0.59); MPV 9.6 FL (7.4-10.4); NEUT# 13.09 X1000 (1.4-6.5); PLT 572 X1000 (130-400); RBC 5.27 XMIL (4.2-5.4); RDW 15.4 % (11.5-14.5); WBC 15.06 X1000 (4.8-10.8)
[2019-05-19] MEDS ORDERED: POTASSIUM CHLORIDE 10% LIQUID PO PRN (08:35)
[2019-05-19] MEDS ORDERED: D50W SYRINGE IV PRN ×2 (08:35)
[2019-05-19] MEDS ORDERED: POTASSIUM CHLORIDE 20 MEQ/SWI 20 MEQ/100 ML IVPB IV PRN (08:35)
[2019-05-19] MEDS ORDERED: SODIUM PHOSPHATE 30 MMOL in D5W 250 ML IV PRN (08:35)
[2019-05-19] MEDS ORDERED: SODIUM BICARBONATE 8.4% 100 MEQ in STERILE WATER INJ. 500 ML IV PRN (08:35)
[2019-05-19] MEDS ORDERED: MAGNESIUM SULFATE 2 GM/S.W.I. 2 GM/50 ML IVPB IV PRN (08:35)
[2019-05-19 08:50] LABS: URINE SOURCE CATH
[2019-05-19 08:57] LABS: BILIRUBIN URINE SMALL (NEGATIVE); BLOOD URINE NEGATIVE (NEGATIVE); COLOR YELLOW; GLUCOSE URINE >1000 mg/dL (NEGATIVE); KETONE URINE >150 mg/dL (NEGATIVE); LEUKOCYTES URINE NEGATIVE (NEGATIVE); NITRITE URINE NEGATIVE (NEGATIVE); PH URINE 5.5; PROTEIN URINE TRACE mg/dL (NEGATIVE); SP GRAVITY URINE 1.024; TURBIDITY URINE CLEAR (CLEAR); UROBILINOGEN URINE 2 mg/dL (NORMAL)
[2019-05-19 08:58] LABS: UR EPITHELIAL CELLS <10 /HPF (<10); URINE BACTERIA NEGATIVE /HPF; URINE RBC <10 /HPF (<10); URINE WBC <10 /HPF (<10)
[2019-05-19] MEDS ORDERED: ZOFRAN IV ONE (09:07)
[2019-05-19] MEDS ORDERED: ZOFRAN ONE (09:14)
[2019-05-19 09:15] LABS: ALB/GLOB RATIO 0.9; ALBUMIN 3.5 g/dL (3.5-5.0); MAGNESIUM 2.8 mg/dL (1.5-2.7); POTASSIUM 4.7 mmol/L (3.5-5.1); TOTAL BILIRUBIN 0.41 mg/dL (0.20-1.00); TOTAL PROTEIN 7.3 g/dL (6.3-8.3)
[2019-05-19 09:40] LABS: ALLEN TEST NO; BE -16.3 mmoll (-3.0-3.0); BLOOD TYPE ARTERIAL; HCO3-(ACT) 12.1 mmoll (20.0-26.0); METHB 1.2 % (0.0-1.5); O2(CT) 20.4 mL/dL (15.0-23.0); O2HB 92.8 % (95.0-99.0); PO2(98.6) 73 mmHg (60-100); SAMPLE BLOOD; SAO2 94.9 % (95.0-100.0); THB 15.6 g/dL (11.5-17.4); pH(98.6) 7.27 (7.35-7.45)
[2019-05-19] MEDS: POTASSIUM CHLORIDE 20 MEQ/SWI 20 MEQ/100 ML IVPB IV PRN (09:41)
[2019-05-19 09:42] LABS: MODALITY ROOM AIR; PCO2(98.6) 17 mmHg (35-45)
[2019-05-19] MEDS ORDERED: HUMULIN R 100 UNIT in NS 100 ML IV SCH ×2 (09:45→14:00)
[2019-05-19] MEDS ORDERED: SODIUM CHLORIDE 0.9% INJ ONE (09:51)
[2019-05-19] MEDS ORDERED: PHENERGAN IV ONE (09:51)
[2019-05-19 10:05] LABS: UR AMPHETAMINES QUAL PRESUMPTIVE POSITIVE (NONE DETECT); UR BARBITUATES QUAL NONE DETECTED (NONE DETECT); UR BENZODIAZEPIN QUAL NONE DETECTED (NONE DETECT); UR CANNABINOIDS QUAL NONE DETECTED (NONE DETECT); UR COCAINE QUAL NONE DETECTED (NONE DETECT); UR METHADONE QUAL NONE DETECTED (NONE DETECT); UR OPIATES QUAL NONE DETECTED (NONE DETECT); UR OXYCODONE QUAL NONE DETECTED (NONE DETECT); UR PCP QUAL NONE DETECTED (NONE DETECT)
[2019-05-19] MEDS ORDERED: SODIUM BICARBONATE 8.4% IV PUSH ONE (10:22)
--- NOTE | 2019-05-19 10:22 | Diag Imaging Result Doc PS360 ---
EXAM: ELBOW COMPLETE LEFT 05/19/2019 HISTORY: PAIN, INJURY TECHNIQUE: Left elbow three views COMMENT: There is no evidence of fracture, dislocation, or periosteal reaction. There is no evidence of effusion. IMPRESSION: No acute bony abnormality. Electronically signed by Herve Walls 05/19/2019 10:20 AM
--- NOTE | 2019-05-19 10:23 | Diag Imaging Result Doc PS360 ---
EXAM: CHEST-1 VIEW 05/19/2019 HISTORY: DKA, recent ? pneumonia TECHNIQUE: AP portable supine at 1013 COMMENT: The appearance the chest has not changed significantly since 04/09/2019. The pulmonary nodule which was demonstrated in the left upper lobe on the previous study is partially obscured by an EKG lead. IMPRESSION: Stable chest. Electronically signed by Herve Walls 05/19/2019 10:21 AM
[2019-05-19] MEDS ORDERED: PROTONIX 80 MG in NS 80 ML IV ONE (10:24)
[2019-05-19] MEDS ORDERED: ATIVAN IV ONE (11:39)
[2019-05-19 12:03] LABS: PHOSPHORUS 8.5 mg/dL (2.7-4.5)
[2019-05-19 12:05] LABS: HEMOGLOBIN A1C 10.7 % (4.8-6.0)
[2019-05-19] MEDS: PROTONIX 80 MG in NS 80 ML IV SCH ×2 (12:07→23:16)
[2019-05-19] MEDS: NS 1,000 ML IV SCH ×3 (14:00→16:00)
[2019-05-19 14:49] LABS: MAGNESIUM 2.2 mg/dL (1.5-2.7); PHOSPHORUS 3.1 mg/dL (2.7-4.5)
[2019-05-19 14:57] LABS: CALCIUM 8.4 mg/dL (8.8-10.2); POTASSIUM 3.9 mmol/L (3.5-5.1)
[2019-05-19 15:50] LABS: ALLEN TEST NO; BLOOD TYPE ARTERIAL; HCO3-(ACT) 19.4 mmoll (20.0-26.0); METHB 1.1 % (0.0-1.5); O2(CT) 19.3 mL/dL (15.0-23.0); O2HB 95.6 % (95.0-99.0); PCO2(98.6) 28 mmHg (35-45); PO2(98.6) 90 mmHg (60-100); SAMPLE BLOOD; SAO2 97.9 % (95.0-100.0); THB 14.3 g/dL (11.5-17.4); pH(98.6) 7.38 (7.35-7.45)
[2019-05-19 15:52] LABS: MODALITY ROOM AIR
[2019-05-19] MEDS: D5 1/2 NS 1,000 ML IV SCH (16:29)
[2019-05-19] MEDS: NS IV SCH ×5 (16:40→23:23)
[2019-05-19] MEDS: ERYTHROMYCIN IV SCH ×5 (16:40→23:23)
[2019-05-19] MEDS: ZOFRAN IV PRN ×2 (17:03→22:40)
[2019-05-19] MEDS: TYLENOL PR PRN ×2 (17:03→20:36)
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
[2019-05-19] MEDS: 1/2 NS 1,000 ML IV SCH ×2 (18:24→22:23)
[2019-05-19] MEDS: ZOSYN 2.25 GM in NS 50 ML IV SCH ×4 (18:30→22:25)
[2019-05-19] MEDS: ZYVOX 600 MG/D5W 600 MG/300 ML IVPB IV SCH (18:30)
[2019-05-19 20:19] LABS: MAGNESIUM 2.2 mg/dL (1.5-2.7); PHOSPHORUS 3.8 mg/dL (2.7-4.5)
[2019-05-19 20:22] LABS: CALCIUM 8.3 mg/dL (8.8-10.2); CREATININE 1.6 mg/dL (0.5-0.9); POTASSIUM 3.7 mmol/L (3.5-5.1)
[2019-05-20] MEDS: D5 1/2 NS 1,000 ML IV SCH ×3 (00:40→21:19)
[2019-05-20 01:20] LABS: INR 1.14; PROTIME 14.7 Seconds (11.0-16.0)
[2019-05-20 01:34] LABS: CALCIUM 8.1 mg/dL (8.8-10.2); CREATININE 1.4 mg/dL (0.5-0.9); POTASSIUM 3.7 mmol/L (3.5-5.1)
[2019-05-20] MEDS: ZOSYN 2.25 GM in NS 50 ML IV SCH ×6 (01:58→20:15)
[2019-05-20] MEDS: POTASSIUM CHLORIDE 20% LIQUID PO PRN ×3 (01:58→22:04)
[2019-05-20 02:47] LABS: PHOSPHORUS 3.4 mg/dL (2.7-4.5)
[2019-05-20 03:44] LABS: BASO# 0.03 X1000 (0.0-0.2); BASO% 0.2 % (0.0-0.8); HEMATOCRIT 39.6 % (37.0-47.0); HEMOGLOBIN 12.7 g/dL (12.0-16.0); IMM GRAN# 0.02 X1000 (0.0-0.04); IMM GRAN% 0.2 % (0.0-0.5); LYMPH# 1.67 X1000 (1.2-3.4); LYMPH% 13.8 % (20.5-51.1); MCH 29.5 PG (27-31); MCHC 32.1 g/dL (33-37); MCV 91.9 FL (81-99); MONO# 1.32 X1000 (0.11-0.59); MONO% 10.9 % (1.7-9.3); NEUT# 9.02 X1000 (1.4-6.5); NEUT% 74.9 % (42.2-75.2); PLT 383 X1000 (130-400); RBC 4.31 XMIL (4.2-5.4); RDW 16.1 % (11.5-14.5); WBC 12.06 X1000 (4.8-10.8)
[2019-05-20 04:07] LABS: CALCIUM 7.7 mg/dL (8.8-10.2); CREATININE 1.2 mg/dL (0.5-0.9); POTASSIUM 4.1 mmol/L (3.5-5.1)
--- NOTE | 2019-05-20 04:30 | HISTORY AND PHYSICAL ---
ADDENDUM: The patient seen and examined by me [id number]. All the laboratory, vital signs and images were reviewed. The patient presented to the emergency department with nausea, vomiting, generalized weakness and mental status changes/she is lethargic. The patient is able to wake up and answer some of my questions, but she is falling asleep again right away, she does have DKA. She has been placed on the protocol. It looks like her most recent DKA was like a month ago, complicated with pneumonia. I do not see any new lesions on her lungs. She does have a history of type 1 diabetes. Her laboratory showed also that this patient is positive for amphetamines, but she is not telling me if she is using that or not, but likely she is. She has multiple needle dowling on her arms and also around her left shoulder. She has been vomiting blood. She has been placed on a Protonix drip for now. Hemoglobin is 15.2, but likely she is hemoconcentrated. After getting fluids likely this is going to drop a lot. Once she is more stable, I will ask Gastroenterology Department to evaluate this patient. Likely, this is due to multiple vomiting and retching. Because of the needle dowling, I will put this patient on antibiotics and I will ask for blood cultures. She received already multiple bags of fluids, including some bicarbonate. Apparently, she has a history of gastroparesis, but she is not able to answer me that question. She has been placed on azithromycin for now as well, which I will stop once she is doing better. We will take care of the electrolytes and, like I said, we will monitor this patient following the DKA protocol. The patient seems to be remarkably sick. She will be transferred to the ICU. We will monitor this patient closely. I agree with the rest of the nurse practitioner's assessment and plan. cc: Dash Velarde MD
[2019-05-20] MEDS: ERYTHROMYCIN IV SCH ×4 (04:38→23:34)
[2019-05-20] MEDS: NS IV SCH ×4 (04:38→23:34)
[2019-05-20] MEDS: ZYVOX 600 MG/D5W 600 MG/300 ML IVPB IV SCH ×2 (05:43→18:24)
[2019-05-20] MEDS: 1/2 NS 1,000 ML IV SCH ×3 (05:44→22:06)
[2019-05-20] MEDS: PROTONIX 80 MG in NS 80 ML IV SCH (05:54)
[2019-05-20 06:01] LABS: PHOSPHORUS 3.3 mg/dL (2.7-4.5)
--- NOTE | 2019-05-20 07:19 | Diag Imaging Result Doc PS360 ---
EXAM: CHEST-PORTABLE 05/20/2019 HISTORY: dyspnea TECHNIQUE: AP portable upright at 0505 COMMENT: There is no evidence of acute cardiac or pulmonary disease. Compared to 05/19/2019 considering differences in inspiration and technique there has been no significant change. IMPRESSION: Stable chest. Electronically signed by Herve Walls 05/20/2019 7:17 AM
--- NOTE | 2019-05-20 09:04 | PROGRESS NOTE ---
DATE: 05/20/2019 SUBJECTIVE: The patient seems to be a little bit more stable today compared with yesterday. She seems to be hydrated now. She is still complaining of generalized weakness and pain. She is still in DKA. We will continue with the same management. WBC is trending down, as well as the creatinine. Kidney function is getting better. Will continue with the DKA protocol. I had a conversation with this patient about drugs, and as per the patient, she uses amphetamines through her vein. Cultures so far are negative. I will wait for the final results, and I will ask for an echocardiogram if the cultures are positive. I do not hear any murmur. She is tachycardic. OBJECTIVE: Vital Signs: Temperature 98.9 degrees, pulse 127, respiratory rate 13, blood pressure 153/78, oxygen saturation 99 on room air. HEENT: Head normocephalic. No trauma. PERRLA. Neck: Supple. No JVD. No masses. Central trachea. Chest: Clear to auscultation. No wheezing. No rales. Abdomen: Soft. Some tenderness to palpation at the level of the epigastric and periumbilical area. Positive bowel sounds. Extremities: No edema, no clubbing, no cyanosis. She does have multiple needle dowling, and they were there are even before she came to the hospital. Neurological: This patient is lethargic, but she is responding to my voice. She is answering some of my questions. She seems to be oriented. LABORATORY DATA: WBC 12, hemoglobin 12.7, hematocrit 39.6, platelets 383,000. Sodium 144, potassium 4.1, chloride 100, bicarbonate 23, BUN 12, creatinine 1.2, glucose 364, calcium 7.7. Phosphorus 3.3, magnesium. ASSESSMENT AND PLAN: 1. Diabetes ketoacidosis, likely due to medical noncompliance. This patient's hemoglobin A1c is 10.7. I do not think she is taking any kind of treatment at home. She should be using NovoLog 10 units before meals, and glargine 40 units daily. We will continue with the same management, diabetic ketoacidosis protocol. 2. Gastroesophageal reflux disease with coffee-grounds emesis. Continue with proton pump inhibitors. Likely due to Esthela-Cole tear. We will ask Gastroenterology Department to evaluate this patient in the future once this patient is more stable. 3. Nausea and vomiting as above. 4. History of gastroparesis. Aware. For now, will continue with the same management. 5. Drug abuse, especially amphetamine. As per the patient, she has been using amphetamine through her vein. We requested blood cultures, and they have been negative so far. If they came back positive at some point, we will do an echocardiogram and get Infectious Disease Department on board, but for now, will monitor. She is on broad-spectrum antibiotics at this moment. 6. Medical noncompliance. Aware. 7. Uncontrolled type 1 diabetes. As per #1. CRITICAL CARE TIME: 35 minutes. cc: Dash Velarde MD
[2019-05-20] MEDS ORDERED: NS 250 ML ONE (10:34)
[2019-05-20] MEDS: PROTONIX IV SCH ×2 (11:00→23:34)
[2019-05-20 12:41] LABS: BASO# 0.02 X1000 (0.0-0.2); BASO% 0.2 % (0.0-0.8); EOS# 0.01 X1000 (0.0-0.7); EOS% 0.1 % (0.0-10.0); HEMATOCRIT 37.3 % (37.0-47.0); HEMOGLOBIN 11.7 g/dL (12.0-16.0); IMM GRAN# 0.02 X1000 (0.0-0.04); IMM GRAN% 0.2 % (0.0-0.5); LYMPH# 2.01 X1000 (1.2-3.4); LYMPH% 17.1 % (20.5-51.1); MCH 29.5 PG (27-31); MCHC 31.4 g/dL (33-37); MONO# 1.12 X1000 (0.11-0.59); MONO% 9.5 % (1.7-9.3); MPV 8.5 FL (7.4-10.4); NEUT% 72.9 % (42.2-75.2); PLT 308 X1000 (130-400); RBC 3.97 XMIL (4.2-5.4); WBC 11.78 X1000 (4.8-10.8)
[2019-05-20 13:14] LABS: CALCIUM 7.8 mg/dL (8.8-10.2); CREATININE 1.1 mg/dL (0.5-0.9); MAGNESIUM 1.7 mg/dL (1.5-2.7); PHOSPHORUS 3.2 mg/dL (2.7-4.5); POTASSIUM 3.3 mmol/L (3.5-5.1)
[2019-05-20] MEDS: POTASSIUM CHLORIDE 20 MEQ/SWI 20 MEQ/100 ML IVPB IV PRN (14:30)
[2019-05-20] MEDS ORDERED: POTASSIUM CHLORIDE 20 MEQ/SWI 20 MEQ/100 ML IVPB IV PRN (16:50)
[2019-05-20] MEDS ORDERED: SODIUM PHOSPHATE 30 MMOL in D5W 250 ML IV PRN (16:50)
[2019-05-20 16:58] LABS: BASO# 0.02 X1000 (0.0-0.2); BASO% 0.2 % (0.0-0.8); EOS# 0.01 X1000 (0.0-0.7); EOS% 0.1 % (0.0-10.0); HEMOGLOBIN 11.8 g/dL (12.0-16.0); IMM GRAN# 0.02 X1000 (0.0-0.04); IMM GRAN% 0.2 % (0.0-0.5); LYMPH# 2.36 X1000 (1.2-3.4); LYMPH% 20.2 % (20.5-51.1); MCH 29.3 PG (27-31); MCHC 31.1 g/dL (33-37); MCV 94.3 FL (81-99); MONO# 1.05 X1000 (0.11-0.59); MPV 8.3 FL (7.4-10.4); NEUT% 70.3 % (42.2-75.2); PLT 303 X1000 (130-400); RBC 4.03 XMIL (4.2-5.4); RDW 15.9 % (11.5-14.5); WBC 11.66 X1000 (4.8-10.8)
[2019-05-20] MEDS ORDERED: POTASSIUM CHLORIDE 20 MEQ/SWI 20 MEQ/100 ML IVPB IV SCH (17:00)
[2019-05-20] MEDS ORDERED: POTASSIUM CHLORIDE 40 MEQ/SWI 40 MEQ/100 ML IVPB IV PRN (17:02)
[2019-05-20 17:18] LABS: MAGNESIUM 2.6 mg/dL (1.5-2.7); PHOSPHORUS 2.8 mg/dL (2.7-4.5)
[2019-05-20 17:23] LABS: AGAP 19; BUN 6 mg/dL (8-22); CALCIUM 8.1 mg/dL (8.8-10.2); CHLORIDE 100 mmol/L (98-107); COSMO 286; ESTIMATED GFR > 60; GLUCOSE 166 mg/dL (70-104); POTASSIUM 3.8 mmol/L (3.5-5.1); SODIUM 143 mmol/L (136-145); TCO2 24 mmol/L (25-35)
[2019-05-20 20:58] LABS: BASO# 0.01 X1000 (0.0-0.2); BASO% 0.1 % (0.0-0.8); EOS# 0.01 X1000 (0.0-0.7); EOS% 0.1 % (0.0-10.0); HEMATOCRIT 36.4 % (37.0-47.0); HEMOGLOBIN 11.2 g/dL (12.0-16.0); IMM GRAN# 0.02 X1000 (0.0-0.04); IMM GRAN% 0.2 % (0.0-0.5); LYMPH# 2.18 X1000 (1.2-3.4); LYMPH% 22.1 % (20.5-51.1); MCH 29.1 PG (27-31); MCHC 30.8 g/dL (33-37); MCV 94.5 FL (81-99); MONO# 0.77 X1000 (0.11-0.59); MONO% 7.8 % (1.7-9.3); MPV 8.5 FL (7.4-10.4); NEUT# 6.88 X1000 (1.4-6.5); NEUT% 69.7 % (42.2-75.2); PLT 280 X1000 (130-400); RBC 3.85 XMIL (4.2-5.4); RDW 15.8 % (11.5-14.5); WBC 9.87 X1000 (4.8-10.8)
[2019-05-20 21:09] LABS: MAGNESIUM 2.1 mg/dL (1.5-2.7); PHOSPHORUS 2.5 mg/dL (2.7-4.5)
[2019-05-20 21:20] LABS: AGAP 16; BUN 4 mg/dL (8-22); CALCIUM 7.9 mg/dL (8.8-10.2); CHLORIDE 98 mmol/L (98-107); COSMO 277; CREATININE 0.9 mg/dL (0.5-0.9); ESTIMATED GFR > 60; GLUCOSE 178 mg/dL (70-104); POTASSIUM 4.4 mmol/L (3.5-5.1); SODIUM 138 mmol/L (136-145); TCO2 24 mmol/L (25-35)
[2019-05-20] MEDS: ATIVAN IV PRN (23:06)
[2019-05-21 01:05] LABS: BASO# 0.02 X1000 (0.0-0.2); BASO% 0.2 % (0.0-0.8); EOS# 0.03 X1000 (0.0-0.7); EOS% 0.3 % (0.0-10.0); HEMATOCRIT 36.1 % (37.0-47.0); LYMPH# 2.14 X1000 (1.2-3.4); MCH 28.9 PG (27-31); MCHC 30.5 g/dL (33-37); MONO# 0.61 X1000 (0.11-0.59); MONO% 6.6 % (1.7-9.3); MPV 8.5 FL (7.4-10.4); NEUT% 69.9 % (42.2-75.2); PLT 270 X1000 (130-400); RDW 15.9 % (11.5-14.5)
[2019-05-21 01:28] LABS: AGAP 17; BUN 4 mg/dL (8-22); CALCIUM 7.6 mg/dL (8.8-10.2); CHLORIDE 100 mmol/L (98-107); COSMO 280; ESTIMATED GFR > 60; GLUCOSE 173 mg/dL (70-104); POTASSIUM 4.2 mmol/L (3.5-5.1); SODIUM 140 mmol/L (136-145); TCO2 23 mmol/L (25-35)
[2019-05-21] MEDS: POTASSIUM CHLORIDE 20% LIQUID PO PRN ×2 (02:03→06:29)
[2019-05-21] MEDS: ZOSYN 2.25 GM in NS 50 ML IV SCH ×4 (02:37→20:49)
[2019-05-21] MEDS: D5 1/2 NS 1,000 ML IV SCH (04:44)
[2019-05-21 04:49] LABS: BASO# 0.02 X1000 (0.0-0.2); BASO% 0.3 % (0.0-0.8); EOS# 0.02 X1000 (0.0-0.7); EOS% 0.3 % (0.0-10.0); HEMATOCRIT 35.8 % (37.0-47.0); HEMOGLOBIN 11.3 g/dL (12.0-16.0); LYMPH# 1.96 X1000 (1.2-3.4); LYMPH% 25.1 % (20.5-51.1); MCH 29.8 PG (27-31); MCHC 31.6 g/dL (33-37); MCV 94.5 FL (81-99); MONO# 0.54 X1000 (0.11-0.59); MONO% 6.9 % (1.7-9.3); MPV 8.8 FL (7.4-10.4); NEUT# 5.28 X1000 (1.4-6.5); NEUT% 67.4 % (42.2-75.2); PLT 234 X1000 (130-400); RBC 3.79 XMIL (4.2-5.4); RDW 15.7 % (11.5-14.5); WBC 7.82 X1000 (4.8-10.8)
[2019-05-21] MEDS: 1/2 NS 1,000 ML IV SCH ×2 (05:33→08:19)
[2019-05-21 05:35] LABS: AGAP 11; BUN 4 mg/dL (8-22); CHLORIDE 100 mmol/L (98-107); COSMO 278; CREATININE 0.9 mg/dL (0.5-0.9); ESTIMATED GFR > 60; GLUCOSE 169 mg/dL (70-104); POTASSIUM 4.6 mmol/L (3.5-5.1); SODIUM 139 mmol/L (136-145); TCO2 28 mmol/L (25-35)
[2019-05-21] MEDS: ERYTHROMYCIN IV SCH (05:39)
[2019-05-21] MEDS: NS IV SCH (05:39)
[2019-05-21] MEDS: ZYVOX 600 MG/D5W 600 MG/300 ML IVPB IV SCH (06:29)
--- NOTE | 2019-05-21 07:58 | EKG Report ---
Test Performed on : 05/19/2019 5:03:13 PM Test Reason : ED. NO EKG ORDER FOR MUSE Blood Pressure : / mmHG Vent. Rate : 148 BPM Atrial Rate : 148 BPM P-R Int : 112 ms QRS Dur : 074 ms QT Int : 344 ms P-R-T Axes : 060 061 054 degrees QTc Int : 540 ms Sinus tachycardia. Cannot rule out Anterior infarct , age undetermined Abnormal ECG When compared with ECG of 18-MAR-2019 23:20, QRS axis shifted left Criteria for Inferior infarct are no longer present T wave inversion now evident in Inferior leads Nonspecific T wave abnormality has replaced inverted T waves in Lateral leads Unconfirmed Result
[2019-05-21] MEDS: LANTUS INSULIN SUBQ SCH (08:19)
--- NOTE | 2019-05-21 08:23 | PROGRESS NOTE ---
DATE: 05/21/2019 SUBJECTIVE: This patient seems to be more stable. Her DKA has resolved. I will transfer this patient to the floor. I will remove the Viveros catheter. I have discontinued the Zyvox, and I will continue with Zosyn, but hopefully this can be stopped in 1 or 2 days. This patient came in really dehydrated and with a leukocyte count of 15, which is probably reactive, but since she is an IV drug user, I requested a blood culture that has been negative so far. She received around 45 units of insulin in the past 24 hours. I will start this patient on Lantus 35 units and sliding scale insulin. She can be transferred to the floor. OBJECTIVE: Vital Signs: Temperature 98.4 degrees, pulse 106, respiratory rate 17, blood pressure 151/78, oxygen saturation 97% on room air. HEENT: Head normocephalic. No trauma. PERRLA. Neck: Supple. No JVD. No masses. Central trachea. Chest: Clear to auscultation. No wheezing. No rales. Abdomen: Soft. Some tenderness to palpation at the level of the epigastric and periumbilical area. Positive bowel sounds. Extremities: No edema, no clubbing, no cyanosis. She has multiple needle dowling on her extremities, and they were there before she came to the hospital. Neurological: The patient is sleepy, but arousable. She is answering my questions. She is oriented, but really sleepy. LABORATORY DATA: WBC 7.8, hemoglobin 11.3, hematocrit 35.8, platelets 234,000. Sodium 139, potassium 4.6, chloride 100, bicarbonate 28, BUN 4, creatinine 0.9, glucose 169, calcium 8. Phosphorus 2.5, magnesium 1.9. ASSESSMENT AND PLAN: 1. Diabetic ketoacidosis, resolved, likely due to medical noncompliance. Hemoglobin A1c upon admission was 10.7. The diabetic ketoacidosis has resolved. I will put this patient back on long-acting insulin and sliding scale insulin, and she will be transferred to the medical floor. 2. Gastroesophageal reflux disease with coffee-grounds emesis. Continue proton pump inhibitor. Likely due to Esthela-Cole tear. We have consulted Gastroenterology Department to keep an eye on this patient. 3. Nausea and vomiting. As above. 4. History of gastroparesis. Aware. I will put this patient on a diet to see how she does. 5. Drug abuse, especially amphetamine intravenously. This patient has been highly advised against drug use, especially intravenous drug use. I requested blood cultures, and they are negative. If the blood culture comes back positive, we need to get an echocardiogram, and also Infectious Disease Department to evaluate this patient. 6. Medical noncompliance. Aware. 7. Uncontrolled type 1 diabetes, as per #1. She seems to be doing better. She will be transferred to the floor with long-acting insulin and sliding scale insulin with pattern of blood sugar. I will continue the Zosyn for 1 more day, and I already stopped the Zyvox. Blood culture is negative so far, but since she is an intravenous drug users, we need to keep an eye on that. I do not hear any new murmur though. I believe this patient can be discharged in the next 48 hours. I requested Physical Therapy to evaluate this patient. cc: Dash Velarde MD
[2019-05-21] MEDS: PROTONIX IV SCH ×2 (12:00→23:05)
[2019-05-21] MEDS: HUMULIN R SUBQ SCH ×3 (12:12→20:51)
--- NOTE | 2019-05-21 12:19 | GASTROENTEROLOGY CONSULTATION ---
DATE: 05/21/2019 REASON FOR CONSULTATION: Nausea, vomiting, and hematemesis. HISTORY OF PRESENT ILLNESS: Ms. Hu is a 28-year-old, female who has a history of type 1 diabetes and gastroparesis. The patient presented to the emergency room on 05/19/2019 with complaints of nausea and vomiting, with coffee-ground emesis. On admission her blood sugars were 789 and today it is 169. She was found to be in DKA. Today, the patient complained of nausea, abdominal pain and chest pain when she eats. She has denied any vomiting. Her chest x-ray on 05/19 was stable, on 05/20 was stable. She also had an elbow x-ray done that showed no mago abnormalities. Patient mentioned never having an EGD or a Colonoscopy before. Patient has denied any alcohol or drug use, but her labs were positive for presumptive amphetamine and large level of acetone. PAST MEDICAL HISTORY: Diabetes type 1, anxiety, gastroparesis, GERD, and history of GI bleeds. PAST SURGICAL HISTORY: Patient has denied any surgical procedures. SOCIAL HISTORY: The patient is . She has 2 kids. She smokes a half a pack of cigarettes daily. She has denied any alcohol or illicit drug abuse. FAMILY HISTORY: No significant GI malignancies. ALLERGIES: The patient is allergic to sulfa and Bactrim HOME MEDICATIONS: Lantus SoloStar 40 units at bedtime, NovoLog FlexPen 10 units a.c., and Augmentin 875/125 mg 1 tablet twice a day. REVIEW OF SYSTEMS: As per HPI. Otherwise, 12 point review of systems is negative. PHYSICAL EXAMINATION: Vital Signs: Temperature 98.5 degrees, pulse 103, respirations 12, blood pressure 130/77, oxygen saturation 97%. She is on room air. Her weight is 134 pounds. BMI is 22.4 kg/m2. General: Patient is alert, oriented x3. Sleepy, drowsy, reluctant in answering questions. HEENT: Pale conjunctivae. No icterus. PERRL. Neck: Supple. Lungs: Clear to auscultation in the anterior pimentel. Cardiovascular: Patient is tachycardic. Abdomen: Soft. nondistended, Generalized tenderness. Active bowel sounds heard in all 4 quadrants. Extremities: No clubbing, no cyanosis, no edema. Pedal pulses 2+ present bilaterally. Neurologic: She is alert, oriented x3. Nonfocal. Cranial nerves 2-12 grossly intact. LABORATORY DATA: WBCs are 7.82, RBCs 3.79, hemoglobin 11.3, hematocrit 35.8, platelet count is 234,000. Sodium 137, potassium 4.6, chloride 100, carbon dioxide 28, anion gap 11, BUN 4, creatinine is 0.9, glucose is 169, calcium 8.0, phosphorus is 2.5, magnesium is 1.9. Urinalysis on 05/19/2019 showed trace of protein, greater than 1000 glucose, small amount of bilirubin. Toxicology report showed presumptive amphetamine and acetone level was large. The patient's chest x-ray on 05/19/2019 showed stable chest. Her elbow x-ray showed no acute bony abnormalities and a chest x-ray on 05/20/2019 showed stable chest. IMPRESSION AND PLAN: 1. Diabetic ketoacidosis. 2. GERD 3. Coffee-grounds emesis.Stable Hematocrit for now. 4. Nausea and vomiting. 5. Drug abuse. 6. Type 1 diabetes. 7. Gastroparesis PLAN: Ms. Hu is a 28 year old female with the history of type I diabetes and gastroparesis. GI has been consulted for her N/V and coffee-ground emesis. Patient is currently receiving antiemetic, Zofran 4 mg every 6 hours as needed for her nausea and vomiting. She is on a GI prophylaxis Protonix 40 mg IV twice a day. She is receiving IV fluids, half-normal saline at 50 mls/hr. For her diabetes, she is on Lantus insulin 35 units and Humulin as per sliding scale. The patient is on antibiotic, Zosyn. Patient has currently denied noticing any coffee-ground emesis, her H & H is 11.3 and 35.8, patient is hemodynamically stable. We will continue to monitor the patient. Currently, we are holding on doing any of the procedures until the patient's blood sugar levels are under control. This plan was discussed with Dr. Garcias. Thank you for your consult. Please call us for any further questions or concerns. Dictated by DAPHNE Rosado for Kieran Garcias MD cc: Kieran Garcias MD I have seen and examined the patient myself and I agree with the above plan of care. I have discussed the above with the patient and all questions were answered. Please call us with any further questions. MTDD
[2019-05-21] MEDS: ATIVAN IV PRN ×2 (13:36→20:02)
[2019-05-21] MEDS: TYLENOL PO PRN ×2 (17:06→20:52)
[2019-05-22] MEDS: ZOSYN 2.25 GM in NS 50 ML IV SCH ×4 (02:02→20:58)
[2019-05-22] MEDS: ATIVAN IV PRN ×3 (04:15→22:02)
[2019-05-22] MEDS: HUMULIN R SUBQ SCH ×4 (06:42→20:57)
[2019-05-22] MEDS: 1/2 NS 1,000 ML IV SCH (07:05)
[2019-05-22 08:30] LABS: BASO# 0.02 X1000 (0.0-0.2); BASO% 0.5 % (0.0-0.8); EOS# 0.05 X1000 (0.0-0.7); EOS% 1.3 % (0.0-10.0); HEMATOCRIT 36.8 % (37.0-47.0); HEMOGLOBIN 11.5 g/dL (12.0-16.0); LYMPH# 2.05 X1000 (1.2-3.4); LYMPH% 52.8 % (20.5-51.1); MCH 29.5 PG (27-31); MCHC 31.3 g/dL (33-37); MCV 94.4 FL (81-99); MONO# 0.25 X1000 (0.11-0.59); MONO% 6.4 % (1.7-9.3); NEUT# 1.51 X1000 (1.4-6.5); PLT 240 X1000 (130-400); WBC 3.88 X1000 (4.8-10.8)
[2019-05-22 09:14] LABS: AGAP 12; ALB/GLOB RATIO 0.9; ALBUMIN 2.5 g/dL (3.5-5.0); ALKALINE PHOSPHATASE 193 U/L (32-104); BUN 7 mg/dL (8-22); CALCIUM 8.3 mg/dL (8.8-10.2); CHLORIDE 97 mmol/L (98-107); COSMO 283; CREATININE 0.7 mg/dL (0.5-0.9); ESTIMATED GFR > 60; GLUCOSE 271 mg/dL (70-104); GOT 15 U/L (10-30); GPT 11 U/L (10-36); MAGNESIUM 1.7 mg/dL (1.5-2.7); PHOSPHORUS 3.8 mg/dL (2.7-4.5); POTASSIUM 4.1 mmol/L (3.5-5.1); SODIUM 138 mmol/L (136-145); TCO2 29 mmol/L (25-35); TOTAL BILIRUBIN 0.32 mg/dL (0.20-1.00); TOTAL PROTEIN 5.4 g/dL (6.3-8.3)
[2019-05-22] MEDS: LANTUS INSULIN SUBQ SCH (09:29)
--- NOTE | 2019-05-22 11:41 | GASTROENTEROLOGY PROGRESS NOTE ---
DATE: 05/22/2019 SUBJECTIVE: Ms. Hu is a 28-year-old female, resting in bed. She complained of feeling nauseated, but has denied any vomiting, and she said that whenever she eats, her chest is hurting. OBJECTIVE: Vital Signs: Temperature 98.6, pulse 94, respirations 20, blood pressure 129/59, oxygen saturation 97% on room air. Her weight is 134 pounds, BMI is 22.4 kg/m2. General: She is alert, oriented x3, and is sleepy. HEENT: Pale conjunctivae. No icterus. PERRL. Neck: Supple. Lungs: Clear to auscultation in the anterior pimentel. Cardiovascular: The patient is tachycardic. Abdomen: Soft, nontender, nondistended. Active bowel sounds heard in all 4 quadrants. Extremities: No clubbing, no cyanosis, no edema. Pedal pulses 2+ present bilaterally. Neurologic: She is alert, oriented x3. LABORATORY DATA: WBCs are 3.88, RBC 3.90, hemoglobin 11.5, hematocrit 36.8, platelet count is 240,000. Sodium 138, potassium 4.1, chloride 97, carbon dioxide 29, anion gap 12, BUN 7, creatinine 0.7, glucose 271, calcium 8.3. Phosphorus 3.8, magnesium 1.7. Total bilirubin 0.32, AST 15, ALT 11, alkaline phosphatase 193, albumin is 2.5. IMPRESSION AND PLAN: Diabetic Ketoacidosis GERD Coffee-ground emesis Nausea and Vomiting Drug abuse Type I diabetes Gastroparesis PLAN: Ms. Hu is a 28-year-old female with a history of type 1 diabetes and gastroparesis. Gastroenterology is following her for nausea, vomiting, and coffee-grounds emesis. We plan to do an EGD tomorrow. The patient is currently on IV fluid half-normal saline at 50 mL/h. She is receiving antiemetic, Zofran, for her nausea and vomiting and GI prophylaxis Protonix 40 mg twice a day. The patient is on Lantus and Humulin for her diabetes, and also receiving Zosyn. Discussed the risks, benefits, and alternatives of the procedure to the patient. The patient acknowledges understanding of the plan of care. Further plan of care will be based on the EGD findings. This plan was discussed with Dr. Bergeron. Please call us for any further questions or concerns. Dictated by DAPHNE Rosado for William Bergeron MD Physician Attestation I have seen and examined the patient. I have discussed and reviewed the note by Shalini SERNA and agree with findings and plan as documented. She has had several episodes of N/V with coffee ground emesis in the setting of DKA. She likely has component of gastroparesis. Continue supportive care with antibiotics, IVFs, PPI. AG is closed. Will plan for diagnostic EGD tomorrow. NPO after MN. MTDD
[2019-05-22] MEDS: PROTONIX IV SCH ×2 (11:47→23:56)
[2019-05-22] MEDS: SODIUM CHLORIDE 0.9% INJ SCH (11:56)
--- NOTE | 2019-05-22 19:47 | PROGRESS NOTE ---
DATE: 05/22/2019 SUBJECTIVE: This patient is lying in bed. She is complaining of generalized pain, especially her abdomen, epigastric area. Her DKA resolved. I have placed this patient back on insulin and sliding scale insulin as well. She has been scheduled for an EGD tomorrow. OBJECTIVE: Vital signs: Temperature 98.6 degrees, pulse 100, respiratory rate 20, blood pressure 129/95, oxygen saturation 99 on room air. HEENT: Head normocephalic, no trauma. PERRLA. Neck: Supple. No JVD. No masses. Central trachea. Chest: Clear to auscultation. No wheezing. No rales. Abdomen: Soft. Some tenderness to palpation at the level of the epigastric and periumbilical area. Positive bowel sounds. Extremities: No edema, no clubbing, no cyanosis. She has multiple needle dowling on her extremities, and they were there before she came to the hospital. Neurological examination: This patient is sleepy but arousable. She is answering my questions. She is oriented. LABORATORY DATA: WBC 3.8, hemoglobin 11.5, hematocrit 36.8, platelets 240,000. Sodium 138, potassium 4.1, chloride 97, bicarbonate 27, BUN 7, creatinine 0.7, glucose 271, calcium 8.3, phosphorus 3.8, magnesium 1.7. ASSESSMENT AND PLAN: 1. Diabetic ketoacidosis, resolved, likely due to medical noncompliance. Hemoglobin A1c upon admission was 10.7. 2. Gastroesophageal reflux disease with hematemesis. She will have an upper endoscopy tomorrow. 3. Nausea and vomiting, resolved. 4. History of gastroparesis, aware. 5. Drug abuse, especially amphetamine intravenously. This patient has been highly advised against drug use especially IV drug use. Blood cultures are negative. 6. Medical noncompliance, aware. 7. Uncontrolled type 1 diabetes as per #1. Today, I had a conversation with this patient about rehabilitation or going home once she is better, and she states that she does not feel safe at home, but then she did not give me any kind of information. I have requested an evaluation by director of social media marketing and the employment evaluator/case manager as well. I do believe she has some kind of problems with the . cc: Dash Velarde MD
[2019-05-22] MEDS: TYLENOL PO PRN (23:58)
[2019-05-23] MEDS: ZOSYN 2.25 GM in NS 50 ML IV SCH ×4 (01:55→20:44)
[2019-05-23] MEDS: 1/2 NS 1,000 ML IV SCH (05:09)
[2019-05-23] MEDS: HUMULIN R SUBQ SCH ×4 (06:43→20:46)
[2019-05-23] MEDS: SODIUM CHLORIDE 0.9% INJ SCH (06:44)
[2019-05-23 07:21] LABS: BASO# 0.01 X1000 (0.0-0.2); BASO% 0.3 % (0.0-0.8); EOS# 0.11 X1000 (0.0-0.7); EOS% 3.2 % (0.0-10.0); HEMATOCRIT 35.2 % (37.0-47.0); LYMPH% 52.6 % (20.5-51.1); MCH 29.2 PG (27-31); MCHC 31.3 g/dL (33-37); MCV 93.4 FL (81-99); MONO# 0.24 X1000 (0.11-0.59); MPV 8.7 FL (7.4-10.4); NEUT# 1.26 X1000 (1.4-6.5); NEUT% 36.9 % (42.2-75.2); PLT 236 X1000 (130-400); RBC 3.77 XMIL (4.2-5.4); RDW 14.5 % (11.5-14.5); WBC 3.42 X1000 (4.8-10.8)
[2019-05-23] MEDS ORDERED: XYLOCAINE-MPF 2% ONE (08:11)
[2019-05-23] MEDS ORDERED: DIPRIVAN 1% ONE (08:11)
[2019-05-23 08:14] LABS: AGAP 10; BUN 7 mg/dL (8-22); CALCIUM 8.2 mg/dL (8.8-10.2); CHLORIDE 99 mmol/L (98-107); COSMO 273; CREATININE 0.5 mg/dL (0.5-0.9); GLUCOSE 81 mg/dL (70-104); POTASSIUM 3.2 mmol/L (3.5-5.1); SODIUM 138 mmol/L (136-145); TCO2 29 mmol/L (25-35)
--- NOTE | 2019-05-23 08:57 | ENDOSCOPY OPERATIVE NOTE ---
[facility] ENDOSCOPY OPERATIVE NOTE , EGD PROCEDURE REPORT EXAM DATE: 05/23/2019 PATIENT NAME: Eugene Hu MR#: [id number] BIRTHDATE: 1990 ATTENDING: William Bergeron MD STATUS: inpatient [employer] TENDER: INDICATIONS: The patient is a 28 yr old female here for an EGD due to coffee-ground emesis, nausea, and vomiting. PROCEDURE PERFORMED: EGD w/ biopsy MEDICATIONS: Per Anesthesia ESTIMATED BLOOD LOSS: None CONSENT: The patient understands the risks and benefits of the procedure and understands that these r isks include, but are not limited to: sedation, allergic reaction, infection, perforation and/or bleeding. Alternative means of evaluation and treatment include, among others: physical exam, x-rays, and/or surgical intervention. The patient elects to proceed with this endoscopic procedure. DESCRIPTION OF PROCEDURE: During pre-op preparation period all mechanical and medical equipment was c hecked for proper function. Hand hygiene and appropriate measures for infection prevention was taken. After the risks, benefits and alternatives of the procedure were thoroughly explained, Informed consent was verified, confirmed and timeout was successfully executed by the treatment team. The patient was anesthetized with topical anesthesia and the [id number] ([id number]) endoscope was introduced through the mouth and advanced to the second portion of the duoden um. Retroflexion was performed in the stomach and revealed a hiatal hernia. The gastroscope was then slowly withdrawn and removed. The patient's toleration of the procedure was excellent. ESOPHAGUS: Esophagitis was found in the mid esophagus and distal esophagus. Esophagitis was LA Class D: Mucosal breaks involving more than 75% of esophageal circumference. A biopsy was performed using cold forceps. Sreekanth ple sent for histology. The z-line was noted at 38cm from the incisors. The z-line appeared irregular. A 2 cm hiatal hernia was noted. STOMACH: The stomach was normal. A biopsy was performed using cold forceps. Sample sent for histolo gy. DUODENUM: The duodenum was normal. ADVERSE EVENTS: There were no complications. IMPRESSIONS: 1. LA Grade D esophagitis in the mid esophagus and distal esophagus; biopsy was per formed 2. The z-line was noted at 38cm from the incisors 3. 2 cm hiatal hernia 4. The stomach was normal; biopsy was performed 5. The duodenum was normal RECOMMENDATIONS: 1. Await biopsy results 2. Recommend pantoprazole 40mg PO BID x 3 months, repeat EGD in 3 months to assess for healing 3. Diabetic diet 4. Avoid NSAIDs REPEAT EXAM: Return in 3 months for EGD. William Bergeron MD eSigned: William Bergeron MD 05/23/2019 8:56 AM CC: CPT CODES: 51703 Upper gastrointestinal endoscopy including esophagus, stomach, and either the du odenum and/or jejunum as appropriate; with biopsy, single or multiple ICD CODES: 553.3 Diaphragmatic hernia without mention of obstruction or gangrene 530.10 Esophagitis,unspecified 787.03 Vomiting,unspecified 787.02 Nausea The ICD and CPT codes recommended by this software are interpretations from the data that the [facility] staff has captured with the software. The verification of the translation of this report to the ICD and CPT co yimi and modifiers is the sole responsibility of the health care institution and practicing physician where this report was generated. [employer] will not be held responsible for the validity of the ICD and CPT codes i ncluded on this report. [employer] assumes no liability for data contained or not contained herein. CPT is a registered tra demark of the [employer]. PATIENT NAME: Eugene Hu MR#: [id number]
[2019-05-23] MEDS ORDERED: KLOR-CON PO ONE (09:06)
[2019-05-23] MEDS: TYLENOL PO PRN ×2 (09:56→19:21)
[2019-05-23] MEDS: LANTUS INSULIN SUBQ SCH (11:12)
[2019-05-23] MEDS: ATIVAN IV PRN ×2 (12:35→20:47)
--- NOTE | 2019-05-23 14:20 | PROGRESS NOTE ---
DATE: 05/23/2019 SUBJECTIVE: This patient is lying in bed. She had an endoscopy done today. She is really sleepy. I am not quite sure if this is due to the sedation that she received during the EGD. She is complaining of chest pain/discomfort and she seems to be a little bit nauseated but she is hungry as well. As per Dr. Bergeron, she does have a severe esophagitis, grade D. She has been placed on treatment with proton pump inhibitors twice a day and she needs to follow up with Gastroenterology Department in the future. Hopefully tomorrow I will discharge this patient in the morning. OBJECTIVE: Vital Signs: Temperature 97.9 degrees, pulse 94, respiratory rate 22, blood pressure 145/94, oxygen saturation 99 on room air. HEENT: Head normocephalic, no trauma. PERRLA. Neck: Supple. No JVD. No masses. Central trachea. Chest: Clear to auscultation. No wheezing. No rales. Abdomen: Soft. Some tenderness to palpation at the level of the epigastric and periumbilical area. Positive bowel sounds. Extremities: No edema, no clubbing, no cyanosis. She has multiple needle dowling on her extremities. Neurological: The patient is sleepy but arousable but she is more sleepy than normal. She is answering my questions. She is oriented. LABORATORY DATA: WBC 3.4, hemoglobin 11, hematocrit 35.2, platelet 236,000. Sodium 138, potassium 3.2, chloride 99, bicarbonate 29, BUN 7, creatinine 0.5, glucose 81, calcium 8.2. ASSESSMENT AND PLAN: 1. Diabetic ketoacidosis, resolved, likely due to medical noncompliance. Hemoglobin A1c upon admission was 10.7. 2. Gastroesophageal reflux disease with hematemesis, status post upper endoscopy that showed severe esophagitis, grade D. 3. Nausea and vomiting, resolved. She is still having some nausea though. 4. History of gastroparesis. Aware. 5. Drug abuse, especially amphetamine intravenously. This patient has been highly advised against drug use, especially IV drug use. Blood cultures are negative. 6. Medical noncompliance. Aware. 7. Uncontrolled type 1 diabetes, as per #1. 8. Severe grade D esophagitis. Continue with proton pump inhibitor twice a day. 9. Hypokalemia. I will replace the potassium. cc: Dash Velarde MD
[2019-05-23] MEDS: PROTONIX PO SCH (20:46)
[2019-05-23] MEDS ORDERED: NORCO-5 PO ONE (21:38)
[2019-05-24] MEDS ORDERED: ORAJEL MAXIMUM ST 20% GEL TOP PRN (01:31)
[2019-05-24] MEDS: ZOSYN 2.25 GM in NS 50 ML IV SCH ×2 (02:42→09:15)
[2019-05-24] MEDS: 1/2 NS 1,000 ML IV SCH (05:37)
[2019-05-24] MEDS: HUMULIN R SUBQ SCH ×2 (06:08→11:38)
[2019-05-24 08:34] VITALS: BP 128/79
[2019-05-24] MEDS: LANTUS INSULIN SUBQ SCH (09:15)
[2019-05-24] MEDS: PROTONIX PO SCH (09:15)
[2019-05-24] MEDS: ATIVAN IV PRN (09:17)
[2019-05-24] MEDS ORDERED: GLUCOPHAGE PO SCH (09:45)
[2019-05-24] MEDS ORDERED: MIRALAX PO SCH (10:30)
--- NOTE | 2019-05-24 11:47 | GASTROENTEROLOGY PROGRESS NOTE ---
DATE: 05/24/2019 SUBJECTIVE: Ms. Hu is a 28-year-old female, resting in bed, complained of being nauseated. The patient also denied having any bowel movements since 05/22/2019. OBJECTIVE: Vital Signs: Temperature 98.3 degrees, pulse 97, respirations 21, blood pressure 128/79, oxygen saturation 98% on room air. The patient's weight is 134 pounds. BMI is 22.4 kg/m2. General: She is alert and oriented x3, and in no acute distress. HEENT: Pale conjunctivae. No icterus. PERRL. Neck: Supple. Lungs: Clear to auscultation in the anterior pimentel. Cardiovascular: The patient is tachycardic. Abdomen: Soft, nontender, nondistended. Active bowel sounds heard in all 4 quadrants. Extremities: No clubbing, no cyanosis, no edema. Pedal pulses 2+ present bilaterally. Neurologic: She is alert and oriented x3. LABORATORY DATA: Her hematology is from 05/23/2019. WBC is 3.42, RBC 3.77, hemoglobin 11.0, hematocrit is 35.2, platelet count is 236,000. The patient's chemistries are from 05/23/2019. Sodium is 138, potassium is 3.2, chloride 99, carbon dioxide 29, anion gap 10, BUN 7, creatinine 0.5, glucose 81, calcium 8.2. IMPRESSION AND PLAN: Esophagitis Hiatal Hernia Diabetic Ketoacidosis GERD Coffee-ground emesis Nausea and vomiting Drug abuse Type 1 diabetes Gastroparesis PLAN: Ms. Hu is a 28-year-old female with a history of type 1 diabetes and gastroparesis. GI is following her for nausea and vomiting and her coffee- grounds emesis. An EGD was done yesterday, she had LA grade D esophagitis in the mid esophagus and distal esophagus, biopsies were performed, and 2 cm hiatal hernia. Stomach was normal, but biopsies were performed, and the duodenum was normal. The patient is currently on GI prophylaxis, Protonix 40 mg p.o. twice a day. We have started the patient on MiraLAX 17 g BID since she has not been having a bowel movement from 05/22/2019 onwards. The patient needs a return followup as an outpatient for a repeat endoscopy in 4 to 6 weeks. She has a discharge order to go home today. We will continue to monitor the patient and follow the plan of care per PCP. This plan was discussed with Dr. Garcias. Please call us for any further questions or concerns. Dictated by DAPHNE Rosado for Kieran Garcias MD cc: Kieran Garcias MD I have seen and examined the patient myself and I agree with the above plan of care. I have discussed the above with the patient and all questions were answered. Please call us with any further questions. GM
--- NOTE | 2019-05-25 13:59 | DISCHARGE SUMMARY ---
ADMISSION DATE: 05/19/2019 DISCHARGE DATE: 05/24/2019 DISCHARGE DIAGNOSES: 1. Diabetic ketoacidosis, resolved. 2. Gastroesophageal reflux disease with hematemesis. 3. Severe esophagitis, grade D. 4. Nausea and vomiting, resolved. 5. History of gastroparesis. 6. Drug abuse especially intravenous amphetamine. 7. Uncontrolled type 1 diabetes. 8. Electrolyte imbalance. 9. Medical noncompliance. PROCEDURES PERFORMED: 1. Chest x-ray dated 05/19/2019. Impression: Stable chest. 2. Elbow x-ray dated 05/19/2019. Impression: No acute bony abnormality. 3. Chest x-ray dated 05/20/2019. Impression: Stable chest. 4. Endoscopic procedure dated 05/23/2019. Impression: Grade D esophagitis in the mid esophagus and distal esophagus. HOSPITAL COURSE: A 28-year-old female with a past medical history of uncontrolled type 1 diabetes, anxiety, gastroparesis, GERD, prior GI bleed with no outpatient follow-up. Presented to the emergency department and was admitted on 05/19/2019, she came in complaining of nausea and vomiting for 2 days and coffee-grounds emesis. She was really lethargic at the beginning of this hospitalization. Her blood sugar was 789. She was found to be in DKA and we put this patient on DKA protocol. We evaluated this patient in the emergency department. We sent this patient to the ICU for treatment, she received a lot of fluids because of her severe dehydration, she came in with an acute kidney injury and actually her creatinine was 2.0 and at the moment of discharge 0.5, she had a positive urine toxicology that showed amphetamine, and the patient states that she has been using on and off IV amphetamines. We did a blood culture on 05/19/2019 that did not show any abnormality, the patient was improving slowly on a daily basis. Because of the hematemesis and coffee-grounds emesis, she was scoped and they found this patient to have severe esophagitis grade D, they recommended PPIs twice a day and follow up as an outpatient. The patient seems to be doing much better. At some point during this hospitalization she states that she was not feeling safe at home so the pediatric social worker took over and gave her all the placement/shelters that she can go and also she provided the information and the phone numbers to call for this kind of problems. Apparently, as per the patient, she has been having problems with the or ex- , I am not sure. She did not want a talk to me about it. Today, this patient is feeling better. She has been sleepy. No signs of withdrawal. As per the patient, she uses IV drugs once in a while but not frequently, she never had any kind of withdrawal symptoms during this hospitalization, she seems to be hydrated and she is tolerating p.o. and ambulating good with physical therapy. She will be discharged. I asked her if she is going to be able to buy her medications and she states that she is going to be able to do that. I told her that she needs she needs to be away from drugs and also she needs to take her medications as prescribed. Otherwise, she is going to have a bad outcome, at the moment of discharge the patient was stable. OBJECTIVE: Vital Signs: Temperature 98.3 degrees, pulse 97, respiratory rate 21, blood pressure 128/79. Oxygen saturation 98 on room air. HEENT: Head normocephalic, no trauma. PERRLA. Neck: Supple. No JVD. No masses. Central trachea. Chest: Clear to auscultation. No wheezing. No rales. Abdomen: Soft. Mild tenderness to palpation at the level of the epigastric area. Positive bowel sounds. Extremities: No edema. No clubbing. No cyanosis. She has multiple needle dowling on her extremities, and actually some of then were there before coming to the hospital. Neurological: This patient is sleepy, but arousable. She is oriented x3. She is following commands. She is able to ambulate by herself and eat by herself. LABORATORY: Lab work from yesterday: WBC 3.4, hemoglobin 11, hematocrit 35.2, platelets 236,000. Sodium 138, potassium 3.2, chloride 99, bicarbonate 29, BUN 7, creatinine 0.5, glucose 81, calcium 8.2. DISCHARGE MEDICATIONS: NovoLog 10 units subcu before meals, Lantus 30 units subcutaneous at bedtime, metformin 500 mg p.o. b.i.d., and pantoprazole 40 mg p.o. b.i.d. TIME DISCHARGING THIS PATIENT: 35 minutes. cc: Dash Velarde MD
== END 2019-05-24 15:00 | disposition home or self-care (01) | DRG 637 ==
LOC: SUPCPDRO → ED 07:07 → EDIPHOLD 13:02 → ICU 16:24 → 3N 05-21 19:42
PROVIDERS: ATTEND Internal Medicine

== ENCOUNTER 2019-05-30 13:37 | Inpatient (IN) ==
[2019-05-30] MEDS ORDERED: POTASSIUM CHLORIDE 10% LIQUID PO PRN (13:45)
[2019-05-30] MEDS ORDERED: NS 1,000 ML IV ONE (13:45)
[2019-05-30] MEDS ORDERED: POTASSIUM CHLORIDE 20 MEQ/SWI 20 MEQ/100 ML IVPB IV PRN ×2 (13:45)
[2019-05-30] MEDS ORDERED: SODIUM PHOSPHATE 30 MMOL in D5W 250 ML IV PRN (13:45)
[2019-05-30] MEDS ORDERED: MAGNESIUM SULFATE 2 GM/S.W.I. 2 GM/50 ML IVPB IV PRN (13:45)
[2019-05-30] MEDS ORDERED: HUMULIN R 100 UNIT in NS 100 ML IV SCH ×2 (13:45→17:37)
[2019-05-30] MEDS ORDERED: HUMULIN R IV ONE (13:45)
[2019-05-30] MEDS ORDERED: D50W SYRINGE IV PRN ×3 (13:45→17:37)
[2019-05-30] MEDS ORDERED: SODIUM BICARBONATE 8.4% 100 MEQ in STERILE WATER INJ. 500 ML IV PRN (13:45)
[2019-05-30] MEDS ORDERED: POTASSIUM CHLORIDE 20% LIQUID PO PRN (13:45)
--- NOTE | 2019-05-30 13:58 | PROVIDER DOCUMENTATION ---
HPI-General Adult - General Stated Complaint: HIGH BLOOD SUGAR Time Seen by Provider: 05/30/19 13:38 Source: patient, EMS Allergies/Adverse Reactions: Patient Allergies Allergy/AdvReac Type Severity Reaction Status Date / Time sulfamethoxazole Allergy Intermediate HIVES Verified 05/30/19 14:28 [From Bactrim] trimethoprim [From Bactrim] Allergy Intermediate HIVES Verified 05/30/19 14:28 Home Medications: Home Medication List Medication Instructions Recorded Confirmed Last Taken Type Insulin Aspart [Novolog Flexpen] 10 units SQ AC #1 insuln.pen 05/24/19 Unknown Rx Insulin Glargine,Hum.rec.anlog 30 unit SQ HS #1 insuln.pen 05/24/19 Unknown Rx [Lantus Solostar] Metformin [Glucophage] 500 mg PO BID CC #60 tab 05/24/19 Unknown Rx Pantoprazole [Protonix] 40 mg PO BID #120 tab 05/24/19 Unknown Rx - History of Present Illness -Gen Adult Nature of Presenting Problems: Pt. is 28 yof that presents by EMS for c/o hyperglycemia. Pt. has been in and out of consiousness and EMS reports the finger stick just read high. No other complaints noted. Location of Pain/Injury: reports: none. denies: head, face, mouth, neck, chest, upper extremity, hand(s), abdomen, back, pelvis, genitalia, lower extremity, feet, upper body, lower body, generalized, other Pain Radiation: reports: no radiation. denies: arm(s), back, buttocks, chest, epigastric, feet, groin, jaw, flank (L), legs (lower), LLQ, LUQ, neck, periumbilical, flank (R), RLQ, RUQ, shoulder(s), scapula, scrotal, sternal notch, suprapubic, legs (upper), urethral, vaginal, other Quality of Pain: reports: none. denies: aching, pressure, tightness Severity: reports: moderate. denies: mild, severe Onset/Duration: reports: unsure Timing: reports: still present. denies: improving, intermittent, getting worse Context/Activities at Onset: reports: none. denies: light activity, moderate activity, vigorous activity, recent emotional stress, recent physical stress, recent trauma history, possible bad food, cold exposure, eating, out of country travel, rest, sleep, sexual activity, other Modifying Factors: improves with: nothing Associated Symptoms: reports: nausea. denies: denies symptoms, anxiety, arm pain, back/neck pain, chest pain, constipation, cough, diaphoresis, diarrhea, dizziness, EENT symptoms, fatigue, fever/chills, genitourinary problems, headaches, heartburn, joint pain, loss of appetite, malaise, muscle aches, sinus congestion/drainage, rash, seizure, shortness of breath, sensory/motor loss, pain with inspiration, swelling/mass in abdomen, syncope, vomiting, weakness, trouble walking, other Similar Symptoms Previously?: Yes Recently seen or treated by another doctor?: Yes - Diabetes Related Context Context: reports: high blood sugar, change in mental status Review of Systems - Adult - REVIEW OF SYSTEMS - ADULT Constitutional: reports: no symptoms reported Eyes: reports: no symptoms reported Ears, Nose, Mouth & Throat: reports: no symptoms reported Cardiovascular: reports: no symptoms reported Respiratory: reports: no symptoms reported Gastrointestinal: reports: see HPI, nausea. denies: diarrhea, frequent heartburn, vomiting Genitourinary: reports: no symptoms reported Musculoskeletal: reports: no symptoms reported Integumentary: reports: no symptoms reported Neurological: reports: no symptoms reported Psychiatric: reports: no symptoms reported Endocrine: reports: see HPI, increased thirst, polyuria. denies: excessive sweating, cold intolerance, heat intolerance Past History - Adult - PAST MEDICAL HISTORY-ADULT Review of Records: reports: Old Records Reviewed, Nursing Assessment Review, Medications Reviewed, Social history reviewed & non-contributory. Major Childhood Illnesses: reports: denies history Cardiovascular: reports: CHF Respiratory: reports: denies history Gastrointestinal: reports: denies history Obstetrical/Gynecological: reports: denies history Genitourinary: reports: denies history Musculoskeletal: reports: denies history Neurological: reports: denies history Psychiatric: reports: denies history Endocrine/Immune: reports: Diabetes Other Conditions: reports: denies history - PRIOR SURGERIES/PROCEDURES Surgical/Procedure History: reports: BTL, - PRIOR HOSPITALIZATIONS Prior Hospitalizations: reports: none - IMMUNIZATION STATUS Childhood Immunizations: See Nurse Assessment Flu Vaccine: See Nurse Assessment - FAMILY HISTORY Family History: reviewed, not pertinent - SOCIAL HISTORY Smoking: quit less than 1 year, greater than 1 pack/day Provider spent 3-5 mins advising pt. on dangers of tobacco.: Discussed manners to quit use, and f/u contacts for add'l counseling. Physical Exam-General - PHYSICAL EXAM-ADULT Initial Vital Signs Reviewed: Yes - CONSTITUTIONAL General Appearance: moderate distress, thin, lethargic. negative: anxious, slow to respond, obtunded, combative - EYES Eyes: PERRL/EOMI, pink conjunctivae - HEAD, EARS, NOSE, MOUTH & THROAT HENMT: normocephalic/atraumatic, moist mucous membranes - NECK Neck: non-tender, full range of motion, supple, normal inspection - RESPIRATORY Respiratory: lungs clear, normal breath sounds - CARDIOVASCULAR Cardiovascular: normal peripheral pulses, regular rate, rhythm, no edema - GASTROINTESTINAL (ABDOMEN) Abdominal Exam: normal bowel sounds, non tender, soft - LYMPHATIC Lymphatic: no adenopathy - MUSCULOSKELETAL Back Exam: normal inspection Extremity: normal range of motion, normal inspection Peripheral Pulses: radial (R): 2+, radial (L): 2+ - SKIN Integumentary: normal color, normal turgor, warm/dry - NEUROLOGIC Neurologic: grossly normal, no motor/sensory deficits - PSYCHIATRIC Psych/Mental Status: negative: anxious, disheveled, paranoid, tearful Progress - PLAN OF CARE/RESULTS Progress/Plan/Lab Results: Orders Category Date Time Status Cardiac Monitoring DIRECTED Care 05/30/19 13:45 Active ED: Urine Bedside NOW Care 05/30/19 13:45 Active FSBS/Accucheck Result Q15M Care 05/30/19 13:45 Active FSBS/Accucheck Result Q1H Care 05/30/19 13:45 Active Hypoglycemia/FSBS <50 or Range of 50-70 PRN Care 05/30/19 13:45 Active Notify Physician ORDERED Care 05/30/19 13:45 Active Saline Loc DIRECTED Care 05/30/19 13:45 Active Saline Loc NOW Care 05/30/19 13:45 Active Vital Signs Order Q1H Care 05/30/19 13:45 Active ABG [RESP] Routine Lab 05/30/19 13:45 Ordered ACETONE SERUM [CHEM] Stat Lab 05/30/19 13:45 Uncollected CBC WITH NO DIFF [HEME] Stat Lab 05/30/19 13:45 Uncollected CK PROFILE [SP CHEM] Stat Lab 05/30/19 13:45 Uncollected COMPREHENSIVE METABOLIC PANEL [CHEM] Stat Lab 05/30/19 13:45 Uncollected LACTATE, PLASMA [CHEM] Stat Lab 05/30/19 13:45 Uncollected MAGNESIUM [CHEM] Stat Lab 05/30/19 13:45 Uncollected PHOSPHORUS [CHEM] Stat Lab 05/30/19 13:45 Uncollected POTASSIUM [CHEM] Timed Lab 05/30/19 13:45 Uncollected TROPONIN T Stat Lab 05/30/19 13:45 Uncollected URINALYSIS [URINALYSIS] Stat Lab 05/30/19 13:45 Uncollected URINE DRUG SCREEN Stat Lab 05/30/19 13:45 Uncollected 0.9% Sodium Chloride Inj [Ns] 1,000 ml Med 05/30/19 13:45 Ordered IV 500 mls/hr 0.9% Sodium Chloride Inj [Ns] 1,000 ml Med 05/30/19 13:45 Active IV 999 mls/hr 0.9% Sodium Chloride Inj [Ns] 100 ml Med 05/30/19 13:45 Ordered Insulin Human Regular [Humulin R] 100 unit IV Per Protocol mls/hr Dextrose 50% Syringe [D50w Syringe] Med 05/30/19 13:45 Ordered 25 ml IV PRN PRN Dextrose 50% Syringe [D50w Syringe] Med 05/30/19 13:45 Ordered 50 ml IV PRN PRN Insulin Human Regular [Humulin R] Med 05/30/19 13:45 Discontinued 10 unit IV ONCE ONE Magnesium Sulfate 2 gm/S.w.i. Med 05/30/19 13:45 Ordered 2 gm in 50 ml IV ONCE PRN Potassium Chloride 10% Liquid Med 05/30/19 13:45 Ordered 20 meq PO ONCE PRN PRN Potassium Chloride 20 Meq/Swi Med 05/30/19 13:45 Ordered 20 meq in 100 ml IV ONCE PRN Potassium Chloride 20 Meq/Swi Med 05/30/19 13:45 Ordered 20 meq in 100 ml IV ONCE PRN Potassium Chloride 20% Liquid Med 05/30/19 13:45 Ordered 40 meq PO ONCE PRN PRN Sodium Bicarbonate 8.4% 100 meq Med 05/30/19 13:45 Ordered Water, Sterile Inj [Sterile Water Inj] 500 ml IV ONCE PRN Sodium Phosphate 30 mmol Med 05/30/19 13:45 Ordered Dextrose 5%-Water Inj [D5w] 250 ml IV ONCE PRN Hypoglycemia Stat Oth 05/30/19 13:45 Ordered EKG [EKG] Routine Ther 05/30/19 13:45 Ordered Laboratory Tests 05/30/19 14:25 Specimen Type ARTERIAL Sample Site L RADIAL pH 7.07 L* pCO2 8 L* pO2 155 H HCO3 5.1 L Base Excess -25.4 L Oxyhemoglobin 97.8 ABG O2 Sat (Calculated) 20.5 ABG O2 Saturation 99.9 ABG Carboxyhemoglobin 1.40 ABG Methemoglobin 0.7 Reid Test YES A-a O2 Difference -15.0 Total Hemoglobin 14.7 Lactate 2.60 H Blood Gas Modality ROOM AIR FiO2 % 21.0 Discussed results and plan of care with patient. Patient agrees with plan and verbalizes understanding. - EKG 1 Time of EKG reading by physician:: 14:53 EKG Read and Signed by:: Jacob Mata EKG Interpretation (*Must complete 3 of following elements*): Abnormal Rate: 140 Rhythm: ST [place]: normal QRS: normal SC Interval: normal ST Wave: normal - CONSULTS/PCP/HOSPITALIST Notification #1 *Consult/PCP/Hospitalist*: [facility] for Dr. Pino Time Discussed: 14:52 Reason/Comments: Admission Consult Disposition: Will see in ED, Admit Departure - Departure Date of Disposition Decision: 05/30/19 Time of Disposition Decision: 14:54 DIAGNOSIS: DKA (diabetic ketoacidoses) Qualifiers: Diabetes mellitus type: type 1 Diabetes mellitus complication detail: without coma Qualified Code(s): E10.10 - Type 1 diabetes mellitus with ketoacidosis without coma Disposition: ADMITTED INPATIENT 09 Certified Medical Emergency: Emergent Condition: Stable Referrals and Follow-Ups: Reid Allen MD [Primary Care Provider] - - Critical Care Note This patient required my direct & personal management of CC.: Yes Total Time (mins): 35 Critical Care Statement: This patient required my direct personal management to treat or rule out processes, the absence of which, could potentiallly result in sudden, clinically significant life or limb threatening deterioration. Attestation - Physician/ ALFREDO Attestation Patient care was provided by Advanced Practice Provider:: Yes Advanced Practice Provider:: Sharonda Mathews Advanced Practice Provider documentation review:: The Mid-level provider documentation, treatment plan and medical decision making was reviewed by the physician who agrees with all treatment and medical decision making by the MLP. The physician spent face to face time with patient:: No Advanced Practice Provider documentation review:: Supervising physician onsite and consulted in the evaluation and care of this patient. The physician did not have a face to face encounter with the patient.
[2019-05-30 14:33] LABS: ALLEN TEST YES; BE -25.4 mmoll (-3.0-3.0); BLOOD TYPE ARTERIAL; HCO3-(ACT) 5.1 mmoll (20.0-26.0); METHB 0.7 % (0.0-1.5); O2(CT) 20.5 mL/dL (15.0-23.0); O2HB 97.8 % (95.0-99.0); PO2(98.6) 155 mmHg (60-100); SAMPLE BLOOD; SAO2 99.9 % (95.0-100.0); THB 14.7 g/dL (11.5-17.4)
[2019-05-30 14:35] LABS: pH(98.6) 7.07 (7.35-7.45)
[2019-05-30 14:36] LABS: MODALITY ROOM AIR; PCO2(98.6) 8 mmHg (35-45)
[2019-05-30 14:56] LABS: HEMATOCRIT 46.5 % (37.0-47.0); MCH 29.4 PG (27-31); MCHC 30.1 g/dL (33-37); MCV 97.5 FL (81-99); MPV 9.2 FL (7.4-10.4); RBC 4.77 XMIL (4.2-5.4); RDW 15.2 % (11.5-14.5); WBC 11.05 X1000 (4.8-10.8)
[2019-05-30 15:16] LABS: AGAP 50; ALBUMIN 3.8 g/dL (3.5-5.0); ALKALINE PHOSPHATASE 221 U/L (32-104); BUN 24 mg/dL (8-22); CALCIUM 9.5 mg/dL (8.8-10.2); CHLORIDE 80 mmol/L (98-107); CK PROFILE 21 U/L (24-173); COSMO 307; CREATININE 1.6 mg/dL (0.5-0.9); ESTIMATED GFR 38; GOT 18 U/L (10-30); GPT 17 U/L (10-36); MAGNESIUM 1.8 mg/dL (1.5-2.7); PHOSPHORUS 7.6 mg/dL (2.7-4.5); POTASSIUM 5.3 mmol/L (3.5-5.1); SODIUM 132 mmol/L (136-145); TCO2 2 mmol/L (25-35); TOTAL BILIRUBIN 0.23 mg/dL (0.20-1.00); TOTAL PROTEIN 7.7 g/dL (6.3-8.3)
[2019-05-30] MEDS: NS 1,000 ML IV SCH (15:17)
[2019-05-30 15:19] LABS: ACETONE SERUM LARGE (NEGATIVE)
[2019-05-30 15:25] LABS: GLUCOSE 797 mg/dL (70-104)
[2019-05-30 15:31] LABS: URINE SOURCE CATH
[2019-05-30 15:36] LABS: BILIRUBIN URINE NEGATIVE (NEGATIVE); BLOOD URINE NEGATIVE (NEGATIVE); COLOR YELLOW; GLUCOSE URINE >1000 mg/dL (NEGATIVE); KETONE URINE >150 mg/dL (NEGATIVE); LEUKOCYTES URINE NEGATIVE (NEGATIVE); NITRITE URINE NEGATIVE (NEGATIVE); PROTEIN URINE TRACE mg/dL (NEGATIVE); SP GRAVITY URINE 1.021; TURBIDITY URINE CLEAR (CLEAR); UROBILINOGEN URINE NORMAL (NORMAL)
[2019-05-30 15:37] LABS: UR EPITHELIAL CELLS <10 /HPF (<10); URINE BACTERIA NEGATIVE /HPF; URINE RBC <10 /HPF (<10); URINE WBC <10 /HPF (<10)
--- NOTE | 2019-05-30 15:37 | EKG Report ---
Test Performed on : 05/30/2019 2:53:41 PM Test Reason : admit Blood Pressure : / mmHG Vent. Rate : 140 BPM Atrial Rate : 140 BPM P-R Int : 128 ms QRS Dur : 078 ms QT Int : 292 ms P-R-T Axes : 074 063 026 degrees QTc Int : 445 ms Sinus tachycardia. Otherwise normal ECG When compared with ECG of 19-MAY-2019 17:03, (Unconfirmed) Nonspecific T wave abnormality has replaced inverted T waves in Inferior leads Nonspecific T wave abnormality no longer evident in Anterolateral leads Unconfirmed Result
[2019-05-30 15:49] LABS: UR AMPHETAMINES QUAL PRESUMPTIVE POSITIVE (NONE DETECT); UR BARBITUATES QUAL NONE DETECTED (NONE DETECT); UR BENZODIAZEPIN QUAL NONE DETECTED (NONE DETECT); UR CANNABINOIDS QUAL NONE DETECTED (NONE DETECT); UR COCAINE QUAL NONE DETECTED (NONE DETECT); UR METHADONE QUAL NONE DETECTED (NONE DETECT); UR OPIATES QUAL NONE DETECTED (NONE DETECT); UR OXYCODONE QUAL NONE DETECTED (NONE DETECT); UR PCP QUAL NONE DETECTED (NONE DETECT)
[2019-05-30] MEDS ORDERED: VANCOMYCIN IV PER PHARMACY MISC SCH ×2 (16:15→17:45)
--- NOTE | 2019-05-30 16:47 | Diag Imaging Result Doc PS360 ---
KUB ABDOMEN - 05/30/2019 INDICATION: leukocytosis COMPARISON: 12/13/2017 FINDINGS: There is a nonobstructive bowel gas pattern. No free air or abdominal calcifications. There are cholecystectomy clips. IMPRESSION: No acute disease. Electronically signed by Mikie Villarreal 05/30/2019 4:44 PM
--- NOTE | 2019-05-30 16:49 | Diag Imaging Result Doc PS360 ---
CHEST-PORTABLE - 05/30/2019 INDICATION: leukocytosis, unresponsive COMPARISON: 05/20/2019 FINDINGS: The lungs are normally expanded and clear. Heart size and mediastinal contours are normal. No pneumothorax or pleural effusion. Stable small granuloma in the left upper lobe. IMPRESSION: Negative exam. Electronically signed by Mikie Villarreal 05/30/2019 4:47 PM
--- NOTE | 2019-05-30 17:20 | Diag Imaging Result Doc PS360 ---
CT HEAD W/O CONTRAST - 05/30/2019 INDICATION: unresponsive COMPARISON: 02/12/2011 FINDINGS: The ventricles and sulci are normal in size and contour. No intracranial mass or hemorrhage. The skull is intact. The sinuses mastoids and middle ears are clear. IMPRESSION: Negative exam. This exam was performed using automated exposure control, adjustment of mA or kV according to patient size, and/or use of iterative reconstruction technique Electronically signed by Mikie Villarreal 05/30/2019 5:17 PM
--- NOTE | 2019-05-30 17:21 | HISTORY AND PHYSICAL ---
CHIEF COMPLAINT: High blood sugar. HISTORY OF PRESENT ILLNESS: This is a 28-year-old female who is well known to our service for prior admissions for the same. She presented to the emergency room via EMS reporting the patient had a blood sugar that read high on their glucometer. Evidently, the patient was found unresponsive by family members who states that they know that she uses unknown IV drugs and has been using IV drugs in the last 24 hours. It is documented on the chart that the patient admitted to using methamphetamine. At the time of my exam the patient is not verbally responsive. She does withdraw from pain. She does not follow commands and it is unknown if she has had any injury. PAST MEDICAL HISTORY: 1. Is taken from the chart diabetes mellitus type 1 with noncompliance with medication and diet. 2. Anxiety. 3. Gastroparesis. 4. Gastroesophageal reflux disease. 5. Prior GI bleed with no outpatient followup. PAST SURGICAL HISTORY: Denies per the chart. SOCIAL HISTORY: According to past urine drug screens she does use amphetamines and other illicit drugs. FAMILY HISTORY: Per the chart. Mother is diabetic. There is hypertension in her family. ALLERGIES: Per the chart Bactrim and sulfa drugs. HOME MEDICATIONS: A list will be obtained by the nursing staff. REVIEW OF SYSTEMS: Unable to obtain from the patient. PHYSICAL EXAMINATION: GENERAL: This is a 28-year-old female who is lying on the stretcher in the emergency room in no distress. VITAL SIGNS: Blood pressure is 145/90 with a heart rate of 137, respirations are 16, temperature is 97.6 degrees with O2 saturation 100%. HEENT: Pupils are equal, round, react to light. EOMs are intact. Sclerae anicteric. HEENT: Head is normocephalic, atraumatic. Mucous membranes are moist. NECK: Supple with trachea midline. CARDIOVASCULAR: Regular rate and rhythm. She is tachycardic. S1 and S2 appreciated. PULMONARY: Breath sounds are clear with no increased work of breathing noted. Chest rises and falls symmetric respiration. GASTROINTESTINAL: Abdomen soft with bowel sounds in all 4 quadrants. SKIN: Pale and warm and dry. NEUROLOGIC: She does withdraw from pain at present and moves extremities at random. LABS: WBC is 11 with hemoglobin 14, hematocrit 46.5, and platelets of 600,000. Sodium 132, potassium 5.3, BUN 24, creatinine 1.6 with a glucose of 797. Urinalysis is essentially negative. She does have greater than 1000 glucose. Urine drug screen is presumptive positive for amphetamines. Acetone is large. ABGs pH is 7.0 with a CO2 of 8, PO2 of 155 and bicarb of 5.1. This is on room air. Lactate is 2.6. Blood cultures are pending. ASSESSMENT AND PLAN: 1. Diabetic ketoacidosis. 2. Diabetes mellitus type 1 with hyperglycemia with noncompliance. 3. Hyponatremia. 4. Hyperkalemia. 5. Acute kidney injury secondary to intravascular volume depletion due to diabetic ketoacidosis. 6. Amphetamine use and abuse. 7. History of intravenous drug use. 8. Leukocytosis. PLAN: The patient will be admitted to ICU. She will be n.p.o. at present. She will be placed on DKA protocol. We will obtain blood cultures and start IV antibiotic coverage of vancomycin and cefepime and any further antibiotics will be culture driven. Will check a chest x-ray, KUB and a CT of the head as we are unsure of any injury. Further treatments pending hospital course. Plan was discussed with Dr. Pino. Dictated by DAPHNE Russell for Robert Pino MD cc: DAPHNE Russell Patient pretty encephalopathic and only minimally responsive currently. uncertain if this is due to DKA with coma or due to illicit drug use. I suspect it is a combination of both. will place on empiric antibiotics given tachycardia and leukocytosis concerning for sepsis, although no clear source of infection identified and it may just be due to her DKA. insulin drip and IVF for DKA. and supportive care. will see how well she wakes up once her DKA is improved and whatever she took is out of her system. [facility]
[2019-05-30] MEDS ORDERED: ZOFRAN IV PRN (17:37)
[2019-05-30] MEDS: MAXIPIME 2 GM/NS 2 GM/100 ML IVPB IV SCH (17:52)
[2019-05-30] MEDS ORDERED: VANCOMYCIN 1,350 MG in NS 250 ML IV ONE ×4 (18:00)
[2019-05-30] MEDS ORDERED: VANCOMYCIN 1 GM/NS 1 GM/250 ML IVPB IV SCH (18:00)
[2019-05-30 18:45] LABS: CALCIUM 8.8 mg/dL (8.8-10.2); CREATININE 1.2 mg/dL (0.5-0.9); MAGNESIUM 1.7 mg/dL (1.5-2.7); PHOSPHORUS 3.1 mg/dL (2.7-4.5)
[2019-05-30] MEDS: D5 NS 1,000 ML IV PRN (20:53)
[2019-05-30 22:02] LABS: ESTIMATED GFR > 60
[2019-05-30 22:04] LABS: AGAP 34; BUN 15 mg/dL (8-22); CALCIUM 8.1 mg/dL (8.8-10.2); CHLORIDE 102 mmol/L (98-107); COSMO 293; GLUCOSE 191 mg/dL (70-104); MAGNESIUM 1.5 mg/dL (1.5-2.7); PHOSPHORUS 2.7 mg/dL (2.7-4.5); POTASSIUM 4.2 mmol/L (3.5-5.1); SODIUM 144 mmol/L (136-145); TCO2 8 mmol/L (25-35)
[2019-05-31 02:06] LABS: CALCIUM 8.1 mg/dL (8.8-10.2); CREATININE 1.1 mg/dL (0.5-0.9); MAGNESIUM 1.8 mg/dL (1.5-2.7); POTASSIUM 4.5 mmol/L (3.5-5.1)
[2019-05-31] MEDS: MAXIPIME 2 GM/NS 2 GM/100 ML IVPB IV SCH ×2 (04:53→17:28)
[2019-05-31] MEDS: D5 NS 1,000 ML IV PRN ×2 (04:53→13:37)
[2019-05-31] MEDS: NS 1,000 ML IV SCH ×6 (04:58→21:37)
[2019-05-31 06:51] LABS: AGAP 21; BUN 10 mg/dL (8-22); CALCIUM 8.1 mg/dL (8.8-10.2); CHLORIDE 105 mmol/L (98-107); COSMO 284; CREATININE 0.9 mg/dL (0.5-0.9); ESTIMATED GFR > 60; GLUCOSE 134 mg/dL (70-104); MAGNESIUM 2.1 mg/dL (1.5-2.7); POTASSIUM 3.7 mmol/L (3.5-5.1); SODIUM 142 mmol/L (136-145); TCO2 16 mmol/L (25-35)
[2019-05-31] MEDS ORDERED: PROTONIX IV SCH (07:00)
[2019-05-31] MEDS ORDERED: SODIUM CHLORIDE 0.9% INJ SCH (07:00)
--- NOTE | 2019-05-31 07:39 | PROGRESS NOTE ---
DATE: 05/31/2019 INTERVAL HISTORY: She remained tachycardic. She has had episodes of nausea and vomiting overnight. Ms. Hu is awake and alert. She is thirsty and wanted to eat and drink something. She says that she could not find her insulin, and her blood sugars went really, really high, and that was the last thing that she remembered, and then when she woke up, she was in the hospital. She currently denies any chest pain, shortness of breath. She does feel a little nauseous, though it is better than before. She continues to have abdominal pain. OBJECTIVE: Vital Signs: Temperature of 98.8 degrees, pulse 112, respiratory rate 20, blood pressure 113/67, saturating 100% on room air. General: Not in acute distress. HEENT: Oral cavity is moist. Lungs: Air entry bilaterally equal. No wheeze, rhonchi, crackles. Cardiovascular: S1, S2 normal. No murmur or gallop. Abdomen: Soft. Generalized tenderness. Active bowel sounds. Extremities: No lower extremity edema. There are track dowling in the left forearm. Neurologic: She is alert and oriented x3. She is able to move all extremities spontaneously. LABORATORY DATA: No CBC today. BMP suggestive of improvement in anion gap. Resolution of acute kidney injury. Hyperglycemia is within acceptable range. MICROBIOLOGY: No positive data. IMAGING: No new imaging. ASSESSMENT AND PLAN: 1. Acute encephalopathy on presentation, likely because of diabetic ketoacidosis. Head CT was unremarkable. Encephalopathy is resolved. She is alert and oriented x3. 2. Diabetic ketoacidosis, likely because of noncompliance with insulin. Her hemoglobin A1c was more than 10 in early 05/2019. Continue her on diabetic ketoacidosis protocol with intravenous D5-containing fluids, intravenous insulin, and electrolyte repletion protocol. Will monitor her anion gap and bicarbonate levels. She was counseled about being compliant with medication. 3. Electrolyte abnormalities, including hyponatremia, hyperkalemia, acute kidney injury on presentation with intravascular volume depletion, nausea and vomiting, now improving. Continue to monitor BMP. Diabetic ketoacidosis was likely a triggering factor. 4. Amphetamine abuse. The patient was counseled about stopping recreational substances, and I offered if she would want any [employer] resources to help. She is still contemplating. 5. History of intravenous drug use. Her urine toxicology has been positive for amphetamine on multiple occasions. Considering she was tachycardic and had WBC, continue intravenous broad- spectrum antibiotics until final blood culture results come back, and I will also get WBC count tomorrow to monitor her leukocytosis. 6. History of recent esophagitis: Start Pantoprazole BID. 6. Disposition. I will continue to monitor the patient in intensive care unit considering her current need for intravenous insulin. Plan of care discussed with the patient. I extensively counseled her about being compliant with medication, stopping intravenous drug use. All of her questions have been satisfactorily answered. cc: Gregory Lucero MD MTDD
[2019-05-31] MEDS: PROTONIX IV SCH ×2 (08:42→18:11)
[2019-05-31] MEDS: LOVENOX SUBQ SCH (09:08)
[2019-05-31] MEDS ORDERED: POTASSIUM CHLORIDE 10% LIQUID PO PRN (09:25)
[2019-05-31 11:07] LABS: AGAP 19; BUN 8 mg/dL (8-22); CALCIUM 8.3 mg/dL (8.8-10.2); CHLORIDE 104 mmol/L (98-107); COSMO 283; CREATININE 0.9 mg/dL (0.5-0.9); ESTIMATED GFR > 60; GLUCOSE 193 mg/dL (70-104); MAGNESIUM 1.8 mg/dL (1.5-2.7); POTASSIUM 4.8 mmol/L (3.5-5.1); SODIUM 140 mmol/L (136-145); TCO2 17 mmol/L (25-35)
[2019-05-31] MEDS: VANCOMYCIN 1 GM/NS 1 GM/250 ML IVPB IV SCH ×2 (11:19→22:07)
[2019-05-31 14:27] LABS: AGAP 16; BUN 6 mg/dL (8-22); CALCIUM 7.8 mg/dL (8.8-10.2); CHLORIDE 104 mmol/L (98-107); COSMO 279; CREATININE 0.7 mg/dL (0.5-0.9); ESTIMATED GFR > 60; GLUCOSE 130 mg/dL (70-104); MAGNESIUM 1.7 mg/dL (1.5-2.7); POTASSIUM 3.7 mmol/L (3.5-5.1); SODIUM 140 mmol/L (136-145); TCO2 20 mmol/L (25-35)
[2019-05-31 18:36] LABS: AGAP 13; BUN 5 mg/dL (8-22); CALCIUM 7.8 mg/dL (8.8-10.2); CHLORIDE 105 mmol/L (98-107); COSMO 278; CREATININE 0.7 mg/dL (0.5-0.9); ESTIMATED GFR > 60; GLUCOSE 150 mg/dL (70-104); MAGNESIUM 1.6 mg/dL (1.5-2.7); POTASSIUM 3.8 mmol/L (3.5-5.1); SODIUM 139 mmol/L (136-145); TCO2 21 mmol/L (25-35)
[2019-05-31] MEDS: LANTUS INSULIN SUBQ SCH (19:38)
[2019-05-31] MEDS: HUMALOG SUBQ SCH ×2 (19:39→22:19)
[2019-05-31 21:47] LABS: AGAP 11; BUN 4 mg/dL (8-22); CALCIUM 7.8 mg/dL (8.8-10.2); CHLORIDE 106 mmol/L (98-107); COSMO 279; CREATININE 0.7 mg/dL (0.5-0.9); ESTIMATED GFR > 60; GLUCOSE 176 mg/dL (70-104); MAGNESIUM 1.5 mg/dL (1.5-2.7); SODIUM 139 mmol/L (136-145); TCO2 22 mmol/L (25-35)
[2019-06-01 02:26] LABS: AGAP 10; BUN 4 mg/dL (8-22); CALCIUM 8.2 mg/dL (8.8-10.2); CHLORIDE 108 mmol/L (98-107); COSMO 284; CREATININE 0.8 mg/dL (0.5-0.9); ESTIMATED GFR > 60; GLUCOSE 207 mg/dL (70-104); MAGNESIUM 1.5 mg/dL (1.5-2.7); PHOSPHORUS 1.6 mg/dL (2.7-4.5); POTASSIUM 3.9 mmol/L (3.5-5.1); SODIUM 141 mmol/L (136-145); TCO2 23 mmol/L (25-35)
[2019-06-01] MEDS: HUMALOG SUBQ SCH ×5 (03:08→21:33)
[2019-06-01] MEDS: NS 1,000 ML IV SCH (04:16)
[2019-06-01] MEDS: MAXIPIME 2 GM/NS 2 GM/100 ML IVPB IV SCH ×2 (04:17→16:13)
[2019-06-01] MEDS: PROTONIX IV SCH ×2 (06:27→18:09)
[2019-06-01 06:37] LABS: BASO# 0.03 X1000 (0.0-0.2); BASO% 0.6 % (0.0-0.8); EOS# 0.13 X1000 (0.0-0.7); EOS% 2.6 % (0.0-10.0); HEMATOCRIT 34.4 % (37.0-47.0); IMM GRAN# 0.02 X1000 (0.0-0.04); IMM GRAN% 0.4 % (0.0-0.5); LYMPH% 38.5 % (20.5-51.1); MCH 29.7 PG (27-31); MONO# 0.54 X1000 (0.11-0.59); MPV 8.6 FL (7.4-10.4); NEUT# 2.31 X1000 (1.4-6.5); NEUT% 46.9 % (42.2-75.2); PLT 411 X1000 (130-400); RDW 15.5 % (11.5-14.5); WBC 4.93 X1000 (4.8-10.8)
[2019-06-01] MEDS ORDERED: VANCOMYCIN 1 GM/NS 1 GM/250 ML IVPB IV SCH (07:00)
[2019-06-01 07:05] LABS: AGAP 12; BUN 4 mg/dL (8-22); CALCIUM 7.8 mg/dL (8.8-10.2); CHLORIDE 103 mmol/L (98-107); COSMO 276; CREATININE 0.8 mg/dL (0.5-0.9); ESTIMATED GFR > 60; GLUCOSE 228 mg/dL (70-104); MAGNESIUM 1.5 mg/dL (1.5-2.7); PHOSPHORUS 1.9 mg/dL (2.7-4.5); POTASSIUM 3.6 mmol/L (3.5-5.1); SODIUM 136 mmol/L (136-145); TCO2 21 mmol/L (25-35)
[2019-06-01] MEDS ORDERED: SODIUM PHOSPHATE 35 MMOL in NS 250 ML IV ONE (08:21)
[2019-06-01 08:26] LABS: LYMPHS 42 % (21-51); MONO 10 % (1-9); SEGS 48 % (42-75)
[2019-06-01 08:44] LABS: HEMOGLOBIN A1C 10.1 % (4.8-6.0)
[2019-06-01] MEDS ORDERED: NS 1,000 ML IV SCH (09:18)
[2019-06-01] MEDS: LOVENOX SUBQ SCH (09:54)
--- NOTE | 2019-06-01 10:01 | PROGRESS NOTE ---
DATE: 06/01/2019 SUBJECTIVE: Patient reports feeling fine. Denies any fever or chills. According to nursing staff, he is eating and drinking okay. No other issues noted. She has never being on pressors. OBJECTIVE: Vital Signs: Temperature 98.5 degrees, heart rate 98, respiratory rate 12, blood pressure 113/68, O2 sat 99% on room air. General: This is a 28-year-old female lying in bed, in no acute distress. Cardiovascular: No murmur, gallops or rubs. Regular rate and rhythm. Respiratory: Clear bilaterally to auscultation. No work of breathing or using accessory muscles. Abdomen: Soft. Nontender to palpation. Bowel sounds present. No organomegaly. Extremities: No clubbing, cyanosis, or edema. There is a rash located in the upper part of the right upper extremity that is itchy. There is an erythematous rash there. There are track dowling also in the left forearm. Neurological exam: Patient is alert and oriented x3. Moves 4 extremities. LABORATORY DATA: White cell count 4.93, hemoglobin 11.0, hematocrit 34.4, platelets 411,000 with BMP that is normal except phosphorus 1.9. ASSESSMENT AND PLAN: 1. Diabetic ketoacidosis. That condition is resolved. Gap is 12 with bicarbonate 21, phosphorus is a little bit low 1.9. So at this point, what we are going to do is to continue with Lantus at same home doses and the sliding scale insulin. Insulin drip is already stopped. We will continue to check renal profile daily basis. The patient is eating okay. 2. Acute encephalopathy on presentation secondary to condition, resolved. 3. Electrolyte abnormalities. The patient's phosphorus is low so we will replenish but potassium on admission are so far okay. 4. Amphetamine abuse. The patient has been counseled about stopping IV recreational drugs. We will see what the patient has to say. 5. History of gastroesophageal reflux disease. We will continue with pantoprazole b.i.d. 6. Disposition. I think the patient is doing fine. DKA has resolved so we will transfer the patient to a regular floor. We will monitor BMP and if those are okay we will send this patient home. cc: Zachariah Chaves MD
[2019-06-01] MEDS: VANCOMYCIN 1 GM/NS 1 GM/250 ML IVPB IV SCH (10:59)
[2019-06-01 18:49] VITALS: BP 127/88
[2019-06-01] MEDS: LANTUS INSULIN SUBQ SCH (21:01)
--- NOTE | 2019-06-02 15:12 | DISCHARGE SUMMARY ---
ADMISSION DATE: 05/30/2019 DISCHARGE DATE: 06/01/2019 This is an AMA discharge for this patient Eugene Hu. DISCHARGE DIAGNOSES: 1. Diabetic ketoacidosis. 2. Acute encephalopathy. 3. Electrolyte abnormalities, hypophosphatemia on hypopotassemia. 4. IV drug abuse. 5. Amphetamine abuse. 6. History of gastroesophageal reflux disease. HOSPITAL COURSE: This is a patient hole was admitted for elevated blood sugar that was found to be in DKA so she was placed on insulin drip. She is very well known to use IV drug abuse. She has been using it for the last 24 hours. She was not verbally responsive at the time of the admission. I have seen this patient yesterday and the DKA has been resolved so I transferred to regular floor. I plan to continue with current home doses of Lantus but this patient decided to leave AMA on 06/01/2019. cc: Zachariah Chaves MD
== END 2019-06-01 22:12 | disposition left against medical advice (07) ==
LOC: SUPCPDRO → ED 13:37 → SUATTDRO 16:05 → ICU 16:05 → 1N 06-01 16:51
PROVIDERS: ATTEND Internal Medicine

== ENCOUNTER 2019-08-03 15:44 | Inpatient (IN) ==
[2019-08-03 19:18] LABS: URINE SOURCE CLEAN CATCH
[2019-08-03 19:34] LABS: UR AMPHETAMINES QUAL PRESUMPTIVE POSITIVE (NONE DETECT); UR BARBITUATES QUAL NONE DETECTED (NONE DETECT); UR BENZODIAZEPIN QUAL NONE DETECTED (NONE DETECT); UR CANNABINOIDS QUAL NONE DETECTED (NONE DETECT); UR COCAINE QUAL NONE DETECTED (NONE DETECT); UR METHADONE QUAL NONE DETECTED (NONE DETECT); UR OPIATES QUAL NONE DETECTED (NONE DETECT); UR OXYCODONE QUAL NONE DETECTED (NONE DETECT); UR PCP QUAL NONE DETECTED (NONE DETECT)
[2019-08-03 19:39] LABS: BILIRUBIN URINE NEGATIVE (NEGATIVE); BLOOD URINE NEGATIVE (NEGATIVE); COLOR YELLOW; GLUCOSE URINE >1000 mg/dL (NEGATIVE); KETONE URINE 60 mg/dL (NEGATIVE); LEUKOCYTES URINE NEGATIVE (NEGATIVE); NITRITE URINE NEGATIVE (NEGATIVE); PROTEIN URINE TRACE mg/dL (NEGATIVE); SP GRAVITY URINE 1.028; TURBIDITY URINE CLEAR (CLEAR); UROBILINOGEN URINE NORMAL (NORMAL)
[2019-08-03 19:40] LABS: UR EPITHELIAL CELLS <10 /HPF (<10); URINE BACTERIA NEGATIVE /HPF; URINE RBC <10 /HPF (<10); URINE WBC <10 /HPF (<10)
[2019-08-03 21:00] LABS: BASO# 0.11 X1000 (0.0-0.2); BASO% 1.9 % (0.0-0.8); EOS# 0.11 X1000 (0.0-0.7); EOS% 1.9 % (0.0-10.0); HEMATOCRIT 33.1 % (37.0-47.0); HEMOGLOBIN 9.7 g/dL (12.0-16.0); LYMPH# 2.58 X1000 (1.2-3.4); LYMPH% 43.7 % (20.5-51.1); MCH 29.6 PG (27-31); MCHC 29.3 g/dL (33-37); MCV 100.9 FL (81-99); MONO# 0.53 X1000 (0.11-0.59); MPV 10.1 FL (7.4-10.4); NEUT# 2.58 X1000 (1.4-6.5); NEUT% 43.5 % (42.2-75.2); PLT 497 X1000 (130-400); RBC 3.28 XMIL (4.2-5.4); RDW 16.4 % (11.5-14.5); WBC 5.91 X1000 (4.8-10.8)
--- NOTE | 2019-08-03 21:10 | Diag Imaging Result Doc PS360 ---
EXAM: CT ABD/PELVIS W/IV CONT ONLY HISTORY: abd pain TECHNIQUE: CT abdomen and pelvis with intravenous contrast, but without oral contrast COMPARISON: None. FINDINGS: The gallbladder has been removed. There is periportal edema. No focal hepatic abnormality. Normal spleen, pancreas, adrenal glands, and kidneys. No hydronephrosis. No aortic aneurysm. There is stool throughout the colon. No bowel obstruction. The appendix is not clearly identified. No abscess. There is free fluid in the pelvis. Normal uterus. Neither ovary is enlarged. Urinary bladder is distended and appears normal. There is body wall edema. IMPRESSION: 1.Constipation 2.Cholecystectomy 3.Small amount of free fluid in the pelvis 4.Body wall edema This exam was performed using automated exposure control, adjustment of mA or kV according to patient size, and/or use of iterative reconstruction technique. Electronically signed by Bentley Marie 08/03/2019 9:08 PM
[2019-08-03 21:19] LABS: ACETONE SERUM MODERATE (NEGATIVE)
[2019-08-03 22:24] LABS: AGAP 26; ALB/GLOB RATIO 0.5; ALBUMIN 2.9 g/dL (3.5-5.0); ALKALINE PHOSPHATASE 297 U/L (32-104); BUN 9 mg/dL (8-22); CALCIUM 8.8 mg/dL (8.8-10.2); CHLORIDE 91 mmol/L (98-107); COSMO 287; CREATININE 0.8 mg/dL (0.5-0.9); ESTIMATED GFR > 60; GLUCOSE 449 mg/dL (70-104); GOT 99 U/L (10-30); GPT 168 U/L (10-36); POTASSIUM 5.1 mmol/L (3.5-5.1); SODIUM 134 mmol/L (136-145); TCO2 17 mmol/L (25-35); TOTAL BILIRUBIN 3.65 mg/dL (0.20-1.00); TOTAL PROTEIN 8.3 g/dL (6.3-8.3)
[2019-08-03] MEDS ORDERED: NS 1,000 ML IV ONE (22:27)
[2019-08-03] MEDS ORDERED: HUMULIN R SUBQ ONE (22:27)
[2019-08-03 23:13] LABS: ALLEN TEST YES; BE -20.1 mmoll (-3.0-3.0); BLOOD TYPE ARTERIAL; METHB 1.2 % (0.0-1.5); O2(CT) 4.8 mL/dL (15.0-23.0); O2HB 96.1 % (95.0-99.0); PO2(98.6) 84 mmHg (60-100); SAMPLE BLOOD; SAO2 99.1 % (95.0-100.0); THB 3.4 g/dL (11.5-17.4)
[2019-08-03 23:15] LABS: HCO3-(ACT) 9.3 mmoll (20.0-26.0); LACTATE < 0.30 mmoll (0.44-2.22); MODALITY ROOM AIR; PCO2(98.6) 10 mmHg (35-45)
--- NOTE | 2019-08-04 00:11 | PROVIDER DOCUMENTATION ---
This chart was entered by Destiny Hale Scribe, acting as scribe for Krista Medina MD. HPI-General Adult - General Chief Complaint: Edema Stated Complaint: LOW EXTREMITY Time Seen by Provider: 08/03/19 19:22 Source: patient Allergies/Adverse Reactions: Patient Allergies Allergy/AdvReac Type Severity Reaction Status Date / Time sulfamethoxazole Allergy Intermediate HIVES Verified 07/30/19 14:54 [From Bactrim] trimethoprim [From Bactrim] Allergy Intermediate HIVES Verified 07/30/19 14:54 Home Medications: Home Medication List Medication Instructions Recorded Confirmed Last Taken Type Insulin Aspart [Novolog Flexpen] 10 units SQ AC #1 insuln.pen 05/24/19 08/03/19 07/30/19 Rx Insulin Glargine,Hum.rec.anlog 30 unit SQ HS #1 insuln.pen 05/24/19 08/03/19 07/29/19 Rx [Lantus Solostar] - History of Present Illness -Gen Adult Nature of Presenting Problems: pt is a 29 yr old female presenting with ongoing complaint of elevated BGL and bilateral LE edema. pt left from [facility] 4 days ago after being admitted with similar complaints. pt reports edema is worsening, she also admits nausea and dark urine. pt admits recent hep a dx Location of Pain/Injury: reports: lower extremity Pain Radiation: reports: no radiation Quality of Pain: reports: tightness Severity: reports: moderate Onset/Duration: reports: gradual Timing: reports: getting worse Context/Activities at Onset: reports: light activity Modifying Factors: improves with: nothing Associated Symptoms: reports: genitourinary problems (dark urine), nausea, other (edema). denies: back/neck pain, chest pain, dizziness, shortness of breath, vomiting Similar Symptoms Previously?: Yes Recently seen or treated by another doctor?: Yes - Diabetes Related Context Context: reports: high blood sugar, prior DKA hospitalization Review of Systems - Adult - REVIEW OF SYSTEMS - ADULT Constitutional: denies: chills, fever Eyes: reports: no symptoms reported Ears, Nose, Mouth & Throat: reports: no symptoms reported Cardiovascular: reports: edema (BLE). denies: chest pain, palpitations, syncope Respiratory: denies: cough, shortness of breath Gastrointestinal: reports: nausea. denies: abdominal pain, vomiting Genitourinary: reports: other (dark urine) Musculoskeletal: denies: back pain, joint pain, neck pain Integumentary: reports: no symptoms reported Neurological: reports: no symptoms reported Psychiatric: reports: no symptoms reported Endocrine: reports: no symptoms reported Hematologic/Lymphatic: reports: no symptoms reported Allergic/Immunologic: reports: no symptoms reported All Other Systems: Reviewed and Negative Past History - Adult - PAST MEDICAL HISTORY-ADULT Review of Records: reports: Old Records Reviewed, Nursing Assessment Review, Medications Reviewed, Social history reviewed & non-contributory. Major Childhood Illnesses: reports: denies history Cardiovascular: reports: CHF Respiratory: reports: denies history Gastrointestinal: reports: hepatitis (Hep A) Obstetrical/Gynecological: reports: denies history Genitourinary: reports: denies history Musculoskeletal: reports: denies history Neurological: reports: denies history Psychiatric: reports: denies history Endocrine/Immune: reports: Diabetes Other Conditions: reports: denies history - PRIOR SURGERIES/PROCEDURES Surgical/Procedure History: reports: BTL, - PRIOR HOSPITALIZATIONS Prior Hospitalizations: reports: none - IMMUNIZATION STATUS Childhood Immunizations: See Nurse Assessment Flu Vaccine: See Nurse Assessment - FAMILY HISTORY Family History: reviewed, not pertinent - SOCIAL HISTORY Smoking: cigarettes Provider spent 3-5 mins advising pt. on dangers of tobacco.: Discussed manners to quit use, and f/u contacts for add'l counseling. Living Situation: family Physical Exam-General - PHYSICAL EXAM-ADULT Initial Vital Signs Reviewed: Yes - CONSTITUTIONAL General Appearance: appears well, alert, no apparent distress - EYES Eyes: PERRL/EOMI - HEAD, EARS, NOSE, MOUTH & THROAT HENMT: normocephalic/atraumatic, moist mucous membranes, normal ENT inspection - NECK Neck: non-tender, full range of motion, supple, normal inspection - RESPIRATORY Respiratory: chest non-tender, lungs clear, normal breath sounds, no respiratory distress, no accessory muscle use - CARDIOVASCULAR Cardiovascular: normal peripheral pulses, regular rate, rhythm - GASTROINTESTINAL (ABDOMEN) Abdominal Exam: normal bowel sounds, tenderness (RUQ tenderness) - LYMPHATIC Lymphatic: no adenopathy - MUSCULOSKELETAL Back Exam: normal inspection, no CVA tenderness, no vertebral tenderness Extremity: normal range of motion, non-tender, pedal edema (bilateral 1+ pitting edema) - SKIN Integumentary: normal color, normal turgor, warm/dry - NEUROLOGIC Neurologic: grossly normal, no motor/sensory deficits - PSYCHIATRIC Psych/Mental Status: normal mood/affect Progress - PLAN OF CARE/RESULTS Progress/Plan/Lab Results: Vital Signs - 8 hr 08/03/19 15:53 08/03/19 18:42 Temperature 97.9 F 97.6 F Pulse Rate 92 H 103 H Respiratory Rate 16 18 Blood Pressure 121/80 124/80 O2 Sat by Pulse Oximetry 100 100 Bedside Urine ED: Urine Bedside Start: 08/03/19 18:59 Freq: Status: Active Protocol: Activity Type Activity Date Activity User E-Sign Co-Sign Detail Recorded Client Recorded Date Recorded By Document 08/03/19 19:05 [id number] 08/03/19 19:05 [id number] 08/03/19 19:05 Point of Care [Bedside Point of Care] -Lot # [id number] - Results Negative -Control Line Visible? Yes Laboratory Results - last 24 hr 08/03/19 08/03/19 08/03/19 15:58 18:59 19:00 POC Glucose 363 H Urine Source CLEAN CATCH Urine Color YELLOW Urine Turbidity CLEAR Urine pH 6.0 Ur Specific [place] 1.028 Urine Protein TRACE A Ur Glucose (Stick) >1000 A Ur Ketones (Stick) 60 A Urine Blood NEGATIVE Urine Nitrite NEGATIVE Urine Bilirubin NEGATIVE Urobilinogen Dipstick NORMAL Urine Leukocytes NEGATIVE Urine WBC (Auto) <10 Urine RBC (Auto) <10 U Epithel Cells (Auto) <10 Urine Bacteria (Auto) NEGATIVE Urine Opiates Screen NONE DETECTED Ur Oxycodone Screen NONE DETECTED Ur Methadone, Qual NONE DETECTED Ur Barbiturates Screen NONE DETECTED Ur Phencyclidine Scrn NONE DETECTED Ur Amphetamines Screen PRESUMPTIVE POSITIVE A U Benzodiazepines Scrn NONE DETECTED Urine Cocaine Screen NONE DETECTED U Cannabinoids Screen NONE DETECTED Orders Category Date Time Status CT ABD/PELVIS W/IV CONT ONLY [CT] Stat Exams 08/03/19 19:36 Ordered ACETONE SERUM [CHEM] Stat Lab 08/03/19 16:43 Uncollected CBC WITH DIFF [HEME] Stat Lab 08/03/19 16:43 Uncollected COMPREHENSIVE METABOLIC PANEL [CHEM] Stat Lab 08/03/19 16:43 Uncollected PRO B-NATRIURETIC PEPTIDE Stat Lab 08/03/19 19:36 Uncollected TROPONIN T HIGH SENSITIVITY Stat Lab 08/03/19 19:36 Uncollected URINALYSIS [URINALYSIS] Stat Lab 08/03/19 18:59 Completed URINE DRUG SCREEN Stat Lab 08/03/19 19:00 Completed Result Diagrams: 08/03/19 20:22 08/03/19 20:22 - CT/MRI 1 CT Study: Abdomen, Pelvis Impression: Abnormal (Signed EXAM: CT ABD/PELVIS W/IV CONT ONLY HISTORY: abd pain TECHNIQUE: CT abdomen and pelvis with intravenous contrast, but without oral contrast COMPARISON: None. FINDINGS: The gallbladder has been removed. There is periportal edema. No focal hepatic abnormality. Normal spleen, pancreas, adrenal glands, and kidneys. No hydronephrosis. No aortic aneurysm. There is stool throughout the colon. No bowel obstruction. The appendix is not clearly identified. No abscess. There is free fluid in the pelvis. Normal uterus. Neither ovary is enlarged. Urinary bladder is distended and appears normal. There is body wall edema. IMPRESSION: 1.Constipation 2.Cholecystectomy 3.Small amount of free fluid in the pelvis 4.Body wall edema This exam was performed using automated exposure control, adjustment of mA or kV according to patient size, and/or use of iterative reconstruction technique. Electronically signed by Bentley Marie 08/03/2019 9:08 PM 08/03/192107 Interpreting Physician: Bentley aMrie MD Dictated Date/Time: 08/03/[id number]) - CONSULTS/PCP/HOSPITALIST Notification #1 *Consult/PCP/Hospitalist*: d/w Dr Castañeda Time Discussed: 00:02 Consult Disposition: Admit Departure - Departure Date of Disposition Decision: 08/04/19 Time of Disposition Decision: 00:02 DIAGNOSIS: DKA (diabetic ketoacidoses), Hyperglycemia Disposition: ADMITTED INPATIENT 09 Certified Medical Emergency: Emergent Condition: Stable Referrals and Follow-Ups: Reid Allen MD [Primary Care Provider] - - Critical Care Note This patient required my direct & personal management of CC.: Yes Total Time (mins): 40 Critical Care Statement: This patient required my direct personal management to treat or rule out processes, the absence of which, could potentiallly result in sudden, clinically significant life or limb threatening deterioration. Attestation - Physician/ ALFREDO Attestation Patient care was provided by Advanced Practice Provider:: No The physician spent face to face time with patient:: Yes Advanced Practice Provider documentation review:: Supervising physician onsite and consulted in the evaluation and care of this patient. The physician did have a face to face encounter with the patient. This chart was documented by the indicated scribe, (Destiny Hale Scribe) and accurately reflects the services I performed and decisions made by me, Kirsta Medina MD, as attested by the provider's signature.
[2019-08-04] MEDS ORDERED: SODIUM BICARBONATE 8.4% IV PUSH ONE (00:49)
[2019-08-04] MEDS ORDERED: SODIUM PHOSPHATE 30 MMOL in D5W 250 ML IV PRN (01:00)
[2019-08-04] MEDS ORDERED: MAGNESIUM SULFATE 2 GM/S.W.I. 2 GM/50 ML IVPB IV PRN ×2 (01:00→02:53)
[2019-08-04] MEDS ORDERED: POTASSIUM CHLORIDE 10% LIQUID PO PRN ×2 (01:00→02:53)
[2019-08-04] MEDS ORDERED: POTASSIUM CHLORIDE 40 MEQ/SWI 40 MEQ/100 ML IVPB IV PRN ×2 (01:00→02:53)
[2019-08-04] MEDS ORDERED: POTASSIUM CHLORIDE 20 MEQ/SWI 20 MEQ/100 ML IVPB IV PRN ×2 (01:00→02:53)
[2019-08-04] MEDS ORDERED: D50W SYRINGE IV PRN ×2 (01:00→02:53)
[2019-08-04] MEDS ORDERED: NS 1,000 ML IV SCH ×2 (01:00→02:53)
[2019-08-04] MEDS ORDERED: POTASSIUM CHLORIDE 20% LIQUID PO PRN ×2 (01:00→02:53)
[2019-08-04] MEDS ORDERED: HUMULIN R 100 UNIT in NS 100 ML IV SCH ×2 (01:00→02:53)
[2019-08-04] MEDS ORDERED: SODIUM BICARBONATE 8.4% 100 MEQ in STERILE WATER INJ. 500 ML IV PRN (01:00)
[2019-08-04 01:31] LABS: MAGNESIUM 1.6 mg/dL (1.5-2.7); PHOSPHORUS 4.4 mg/dL (2.7-4.5)
[2019-08-04] MEDS ORDERED: LASIX IV ONE (02:53)
[2019-08-04] MEDS ORDERED: D5 NS 1,000 ML IV PRN (02:53)
[2019-08-04] MEDS ORDERED: HUMULIN R IV ONE (02:53)
[2019-08-04] MEDS ORDERED: ZOFRAN IV PRN (02:53)
[2019-08-04] MEDS ORDERED: ALBUMIN 25% IV ONE (02:53)
[2019-08-04] MEDS ORDERED: AYR NASAL SPRAY NAS PRN (03:17)
[2019-08-04] MEDS: MORPHINE IV PRN ×3 (04:57→21:13)
[2019-08-04 05:20] LABS: AGAP 14; BUN 6 mg/dL (8-22); CALCIUM 8.2 mg/dL (8.8-10.2); CHLORIDE 103 mmol/L (98-107); COSMO 283; CREATININE 0.7 mg/dL (0.5-0.9); ESTIMATED GFR > 60; GLUCOSE 98 mg/dL (70-104); MAGNESIUM 1.4 mg/dL (1.5-2.7); POTASSIUM 3.3 mmol/L (3.5-5.1); SODIUM 143 mmol/L (136-145); TCO2 26 mmol/L (25-35)
--- NOTE | 2019-08-04 06:01 | Diag Imaging Result Doc PS360 ---
EXAM: CHEST-PORTABLE HISTORY: pna? TECHNIQUE: Single view COMPARISON: 07/30/2019 FINDINGS: The lungs are well expanded. The heart is not enlarged. The vessels are not distended. There are no infiltrates. No effusion identified. IMPRESSION: Negative exam. Electronically signed by Bentley Marie 08/04/2019 5:58 AM
[2019-08-04] MEDS: POTASSIUM CHLORIDE 20 MEQ/SWI 20 MEQ/100 ML IVPB IV PRN ×2 (07:01→09:15)
[2019-08-04] MEDS ORDERED: D5 NS 1,000 ML IV SCH (08:00)
[2019-08-04] MEDS: HUMALOG SUBQ SCH ×5 (08:27→21:05)
--- NOTE | 2019-08-04 08:57 | PROGRESS NOTE ---
DATE: 08/04/2019 SUBJECTIVE: Ms. Hu is doing better. She was admitted with DKA. She remains afebrile. Blood sugars come down; in fact, the sugars have dropped below 100, so we are going to continue the D 5 normal saline. OBJECTIVE: Vital Signs: Pulse 90, respirations 12, blood pressure 134/76. Eyes: Pupils are equal and round. Lungs: Clear in all lung pimentel. Cardiovascular exam: Regular rhythm and rate without murmur or S3. Abdomen: Abdomen is soft. Skin: Skin is warm and dry. X-RAYS: Chest x-ray negative. LABORATORY DATA: White count 5910, hematocrit 33, platelet count 497,000. Chemistry: Sodium 143, potassium 3.3, chloride 103. BUN 6, creatinine 0.7. Blood sugars 169, 98, 57, 103 and 160. ASSESSMENT AND PLAN: 1. Diabetes mellitus type 1, uncontrolled. 2. Hyperglycemia. 3. Hyponatremia. 4. Elevated liver function tests, most likely secondary to hepatitis A. 5. Bilateral lower lobe pneumonia. 6. Suicidal ideations with depression. REVIEW OF ORDERS: Right now continue DKA protocol. Looking back at her lab, she never had much of an acid load and she says she is starving, so we will start to feed her a diabetic diet. She is on pattern sugars. Continue D 5 normal saline. Her x-ray on presentation was negative. Abdominal and pelvic CT done: Constipation, cholecystectomy, small amount of free fluid in the pelvis, some body wall edema, apparently history of hepatitis A (I just saw that on the note). cc: Reid Allen MD
[2019-08-04] MEDS ORDERED: LANTUS INSULIN SUBQ ONE ×2 (11:39→12:00)
[2019-08-04] MEDS: NS 1,000 ML IV SCH ×3 (12:28→22:31)
[2019-08-04] MEDS: LANTUS INSULIN SUBQ SCH (21:05)
[2019-08-05] MEDS: MORPHINE IV PRN ×4 (04:37→23:44)
[2019-08-05 06:25] LABS: BASO# 0.07 X1000 (0.0-0.2); BASO% 1.4 % (0.0-0.8); EOS# 0.16 X1000 (0.0-0.7); EOS% 3.3 % (0.0-10.0); HEMATOCRIT 29.1 % (37.0-47.0); HEMOGLOBIN 8.6 g/dL (12.0-16.0); LYMPH# 2.03 X1000 (1.2-3.4); LYMPH% 41.5 % (20.5-51.1); MCH 29.8 PG (27-31); MCHC 29.6 g/dL (33-37); MCV 100.7 FL (81-99); MONO% 8.2 % (1.7-9.3); MPV 9.2 FL (7.4-10.4); NEUT# 2.23 X1000 (1.4-6.5); NEUT% 45.6 % (42.2-75.2); PLT 448 X1000 (130-400); RBC 2.89 XMIL (4.2-5.4); RDW 16.5 % (11.5-14.5); WBC 4.89 X1000 (4.8-10.8)
[2019-08-05] MEDS: HUMALOG SUBQ SCH ×6 (06:27→20:01)
[2019-08-05 06:40] LABS: AGAP 10; ALB/GLOB RATIO 0.5; ALBUMIN 2.2 g/dL (3.5-5.0); ALKALINE PHOSPHATASE 250 U/L (32-104); BUN 6 mg/dL (8-22); CALCIUM 7.1 mg/dL (8.8-10.2); CHLORIDE 97 mmol/L (98-107); COSMO 278; CREATININE 0.6 mg/dL (0.5-0.9); ESTIMATED GFR > 60; GLUCOSE 316 mg/dL (70-104); GOT 117 U/L (10-30); GPT 108 U/L (10-36); MAGNESIUM 1.6 mg/dL (1.5-2.7); POTASSIUM 3.8 mmol/L (3.5-5.1); SODIUM 134 mmol/L (136-145); TCO2 27 mmol/L (25-35); TOTAL BILIRUBIN 1.96 mg/dL (0.20-1.00); TOTAL PROTEIN 6.7 g/dL (6.3-8.3)
[2019-08-05] MEDS: NS 1,000 ML IV SCH (08:55)
--- NOTE | 2019-08-05 15:08 | PROGRESS NOTE ---
DATE: 08/05/2019 SUBJECTIVE: She feels better. She is eating solid food. No nausea. OBJECTIVE: Vital Signs: Remains afebrile, temperature 98.5 degrees, pulse 74, respirations 17, blood pressure 146/90. HEENT: Pupils are equal and round. Lungs: Clear in all lung pimentel. Cardiovascular: Regular rhythm and rate without murmur or S3. Urine output was 3000 mL. Blood sugar 160, 436, 281, and 140. ASSESSMENT AND PLAN: Diabetes mellitus type 1, uncontrolled. Presented with hyperglycemia and hyponatremia. This is resolved with some fluids. She had elevated liver function test, and her AST is 117, ALT is 118, alkaline phosphatase is 250. Will recheck liver enzymes again in the morning. This is a 29-year-old who came to [facility] with complaints of suicidal ideation, so I imagine will need to get a Psychiatric consult tomorrow. She has no suicidal thoughts at the present time. Waiting on hepatitis profile to come back. Will check liver enzymes again in the morning. cc: Ried Allen MD
[2019-08-05] MEDS: LANTUS INSULIN SUBQ SCH (20:05)
[2019-08-06] MEDS: NS 1,000 ML IV SCH ×5 (00:09→18:57)
[2019-08-06] MEDS: HUMALOG SUBQ SCH ×7 (00:10→20:18)
[2019-08-06] MEDS: MORPHINE IV PRN ×3 (06:37→19:23)
[2019-08-06 06:48] LABS: AGAP 9; ALB/GLOB RATIO 0.4; ALBUMIN 2.1 g/dL (3.5-5.0); ALKALINE PHOSPHATASE 223 U/L (32-104); BUN 9 mg/dL (8-22); CALCIUM 7.8 mg/dL (8.8-10.2); CHLORIDE 102 mmol/L (98-107); COSMO 279; CREATININE 0.5 mg/dL (0.5-0.9); ESTIMATED GFR > 60; GLUCOSE 212 mg/dL (70-104); GOT 102 U/L (10-30); GPT 95 U/L (10-36); SODIUM 137 mmol/L (136-145); TCO2 26 mmol/L (25-35); TOTAL BILIRUBIN 1.78 mg/dL (0.20-1.00); TOTAL PROTEIN 6.8 g/dL (6.3-8.3)
--- NOTE | 2019-08-06 08:58 | HISTORY AND PHYSICAL ---
CHIEF COMPLAINT: Lower extremity edema, high blood glucose. HISTORY OF PRESENT ILLNESS: A 32-year-old female who sees Dr. Allen outpatient, who comes in to the emergency room with elevated blood glucose and bilateral lower extremity edema. She apparently left [facility] four days ago after being admitted with similar complaints. Stated the edema she feels is getting worse. Initial laboratory data showed the patient to be back in early DKA. It is also positive for amphetamines. She will be admitted for further evaluation and treatment. PAST MEDICAL HISTORY: 1. Diabetes type 1 with medical noncompliance. 2. Gastroparesis. 3. GERD. 4. Anxiety. 5. GI bleed. 6. Hepatitis A. 7. CHF. PAST SURGICAL HISTORY: section and bilateral tubal ligation. FAMILY HISTORY: Mom had diabetes. Hypertension in first degree relatives. SOCIAL HISTORY: Lives with her . Smokes less than 10 cigarettes a day and has been a smoker for 5 plus years. No alcohol. No illicit drugs. ALLERGIES: Sulfa. HOME MEDICATIONS: Lantus SoloSTAR 30 units subcutaneously at bedtime, NovoLog 10 units subcutaneously before meals. ALLERGIES: Bactrim DS. REVIEW OF SYSTEMS: A 14-point review of systems was conducted with the patient. She has had frequent urination, nausea and vomiting, bilateral lower extremity edema. All other systems reviewed and found to be negative. PHYSICAL EXAMINATION: VITAL SIGNS: Temperature is 97.6, pulse 103, respirations 22, blood pressure 124/80, oxygen saturation 100% on room air. GENERAL: This is a 29-year-old female lying on the ER stretcher, alert and oriented x3. HEENT: Head is normocephalic and atraumatic. Pupils are equal, round and reactive to light. Extraocular eye movements intact. Sclerae anicteric. Conjunctivae pink. Oral mucosa is dry. NECK: Supple. No JVD. No thyromegaly. Trachea is midline. No cervical lymphadenopathy. CARDIAC: S1 and S2 appreciated. Mildly tachycardic. No murmurs, gallops or rubs. LUNGS: Clear to auscultation bilaterally. No rhonchi, wheezes or rales. Symmetric rise and fall with respirations. ABDOMEN: Soft, nondistended and nontender. Bowel sounds present in all 4 quadrants and normoactive. No pulsatile mass. No organomegaly. EXTREMITIES: No clubbing or cyanosis. There is 1+ edema. There are 2+ pedal pulses. GENITOURINARY: No bladder distention. The patient voids. Otherwise deferred. NEUROLOGICAL: Alert and oriented x3. No focal motor deficits. Otherwise nonfocal examination. DIAGNOSTIC DATA: WBC is 5.91, hemoglobin 9.7, hematocrit 33.1, platelet count 497. ABG shows pH of 7.30, pCO2 of 10, bicarb 9.3, pO2 is 84. Sodium is 134, potassium 5.1, chloride 91, carbon dioxide 17, BUN is 9, creatinine 0.8, glucose 449, total bilirubin 3.65, AST is 99, ALT is 168. Urine positive for ketones, greater than 1000 glucose, acetone level moderate, positive for amphetamines. ASSESSMENT: 1. Diabetic ketoacidosis. 2. Diabetes mellitus type 1, poorly controlled. 3. Transaminitis, questionably related to hepatitis A. 4. History of gastroparesis. 5. Questionable amphetamine use and abuse. PLAN: Admit the patient to the Medical Floor. She will continue being treated by her primary care provider, Reid Allen, tomorrow. Morphine as needed for pain. We will start on DKA protocol until her gap is closed. Continue fluid hydration per protocol. Advance diet as tolerated. Further recommendations based on the patient's clinical course. Dictated by DAPHNE Valdovinos for Alonso Castañeda MD cc: DAPHNE Valdovinos MD Allen J. Schmidt, MD
--- NOTE | 2019-08-06 13:52 | PROGRESS NOTE ---
DATE: 08/06/2019 SUBJECTIVE: She is doing better physically. She remains afebrile. When asked about her suicide ideation she still says it is there. I will ask for a psychiatric consult. I think medically she is okay to go back to intermediate. She is requesting a consult from psychiatry. OBJECTIVE: Temperature 98.6 degrees, pulse 78, respirations 18, blood pressure 148/96.HEENT: Pupils are equal, round. Lungs: Clear in all lung pimentel. Cardiovascular: Regular rhythm and rate without murmur or S3. Urine output is 2500 mL. ASSESSMENT: 1. Diabetic ketoacidosis, which is resolved. 2. Diabetes mellitus type 1, poorly controlled. 3. Transaminitis with elevation of liver enzymes. The liver enzymes are coming down nicely. Her blood cultures were negative. PLAN: Reviewing her orders she is on sliding scale insulin. She also gets Humalog which she gets 10 units subcutaneous at 7:00 and 4:00. Looking back at her home regimen she was on NovoLog flex Pen 10 units I think twice a day and she was on Lantus SoloSTAR 30 units at bedtime. We will get a psych consult from [facility] and then see if we can discharge her back to intermediate. Hepatitis profile is still pending. Transaminases are coming down nicely. cc: Reid Allen MD
[2019-08-06 14:23] LABS: HEPATITIS PROFILE ACUTE SEE COMMENTS
[2019-08-06] MEDS: LANTUS INSULIN SUBQ SCH (20:22)
[2019-08-07] MEDS: MORPHINE IV PRN ×3 (02:24→10:44)
[2019-08-07] MEDS: NS 1,000 ML IV SCH ×2 (05:41→10:44)
[2019-08-07] MEDS: HUMALOG SUBQ SCH ×3 (06:20→11:51)
--- NOTE | 2019-08-07 11:35 | Diag Imaging Result Doc PS360 ---
EXAM: FOREARM-RIGHT HISTORY: pain, edema.no known trauma but does use IV drugs. TECHNIQUE: Two views COMPARISON: None. FINDINGS: No fracture. No dislocation.No other abnormality. IMPRESSION: No acute bony injury. Electronically signed by Bentley Marie 08/07/2019 11:32 AM
[2019-08-07 12:13] VITALS: BP 137/83
--- NOTE | 2019-08-07 14:27 | DISCHARGE SUMMARY ---
ADMISSION DATE: 08/04/2019 DISCHARGE DATE: 08/07/2019 DISCHARGE DIAGNOSES: 1. Diabetic ketoacidosis. 2. Diabetes mellitus type 1, poorly controlled. 3. Transaminitis. 4. Fatty liver. 5. Hepatitis A. 6. Amphetamine use. 7. Likely medication noncompliance. HISTORY OF PRESENT ILLNESS: The patient is a 29-year-old female who was admitted with elevated blood glucose and lower extremity edema. She had been at [facility] a few days prior but left against medical advice. Her initial lab work suggested she was likely in DKA with glucose 449. ABG with pH of 7.3, pCO2 of 10, bicarb 17, with a gap of 26. She was put on insulin drip initially and corrected rapidly. She was then transitioned over to subcutaneous insulin at essentially her home doses with reasonable control, the only difference being that she was getting a little bit of sliding scale in addition to her normal home Lantus and NovoLog. Her repeat labs all looked good with a bicarb of 26, gap of 9, glucose of 127. She also had some mildly elevated LFTs with bilirubin of 3.6, AST of 99, ALT of 168, alkaline phosphatase 297 on admission. These trended down towards normal with a discharge bilirubin of 1.78. Hepatitis panel did show hepatitis A, so it was suspected that she may be on the back end, the downside, of a hepatitis A infection. Her UDS was also positive for amphetamines, which it has been numerous times in the past as well. As her bilirubin was improving and her DKA was resolved and her glucose control was reasonable on close to her home doses of insulin, it was thought that she was stable for discharge. Given the patient's excellent response to what was essentially her home regimen, it was thought noncompliance with her home medications was likely an issue. The importance of compliance with her insulin was stressed to the patient. Her basal insulin was unchanged given her good a.m. glucoses. She was getting a little bit of sliding scale during the day to keep her controlled. Her mealtime NovoLog was increased a little bit from 10 to 14. The patient also endorsed some depressive symptoms while she was here. She was evaluated by Krishna Lyon and felt not to be a danger to herself or others, but we did go ahead and start her on some low dose Paxil. DISCHARGE VITAL SIGNS: Temperature 98.7, pulse 82, respirations 16, blood pressure 137/83, O2 saturation is 97% on room air. DISCHARGE DIET: Diabetic. DISCHARGE MEDICATIONS: Lantus 38 units subcutaneously nightly at bedtime, NovoLog 14 units t.i.d. with meals, Paxil 10 mg p.o. daily. FOLLOWUP AND PLAN: The patient is discharging back to group home on a slightly adjusted dose of insulin and Paxil. The patient is to return to care if nausea, vomiting or abdominal pain or other sign of possible returning DKA develop. Greater than 30 minutes was spent arranging discharge and counseling the patient.
== END 2019-08-07 13:00 | DRG 638 ==
LOC: ED 15:44 → SUATTDRO 08-04 02:46 → 2N 08-04 02:46
PROVIDERS: ATTEND Internal Medicine